=== PATIENT | male | born 1945 | race Native Hawaiian/Other Pacific Islander ===

== ENCOUNTER → 2017-02-04 | Outpatient (CLI) | payer MEDICARE, OTHER ==
[~2017-02-04] MED LIST: IBUP-238 PO; IBUP200T2 PO; TRAM50TA PO
[2017-02-04 11:02] LABS: AUTOMATED NEUTROPHIL # 3.7 TH/MM3 (1.8-7.7); BASOPHIL # 0.1 TH/MM3 (0-0.2); BASOPHIL % 0.9 % (0.0-2.0); EOSINOPHIL # 0.5 TH/MM3 (0-0.4); EOSINOPHIL % 6.7 % (0.0-4.0); HEMATOCRIT 38.4 % (39.0-51.0); HEMO FLAGS DIFF FINAL; LYMPH % 38.7 % (9.0-44.0); MEAN CELL VOLUME 86.5 FL (80.0-100.0); MEAN CORPUSCULAR HEMOGLOBIN 29.5 PG (27.0-34.0); MEAN CORPUSCULAR HGB CONC 34.1 % (32.0-36.0); MONO % 7.1 % (0.0-8.0); NEUT % 46.6 % (16.0-70.0); PLATELET COUNT 247 TH/MM3 (150-450); RED BLOOD COUNT 4.44 MIL/MM3 (4.50-5.90); RED CELL DISTRIBUTION WIDTH 13.3 % (11.6-17.2); WHITE BLOOD COUNT 7.8 TH/MM3 (4.0-11.0)
[2017-02-04 11:22] LABS: ANION GAP 9 MEQ/L (5-15); AST (GOT) 25 U/L (15-37); BICARBONATE 25.9 MEQ/L (21.0-32.0); BLOOD UREA NITROGEN 24 MG/DL (7-18); CHLORIDE 102 MEQ/L (98-107); GLOMERULAR FILTRATION RATE 64 ML/MIN (>89); GLUCOSE,FASTING 97 MG/DL (74-99); POTASSIUM 4.5 MEQ/L (3.5-5.1); SODIUM (NA) 137 MEQ/L (136-145)
[2017-02-04 11:26] LABS: ALKALINE PHOSPHATASE 74 U/L (45-117); ALT (GPT) 35 U/L (12-78); TOTAL BILIRUBIN ADULT 0.4 MG/DL (0.2-1.0)
--- NOTE | 2017-02-04 11:39 | RADRPT ---
EXAM DATE/TIME: 02/04/2017 11:22 [place] COMPARISON: No previous studies available for comparison. INDICATIONS : Evaluate for Pneumonia, Pneumothorax, and communicable diseases. Pre-op hip surgery. No chest complai nts. MEDICAL HISTORY : None. SURGICAL HISTORY : None. ENCOUNTER: Initial ACUITY: 1 day PAIN SCORE: 0/10 LOCATION: Bilateral chest FINDINGS: PA and lateral views of the chest demonstrate elevation of the right hemidiaphragm with some platelik e atelectasis versus scarring in the right lung base. There are no prior studies for comparison. Othe rwise, the rest of the lung lino are grossly clear. No definite pleural effusions or pulmonary stas a. The heart size is within normal limits. The bony structures are grossly intact.. CONCLUSION: 1. Elevation of the right hemidiaphragm with platelike atelectasis versus scarring in the right lower lung. 2. Otherwise, no other focal or acute intrathoracic disease. Ravin Ernandez MD on February 04, 2017 at 11:36 Board Certified Radiologist. This report was verified electronically.
[2017-02-04 11:56] LABS: BLOOD, URINE NEG (NEG); COMMENT (UR) CULT NOT INDICATED; CULTURE IF INDICATED CULT NOT INDICATED; GLUCOSE,URINE NEG (NEG); KETONE, URINE NEG (NEG); NITRITE,URINE NEG (NEG); PH, URINE 5.5 (5.0-8.5); SQUAMOUS EPITHELIAL CELL URINE 1 /hpf (0-5); URINE COLOR YELLOW (YELLW/STRAW)
--- NOTE | 2017-02-04 22:59 | EKG ---
Date Performed: 02/04/2017 Time Performed: 09:44:21 PTAGE: 71 years EKG: Sinus rhythm MARKED LEFT AXIS DEVIATION RIGHT BUNDLE BRANCH BLOCK ABNORMAL ECG NO PREVIOUS TRACING DOCTOR: Jac Canales Interpretating Date/Time 02/04/2017 22:57:55
== END ==
LOC: CPRE 09:03
PROVIDERS: ATTEND Orthopaedic Surgery
DX: Z01.810 Encounter for preprocedural cardiovascular examination (principal); Z01.811 Encounter for preprocedural respiratory examination; Z01.812 Encounter for preprocedural laboratory examination; M16.12 Unilateral primary osteoarthritis, left hip; R94.31 Abnormal electrocardiogram [ECG] [EKG]
CPT/HCPCS: 36415; 71020; 80053; 81001; 85025; 93005

== ENCOUNTER 2017-02-16 05:30 | Inpatient (IN) | payer MEDICARE, OTHER ==
--- NOTE | 2017-02-15 13:01 | MH ---
cc: ANDREW JAVIER DATE OF ADMISSION: 02/16/2017 DATE OF 1945 DATE OF DICTATION 02/15/2017 ADMISSION DIAGNOSIS End-stage osteoarthritis left hip ADDITIONAL DIAGNOSIS: Osteoarthritis both knees Osteoarthritis right hip. Severe lumbar spondylosis. CONTEMPLATED PROCEDURE: 1. Total hip replacement arthroplasty left hip through the anterior approach. 2. Aspiration injection right knee effusion 3. prophylactic radiation for prevention of myositis ossificans left hip. PAST HISTORY History of alcoholism. He grew up and lived in the [facility] but now in the [facility] for the past several years. 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 He saw me in with severe pain in the hips and knees and back pain. Even at that time he has severe osteoarthritis of the left hip and surgery was recommended but was not done because of insurance and other factors. He has been using [id number] NSAIDs and tramadol for pain. Lately he has been using a walker. PRESENT HISTORY: The patient saw me for this on January 31, 2017 saying that he has so much pain in his left hip is not able to ambulate without a walker, is not able to weight bear on the left leg. He is ready for surgery. He says is ready for surgery on both his hips and knees. He is now being admitted for surgical intervention of the left hip. He may choose an anterior approach in spite of the fact that he is a fairly large gentleman because he is very tall and is very stiff in his lumbar spine making him more likely to dislocate with a posterior approach. The difference between anterior posterior approaches have been discussed in the potential problems have been discussed with either approach. Post hospital course and postoperative course pain management all been discussed. Informed consent has been obtained. When the patient was seen for his preoperative visit. He has a fairly large effusion of the right knee without any redness or warmth. He has severe tricompartmental osteoarthritis both knees right worse than left. Therefore, I have decided to go ahead and aspirated his knee and injected with steroid after the surgical procedure on the left hip. This to be added to the consent when he comes in tomorrow to the same day surgery. Preoperative workup has been satisfactory. Medical clearance has been obtained. PAST SURGERIES Rhinoplasty. PAST HISTORY: He has history of alcoholism in the past but he has not drank in over a year. He has not worked in quite a while. ALLERGIES None. MEDICATIONS 1. Tramadol. 2. Ibuprofen. PHYSICAL EXAMINATION: VITAL SIGNS: Physical examination reveals a 6'4"0 inches tall and weighs 300 pounds. EXTREMITIES: He uses a walker. He can barely put his left foot down for weight bearing. He has a flexion contracture of about 15-20 degrees in the left hip. There is marked restriction range of motion with pain in the left hip. He has palpable pedal pulses in the feet moves toes well. He has multiple scars on both lower extremities but they are all well healed old there is no indication of any new skin lesions. Examination of the left groin reveals to be healthy with no indication of any skin problem there. Right knee has obvious effusion with pain on range of motion. Left knee has no pain and no effusion but also has pain and discomfort. His back is very stiff. HEAD, EYES, EARS, NOSE, AND THROAT: Head normocephalic, pupils react to light. Face symmetrical. He is missing a lot of teeth. He eventually need all the staple buttock and out of four to have a done at this time. He has not had any dental problems in the recent past. HEART: Regular rhythm. No murmurs. LUNGS: The lungs are clear to auscultation. RADIOLOGIC: X-rays of lumbar spine show severe spondylosis with multiple with osteophytic changes and degenerative disk disease. As mentioned before his hips and knees both show severe arthritis with now the left hip showing some subluxation of the joint but no obvious bone loss. The femoral head is starting to displaced superior laterally. ASSESSMENT AND PLAN: Potential risks and has a complications. The total joint arthroplasty in terms of being infection, phlebitis, blood clots, dislocation, fracture of all been discussed. Informed consent obtained. No guarantees made. MD DONNA Cee/luis /12:10 PM /12:20 PM
[~2017-02-16] VITALS: Ht 198.1 cm; Wt 135.5 kg
[~2017-02-16 05:30] MED LIST changes: -IBUP-238 PO
[2017-02-16] MEDS ORDERED: METOPROLOL TARTRATE 25 MG TAB PO PRN (06:00)
[2017-02-16] MEDS ORDERED: INSULIN HUMAN REGULAR 1,000 UNITS/10 ML VIAL SQ PRN (06:00)
[2017-02-16] MEDS ORDERED: CHLORHEXIDINE GLUCONATE 2 % 1 PACK (2 CLOTHS) TOPICAL PRN (06:00)
[2017-02-16] MEDS ORDERED: POVIDONE IODINE 5% (ANTISEPSIS KIT) 4 APPLICATIONS EACH NARE PRN (06:00)
[2017-02-16] MEDS ORDERED: SODIUM CHLORID 0.9% 500 ML IV PRN (06:00)
[2017-02-16] MEDS ORDERED: LACTATED RINGER'S 1000 ML IV PRN (06:00)
[2017-02-16] MEDS ORDERED: VANCOMYCIN 1500 MG/NS 500 ML (for 85-99 kg) IV SCH ×2 (06:15)
[2017-02-16] MEDS ORDERED: TRANEXAMIC ACID INJ 1,360 MG in SODIUM CHLORIDE 0.9% INJ 100 ML IV SCH ×5 (06:15→14:00)
[2017-02-16] MEDS ORDERED: ceFAZolin 2 GM PREMIX 50 ML IV SCH (06:15)
[2017-02-16] MEDS ORDERED: EXPAREL PERI-ARTICULAR INJECTION (TOTAL VOL. 60 ML) P-ARTICULR SCH ×2 (06:15)
[2017-02-16] MEDS ORDERED: FAMOTIDINE 20 MG/2 ML VIAL ONE (07:01)
[2017-02-16] MEDS ORDERED: ACETAMINOPHEN 1000 MG/100 ML 100 ML IV ONE (07:01)
[2017-02-16] MEDS ORDERED: GENTAMICIN SULFATE 80 MG/2 ML VIAL ONE ×2 (07:09)
[2017-02-16] MEDS ORDERED: BUPIVACAINE HCL PF 0.5% 30 ML VIAL ONE (08:26)
[2017-02-16] MEDS ORDERED: BUPIVACAINE HCL PF 0.25% 30 ML VIAL ONE (08:26)
[2017-02-16] MEDS ORDERED: DEXAMETHASONE SOD PHOS 4 MG/ML VIAL ONE (08:26)
[2017-02-16] MEDS ORDERED: methylPREDNISolone ACETATE 40 MG/ML VIAL ONE (08:27)
[2017-02-16] MEDS ORDERED: TRANEXAMIC ACID INJ 1,000 MG in SODIUM CHLORIDE 0.9% INJ 100 ML IV ONE (12:27)
[2017-02-16] MEDS ORDERED: NALOXONE HCL 0.4 MG/ML AMP IV PUSH PRN (12:30)
[2017-02-16] MEDS ORDERED: ACETAMINOPHEN/HYDROcodone 325 MG/5 MG TAB PO PRN (12:30)
[2017-02-16] MEDS ORDERED: ONDANSETRON HCL 4 MG/2 ML VIAL IVP PRN (12:30)
[2017-02-16] MEDS ORDERED: MORPHINE SULFATE 30 MG/30 ML PCA IV SCH (12:30)
[2017-02-16] MEDS ORDERED: SODIUM CHLORIDE 0.9% FLUSH 5 ML FLUSH IVF PRN (12:30)
[2017-02-16] MEDS ORDERED: TEMAZEPAM 15 MG CAP PO PRN (12:30)
[2017-02-16] MEDS ORDERED: diphenhydrAMINE HCL 50 MG/ML VIAL IV PUSH PRN (12:30)
[2017-02-16] MEDS ORDERED: DO NOT ADM ANY ANTICOAGULANT DRUGS PRN (12:50)
[2017-02-16] MEDS ORDERED: Post-op Orders (for Pharmacy) MISC XX ONE (13:00)
[2017-02-16 13:59] LABS: HEMATOCRIT 31.5 % (39.0-51.0); HEMOGLOBIN 10.7 GM/DL (13.0-17.0)
--- NOTE | 2017-02-16 13:59 | PD.CONS ---
[facility] By DR[facility] MARCO MORALES Reason for Consult Medical Management Primary Care Physician Unknown Diagnoses: History of Present Illness This is a pleasant 71 y/o male with history of End-stage osteoarthritis left hip at this time status post Left Total Hip Arthroplasty Anterior approach, Aspiration injection right knee effusion, Prophylactic radiation for prevention of myositis ossificans left hip. seen in PACU. as per Orthopedic Surgery notes he has severe OA of the left hip and surgery was recommended to him on 2011 when was first evaluated but not performed due to personal difficulties, he has been using NSAIDs and Tramadol for pain also using a Walker for ambulation Seen in PACU the patient states he does not have significant medical history other than his Osteoarthritis Appendectomy, and past history of alcohol and Tobacco dependence but now states he is not using any toxic substance. Review of Systems Constitutional: DENIES: Fever, Chills, Change in appetite Endocrine: DENIES: Heat/cold intolerance Eyes: DENIES: Blurred vision, Eye pain Musculoskeletal: COMPLAINS OF: Joint pain Except as stated in HPI: all other systems reviewed are Neg Past Family Social History Allergies: Coded Allergies: No Known Allergies (Verified Allergy, Unknown, 02/16/17) Past Medical History Osteoarthritis both knees Osteoarthritis right hip. Severe lumbar spondylosis. History of Alcoholism Past Surgical History Rhinoplasty Appendectomy Left Total knee arthroplasty today. Reported Medications Reported Meds & Active Scripts Active Reported Ibuprofen 200 Mg Tab 200 Mg PO Q4H PRN Tramadol (Tramadol HCl) 50 Mg Tab 50 Mg PO Q4H PRN Active Ordered Medications Current Medications Medications (Trade) Dose Ordered Sig/Toño Route Start Time Stop Time Status Last Admin Lactated Ringer's 1,000 ml @ 30 mls/hr Q24H PRN IV 02/16/17 06:00 02/19/17 05:59 02/16/17 06:15 Sodium Chloride 500 ml @ 30 mls/hr [id number] PRN IV 02/16/17 06:00 02/19/17 05:59 (Lopressor) 25 mg ELECTRICAL DISCHARGE MACHINE OPERATOR PRN PO 02/16/17 06:00 02/19/17 05:59 (Betadine 5% Antisepsis Kit) 1 applic ELECTRICAL DISCHARGE MACHINE OPERATOR PRN EACH NARE 02/16/17 06:00 02/19/17 05:59 02/16/17 06:05 (Chlorhexidine 2% Cloth) 3 pack ELECTRICAL DISCHARGE MACHINE OPERATOR PRN TOPICAL 02/16/17 06:00 02/19/17 05:59 02/16/17 06:00 (NovoLIN R INJ) See Protocol Table ... ELECTRICAL DISCHARGE MACHINE OPERATOR PRN SQ 02/16/17 06:00 02/19/17 05:59 Cefazolin Sodium/ Dextrose 50 ml @ 100 mls/hr ELECTRICAL DISCHARGE MACHINE OPERATOR IV 02/16/17 06:15 02/19/17 06:14 02/16/17 07:07 Vancomycin HCl 1500 mg/Sodium Chloride 515 ml @ 257.5 mls/ hr ELECTRICAL DISCHARGE MACHINE OPERATOR IV 02/16/17 06:15 02/19/17 06:14 02/16/17 07:11 Tranexamic Acid 1360 mg/Sodium Chloride 113.6 ml @ 200 mls/hr ONCE IV 02/16/17 06:15 02/16/17 17:00 02/16/17 12:27 Tranexamic Acid 1360 mg/Sodium Chloride 113.6 ml @ 200 mls/hr ONCE IV 02/16/17 06:15 02/16/17 17:00 02/16/17 13:06 Bupivacaine Liposome 20 ml/ Sodium Chloride 60 ml @ 120 mls/hr ONCE P-ARTICULR 02/16/17 06:15 02/16/17 16:00 02/16/17 12:41 Tranexamic Acid 1000 mg/Sodium Chloride 110 ml @ 0 mls/hr ONCE ONCE IV 02/16/17 12:27 02/16/17 12:28 UNV (NS Flush) 2 ml UNSCH PRN IVF 02/16/17 12:30 UNV (NS Flush) 2 ml BID IVF 02/16/17 21:00 UNV Cefazolin Sodium/ Dextrose 50 ml @ 100 mls/hr Q6H IV 02/16/17 12:30 02/17/17 00:59 UNV Vancomycin HCl 1500 mg/Sodium Chloride 515 ml @ 257.5 mls/ hr Q12H IV 02/16/17 23:00 02/17/17 00:59 UNV (Post-op Orders (for Pharmacy)) STAT ONCE XX 02/16/17 12:30 02/16/17 12:31 UNV (Lovenox Inj) 40 mg Q24H SQ 02/16/17 12:30 UNV ([place] 5-325 Mg) 2 tab Q6H PRN PO 02/16/17 12:30 UNV (Ultram) 100 mg Q6H PRN PO 02/16/17 12:30 UNV (Toradol Inj) 30 mg Q8H IVP 02/16/17 12:30 02/18/17 20:31 UNV Tranexamic Acid / Sodium Chloride 100 ml @ 200 mls/hr UNSCH IV 02/16/17 12:30 02/16/17 12:59 UNV (Zofran Inj) 4 mg Q6H PRN IVP 02/16/17 12:30 UNV (Colace) 100 mg BID PO 02/17/17 21:00 UNV (Restoril) 15 mg HS PRN PO 02/16/17 12:30 UNV (Narcan Inj) 0.4 mg UNSCH PRN IV PUSH 02/16/17 12:30 (Benadryl Inj) 25 mg Q6H PRN IV PUSH 02/16/17 12:30 UNV (Morphine 1 Mg/ ml FARM OR RANCH ANIMAL CARETAKER) 30 mg UNSCH IV 02/16/17 12:30 FARM OR RANCH ANIMAL CARETAKER Dosage Infused (Pha) 1 Q8HR .XX 02/16/17 14:00 (Ofirmev 1000 Mg/ 100 ml Inj) 1,000 mg Q12HR IV 02/16/17 14:00 02/18/17 21:01 UNV Dextrose/Sodium Chloride 1,000 ml @ 125 mls/hr Q8H IV 02/16/17 12:26 UNV (Ofirmev 1000 Mg/ 100 ml Inj) 1,000 mg Q12H IV 02/17/17 10:30 UNV Miscellaneous Information ALL NURSING DEPARTME... UNSCH PRN .XX 02/16/17 12:50 02/17/17 12:49 Family History Asked and denied. Social History Lives with his Son and denies any toxic habit. Physical Exam Vital Signs Vital Signs Date Time Temp Pulse Resp B/P (MAP) Pulse Ox O2 Delivery O2 Flow Rate FiO2 02/16/17 06:05 98.6 79 20 110/74 (86) 96 Physical Exam GENERAL: Obesity in no acute distress. SKIN: No rashes, ecchymoses or lesions. Cool and dry. HEAD: Atraumatic. Normocephalic. No temporal or scalp tenderness. EYES: Pupils equal round and reactive. Extraocular motions intact. No scleral icterus. No injection or drainage. ENT: Nose without bleeding, purulent drainage or septal hematoma. Throat without erythema, tonsillar hypertrophy or exudate. Uvula midline. Airway patent. NECK: Trachea midline. No JVD or lymphadenopathy. Supple, nontender, no meningeal signs. CARDIOVASCULAR: Regular rate and rhythm without murmurs, gallops, or rubs. RESPIRATORY: Clear to auscultation. Breath sounds equal bilaterally. No wheezes , rales, or rhonchi. GASTROINTESTINAL: Abdomen soft, non-tender, nondistended. No hepato-splenomegaly , or palpable masses. No guarding. MUSCULOSKELETAL: No clubbing cyanosis or edema, clean surgical dressing. NEUROLOGICAL: Awake and alert. Cranial nerves II through XII intact. Motor and sensory grossly within normal limits. Five out of 5 muscle strength in all muscle groups. Normal speech. Laboratory Laboratory Tests Test 02/16/17 12:02 Date/Time Source Procedure Growth Status 02/16/17 12:02 Fluid Synovial Fluid Fungal Smear Pending Received 02/16/17 12:02 Fluid Synovial Fluid Fungal Culture Pending Received Assessment and Plan Assessment and Plan 1. 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 pain medicine in Chart, asked to complete laboratory and follow in am tomorrow. DVT as per Orthopedic Surgery. Appreciated Doctor Marco Morlaes for this consult. Code Status Full Code. Discussed Condition With patient and Nurse In PACU. Antonio Boone MD Feb 16, 2017 13:59
--- NOTE | 2017-02-16 13:59 | PD.CONS ---
HPI Service [facility] Consult Requested By DR. MARCO MORALES Reason for Consult Medical Management Primary Care Physician Unknown Diagnoses: History of Present Illness This is a pleasant 71 y/o male with history of End-stage osteoarthritis left hip at this time status post Left Total Hip Arthroplasty Anterior approach, Aspiration injection right knee effusion, Prophylactic radiation for prevention of myositis ossificans left hip. seen in PACU. as per Orthopedic Surgery notes he has severe OA of the left hip and surgery was recommended to him on 2011 when was first evaluated but not performed due to personal difficulties, he has been using NSAIDs and Tramadol for pain also using a Walker for ambulation Seen in PACU the patient states he does not have significant medical history other than his Osteoarthritis Appendectomy, and past history of alcohol and Tobacco dependence but now states he is not using any toxic substance. Review of Systems Constitutional: DENIES: Fever, Chills, Change in appetite Endocrine: DENIES: Heat/cold intolerance Eyes: DENIES: Blurred vision, Eye pain Musculoskeletal: COMPLAINS OF: Joint pain Except as stated in HPI: all other systems reviewed are Neg Past Family Social History Allergies: Coded Allergies: No Known Allergies (Verified Allergy, Unknown, 02/16/17) Past Medical History Osteoarthritis both knees Osteoarthritis right hip. Severe lumbar spondylosis. History of Alcoholism Past Surgical History Rhinoplasty Appendectomy Left Total knee arthroplasty today. Reported Medications Reported Meds & Active Scripts Active Reported Ibuprofen 200 Mg Tab 200 Mg PO Q4H PRN Tramadol (Tramadol HCl) 50 Mg Tab 50 Mg PO Q4H PRN Active Ordered Medications Current Medications Medications (Trade) Dose Ordered Sig/Toño Route Start Time Stop Time Status Last Admin Lactated Ringer's 1,000 ml @ 30 mls/hr Q24H PRN IV 02/16/17 06:00 02/19/17 05:59 02/16/17 06:15 Sodium Chloride 500 ml @ 30 mls/hr [id number] PRN IV 02/16/17 06:00 02/19/17 05:59 (Lopressor) 25 mg ELEVATOR DISPATCHER PRN PO 02/16/17 06:00 02/19/17 05:59 (Betadine 5% Antisepsis Kit) 1 applic ELEVATOR DISPATCHER PRN EACH NARE 02/16/17 06:00 02/19/17 05:59 02/16/17 06:05 (Chlorhexidine 2% Cloth) 3 pack ELEVATOR DISPATCHER PRN TOPICAL 02/16/17 06:00 02/19/17 05:59 02/16/17 06:00 (NovoLIN R INJ) See Protocol Table ... ELEVATOR DISPATCHER PRN SQ 02/16/17 06:00 02/19/17 05:59 Cefazolin Sodium/ Dextrose 50 ml @ 100 mls/hr ELEVATOR DISPATCHER IV 02/16/17 06:15 02/19/17 06:14 02/16/17 07:07 Vancomycin HCl 1500 mg/Sodium Chloride 515 ml @ 257.5 mls/ hr ELEVATOR DISPATCHER IV 02/16/17 06:15 02/19/17 06:14 02/16/17 07:11 Tranexamic Acid 1360 mg/Sodium Chloride 113.6 ml @ 200 mls/hr ONCE IV 02/16/17 06:15 02/16/17 17:00 02/16/17 12:27 Tranexamic Acid 1360 mg/Sodium Chloride 113.6 ml @ 200 mls/hr ONCE IV 02/16/17 06:15 02/16/17 17:00 02/16/17 13:06 Bupivacaine Liposome 20 ml/ Sodium Chloride 60 ml @ 120 mls/hr ONCE P-ARTICULR 02/16/17 06:15 02/16/17 16:00 02/16/17 12:41 Tranexamic Acid 1000 mg/Sodium Chloride 110 ml @ 0 mls/hr ONCE ONCE IV 02/16/17 12:27 02/16/17 12:28 UNV (NS Flush) 2 ml UNSCH PRN IVF 02/16/17 12:30 UNV (NS Flush) 2 ml BID IVF 02/16/17 21:00 UNV Cefazolin Sodium/ Dextrose 50 ml @ 100 mls/hr Q6H IV 02/16/17 12:30 02/17/17 00:59 UNV Vancomycin HCl 1500 mg/Sodium Chloride 515 ml @ 257.5 mls/ hr Q12H IV 02/16/17 23:00 02/17/17 00:59 UNV (Post-op Orders (for Pharmacy)) STAT ONCE XX 02/16/17 12:30 02/16/17 12:31 UNV (Lovenox Inj) 40 mg Q24H SQ 02/16/17 12:30 UNV ([place] 5-325 Mg) 2 tab Q6H PRN PO 02/16/17 12:30 UNV (Ultram) 100 mg Q6H PRN PO 02/16/17 12:30 UNV (Toradol Inj) 30 mg Q8H IVP 02/16/17 12:30 02/18/17 20:31 UNV Tranexamic Acid / Sodium Chloride 100 ml @ 200 mls/hr UNSCH IV 02/16/17 12:30 02/16/17 12:59 UNV (Zofran Inj) 4 mg Q6H PRN IVP 02/16/17 12:30 UNV (Colace) 100 mg BID PO 02/17/17 21:00 UNV (Restoril) 15 mg HS PRN PO 02/16/17 12:30 UNV (Narcan Inj) 0.4 mg UNSCH PRN IV PUSH 02/16/17 12:30 (Benadryl Inj) 25 mg Q6H PRN IV PUSH 02/16/17 12:30 UNV (Morphine 1 Mg/ ml BOX INSPECTOR) 30 mg UNSCH IV 02/16/17 12:30 BOX INSPECTOR Dosage Infused (Pha) 1 Q8HR .XX 02/16/17 14:00 (Ofirmev 1000 Mg/ 100 ml Inj) 1,000 mg Q12HR IV 02/16/17 14:00 02/18/17 21:01 UNV Dextrose/Sodium Chloride 1,000 ml @ 125 mls/hr Q8H IV 02/16/17 12:26 UNV (Ofirmev 1000 Mg/ 100 ml Inj) 1,000 mg Q12H IV 02/17/17 10:30 UNV Miscellaneous Information ALL NURSING DEPARTME... UNSCH PRN .XX 02/16/17 12:50 02/17/17 12:49 Family History Asked and denied. Social History Lives with his Son and denies any toxic habit. Physical Exam Vital Signs Vital Signs Date Time Temp Pulse Resp B/P (MAP) Pulse Ox O2 Delivery O2 Flow Rate FiO2 02/16/17 06:05 98.6 79 20 110/74 (86) 96 Physical Exam GENERAL: Obesity in no acute distress. SKIN: No rashes, ecchymoses or lesions. Cool and dry. HEAD: Atraumatic. Normocephalic. No temporal or scalp tenderness. EYES: Pupils equal round and reactive. Extraocular motions intact. No scleral icterus. No injection or drainage. ENT: Nose without bleeding, purulent drainage or septal hematoma. Throat without erythema, tonsillar hypertrophy or exudate. Uvula midline. Airway patent. NECK: Trachea midline. No JVD or lymphadenopathy. Supple, nontender, no meningeal signs. CARDIOVASCULAR: Regular rate and rhythm without murmurs, gallops, or rubs. RESPIRATORY: Clear to auscultation. Breath sounds equal bilaterally. No wheezes , rales, or rhonchi. GASTROINTESTINAL: Abdomen soft, non-tender, nondistended. No hepato-splenomegaly , or palpable masses. No guarding. MUSCULOSKELETAL: No clubbing cyanosis or edema, clean surgical dressing. NEUROLOGICAL: Awake and alert. Cranial nerves II through XII intact. Motor and sensory grossly within normal limits. Five out of 5 muscle strength in all muscle groups. Normal speech. Laboratory Laboratory Tests Test 02/16/17 12:02 Date/Time Source Procedure Growth Status 02/16/17 12:02 Fluid Synovial Fluid Fungal Smear Pending Received 02/16/17 12:02 Fluid Synovial Fluid Fungal Culture Pending Received Assessment and Plan Assessment and Plan 1. 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 pain medicine in Chart, asked to complete laboratory and follow in am tomorrow. DVT as per Orthopedic Surgery. Appreciated Doctor Marco Morales for this consult. Code Status Full Code. Discussed Condition With patient and Nurse In PACU. Antonio Boone MD Feb 16, 2017 13:59
--- NOTE | 2017-02-16 13:59 | PD.CONS ---
[facility] Request[facility] By DR. MARCO MORALES Reason for Consult Medical Management Primary Care Physician Unknown Diagnoses: History of Present Illness This is a pleasant 71 y/o male with history of End-stage osteoarthritis left hip at this time status post Left Total Hip Arthroplasty Anterior approach, Aspiration injection right knee effusion, Prophylactic radiation for prevention of myositis ossificans left hip. seen in PACU. as per Orthopedic Surgery notes he has severe OA of the left hip and surgery was recommended to him on 2011 when was first evaluated but not performed due to personal difficulties, he has been using NSAIDs and Tramadol for pain also using a Walker for ambulation Seen in PACU the patient states he does not have significant medical history other than his Osteoarthritis Appendectomy, and past history of alcohol and Tobacco dependence but now states he is not using any toxic substance. Review of Systems Constitutional: DENIES: Fever, Chills, Change in appetite Endocrine: DENIES: Heat/cold intolerance Eyes: DENIES: Blurred vision, Eye pain Musculoskeletal: COMPLAINS OF: Joint pain Except as stated in HPI: all other systems reviewed are Neg Past Family Social History Allergies: Coded Allergies: No Known Allergies (Verified Allergy, Unknown, 02/16/17) Past Medical History Osteoarthritis both knees Osteoarthritis right hip. Severe lumbar spondylosis. History of Alcoholism Past Surgical History Rhinoplasty Appendectomy Left Total knee arthroplasty today. Reported Medications Reported Meds & Active Scripts Active Reported Ibuprofen 200 Mg Tab 200 Mg PO Q4H PRN Tramadol (Tramadol HCl) 50 Mg Tab 50 Mg PO Q4H PRN Active Ordered Medications Current Medications Medications (Trade) Dose Ordered Sig/Toño Route Start Time Stop Time Status Last Admin Lactated Ringer's 1,000 ml @ 30 mls/hr Q24H PRN IV 02/16/17 06:00 02/19/17 05:59 02/16/17 06:15 Sodium Chloride 500 ml @ 30 mls/hr [id number] PRN IV 02/16/17 06:00 02/19/17 05:59 (Lopressor) 25 mg WELL HEAD PUMPER PRN PO 02/16/17 06:00 02/19/17 05:59 (Betadine 5% Antisepsis Kit) 1 applic WELL HEAD PUMPER PRN EACH NARE 02/16/17 06:00 02/19/17 05:59 02/16/17 06:05 (Chlorhexidine 2% Cloth) 3 pack WELL HEAD PUMPER PRN TOPICAL 02/16/17 06:00 02/19/17 05:59 02/16/17 06:00 (NovoLIN R INJ) See Protocol Table ... WELL HEAD PUMPER PRN SQ 02/16/17 06:00 02/19/17 05:59 Cefazolin Sodium/ Dextrose 50 ml @ 100 mls/hr WELL HEAD PUMPER IV 02/16/17 06:15 02/19/17 06:14 02/16/17 07:07 Vancomycin HCl 1500 mg/Sodium Chloride 515 ml @ 257.5 mls/ hr WELL HEAD PUMPER IV 02/16/17 06:15 02/19/17 06:14 02/16/17 07:11 Tranexamic Acid 1360 mg/Sodium Chloride 113.6 ml @ 200 mls/hr ONCE IV 02/16/17 06:15 02/16/17 17:00 02/16/17 12:27 Tranexamic Acid 1360 mg/Sodium Chloride 113.6 ml @ 200 mls/hr ONCE IV 02/16/17 06:15 02/16/17 17:00 02/16/17 13:06 Bupivacaine Liposome 20 ml/ Sodium Chloride 60 ml @ 120 mls/hr ONCE P-ARTICULR 02/16/17 06:15 02/16/17 16:00 02/16/17 12:41 Tranexamic Acid 1000 mg/Sodium Chloride 110 ml @ 0 mls/hr ONCE ONCE IV 02/16/17 12:27 02/16/17 12:28 UNV (NS Flush) 2 ml UNSCH PRN IVF 02/16/17 12:30 UNV (NS Flush) 2 ml BID IVF 02/16/17 21:00 UNV Cefazolin Sodium/ Dextrose 50 ml @ 100 mls/hr Q6H IV 02/16/17 12:30 02/17/17 00:59 UNV Vancomycin HCl 1500 mg/Sodium Chloride 515 ml @ 257.5 mls/ hr Q12H IV 02/16/17 23:00 02/17/17 00:59 UNV (Post-op Orders (for Pharmacy)) STAT ONCE XX 02/16/17 12:30 02/16/17 12:31 UNV (Lovenox Inj) 40 mg Q24H SQ 02/16/17 12:30 UNV ([place] 5-325 Mg) 2 tab Q6H PRN PO 02/16/17 12:30 UNV (Ultram) 100 mg Q6H PRN PO 02/16/17 12:30 UNV (Toradol Inj) 30 mg Q8H IVP 02/16/17 12:30 02/18/17 20:31 UNV Tranexamic Acid / Sodium Chloride 100 ml @ 200 mls/hr UNSCH IV 02/16/17 12:30 02/16/17 12:59 UNV (Zofran Inj) 4 mg Q6H PRN IVP 02/16/17 12:30 UNV (Colace) 100 mg BID PO 02/17/17 21:00 UNV (Restoril) 15 mg HS PRN PO 02/16/17 12:30 UNV (Narcan Inj) 0.4 mg UNSCH PRN IV PUSH 02/16/17 12:30 (Benadryl Inj) 25 mg Q6H PRN IV PUSH 02/16/17 12:30 UNV (Morphine 1 Mg/ ml DISABILITIES SERVICES OFFICER) 30 mg UNSCH IV 02/16/17 12:30 DISABILITIES SERVICES OFFICER Dosage Infused (Pha) 1 Q8HR .XX 02/16/17 14:00 (Ofirmev 1000 Mg/ 100 ml Inj) 1,000 mg Q12HR IV 02/16/17 14:00 02/18/17 21:01 UNV Dextrose/Sodium Chloride 1,000 ml @ 125 mls/hr Q8H IV 02/16/17 12:26 UNV (Ofirmev 1000 Mg/ 100 ml Inj) 1,000 mg Q12H IV 02/17/17 10:30 UNV Miscellaneous Information ALL NURSING DEPARTME... UNSCH PRN .XX 02/16/17 12:50 02/17/17 12:49 Family History Asked and denied. Social History Lives with his Son and denies any toxic habit. Physical Exam Vital Signs Vital Signs Date Time Temp Pulse Resp B/P (MAP) Pulse Ox O2 Delivery O2 Flow Rate FiO2 02/16/17 06:05 98.6 79 20 110/74 (86) 96 Physical Exam GENERAL: Obesity in no acute distress. SKIN: No rashes, ecchymoses or lesions. Cool and dry. HEAD: Atraumatic. Normocephalic. No temporal or scalp tenderness. EYES: Pupils equal round and reactive. Extraocular motions intact. No scleral icterus. No injection or drainage. ENT: Nose without bleeding, purulent drainage or septal hematoma. Throat without erythema, tonsillar hypertrophy or exudate. Uvula midline. Airway patent. NECK: Trachea midline. No JVD or lymphadenopathy. Supple, nontender, no meningeal signs. CARDIOVASCULAR: Regular rate and rhythm without murmurs, gallops, or rubs. RESPIRATORY: Clear to auscultation. Breath sounds equal bilaterally. No wheezes , rales, or rhonchi. GASTROINTESTINAL: Abdomen soft, non-tender, nondistended. No hepato-splenomegaly , or palpable masses. No guarding. MUSCULOSKELETAL: No clubbing cyanosis or edema, clean surgical dressing. NEUROLOGICAL: Awake and alert. Cranial nerves II through XII intact. Motor and sensory grossly within normal limits. Five out of 5 muscle strength in all muscle groups. Normal speech. Laboratory Laboratory Tests Test 02/16/17 12:02 Date/Time Source Procedure Growth Status 02/16/17 12:02 Fluid Synovial Fluid Fungal Smear Pending Received 02/16/17 12:02 Fluid Synovial Fluid Fungal Culture Pending Received Assessment and Plan Assessment and Plan 1. 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 pain medicine in Chart, asked to complete laboratory and follow in am tomorrow. DVT as per Orthopedic Surgery. Appreciated Doctor Marco Morales for this consult. Code Status Full Code. Discussed Condition With patient and Nurse In PACU. Antonio Boone MD Feb 16, 2017 13:59
[2017-02-16] MEDS: PCA - TOTAL MG MORPHINE DELIVERED PER SHIFT SCH ×2 (14:00→22:33)
[2017-02-16] MEDS ORDERED: ACETAMINOPHEN 1000 MG/100 ML VIAL IV SCH (14:00)
[2017-02-16] MEDS ORDERED: *morphine SULFATE 8 MG/ML PERIprocedure ONLY ONE (14:01)
--- NOTE | 2017-02-16 14:14 | MP ---
cc: ANDREW LARA DATE OF SURGERY: 02/16/2017 PREOPERATIVE DIAGNOSIS 1. Osteoarthritis, left hip. 2. Osteoarthritis, right hip. 3. Osteoarthritis, bilateral knees. 4. Large effusion, right knee. POSTOPERATIVE DIAGNOSIS 1. Osteoarthritis, left hip. 2. Osteoarthritis, right hip. 3. Osteoarthritis, bilateral knees. 4. Large effusion, right knee. OPERATIVE PROCEDURE 1. Total hip replacement arthroplasty, right hip, through an anterior supine intramuscular approach using [employer] components. 2. Arthrocentesis right knee with injection of steroid. Level of difficulty, moderate to severe:patient over 300 lbs, 6' 4" tall and flexion contractue left hip IMPLANTS Cup: 70 mm with single dome screw and a flat base liner. Stem: 20 mm Taperloc, standard offset. Head: 36 mm ceramic -[address] Lara. ANESTHESIA General. TECHNIQUE After induction of general anesthesia a Kumar catheter was introduced. The patient was placed appropriately on the operating table with head and foot extensions because of his height. The lower end of the table was padded with double eggcrate and tape. The patient was brought with his pelvis to the brink of the table so we could extend his hip. Both hips and lower abdomen and both lower extremities were thoroughly prepped with alcohol and ChloraPrep and draped in routine fashion including multiple drapes. An incision was then made about five inches long, two fingerbreadths below and lateral to the anterior superior iliac spine. Extending distally the fascia was identified and subcutaneous tissue elevated. The fibers of the vastus lateralis were identified by the purplish coloration and the fascia incised 1 cm lateral to the edge of the tensor fascia karime. Finger dissection was carried out. Retractors were introduced. Fascia was incised. The circumflex vessels were identified, clamped and cauterized. We also used the Battery [employer] system for this. Blunt dissection was carried out superior to inferior and anterior retractors were placed to delineate the capsule and then after using the Aquamantys liberally on the capsule a capsulectomy was carried out. There were significant osteophytic changes at the neck which were all excised to be able to make clean cuts with the saw. Fluoroscopic imaging was carried out to identify the site of osteotomy. Proximal and distal osteotomies were carried out and because of the significant spurring and osteophytic changes some time had to be spent to remove this thick wafer of bone and then excise the head of the femur with a Steinmann pin. Further resection of the femoral neck was carried out after fluc8 imaging. Dissection was carried out to excise the labrum, particularly posteriorly. Retractors were introduced. Bony confines were palpated and visualized. Hemispherical cutout reamers were used up to 64 mm, and then the standard reamers were used which entailed some difficulty and time involved. At any rate we reamed them to 69 mm, watched it fluoroscopically and then impacted a 70 mm cup and a single dome screw was placed 30 mm long. Polypectomy was impacted in and it bottomed out nicely. Attention was then directed to the femur. Considerable time had to be taken to complete the dissection around the femoral neck and the inner surface of the greater trochanter so as to be able to elevate the hip into the wound with appropriate retraction. We used the Omni-Tract tabletop retractor and also put him in reverse Trendelenburg as well as put the foot down. At any rate we got good access followed by using cookie-cutter and canal finder and broaches to 20 mm broach which fits very nicely. This was removed and a 20 mm standard offset Taperloc stem impacted in place and then trial reduction carried out with a -3 head. Everything looked good except that we probably could do with a little more length in this hip, but dislocation was quite difficult. Once it was dislocated a 36 mm ceramic standard neck length head was placed on the Aldana taper and final reduction was carried out. There was good position, alignment and stability. Judging by the fluoroscopic imaging we possibly had lengthened him about 3 or 4 mm. He has significant pelvic tilt making limb length assessment quite difficult. The wound was irrigated with saline solution. There was good hemostasis. The fascia was closed with #2 Quill, the subcutaneous tissue with 2-0 Vicryl, skin with subcuticular 3-0 Quill. A special dressing with suction was then placed over the incision. The right knee area was cleaned. It had already been prepped and using new gloves an 18-gauge spinal needle was introduced superolaterally and about 80 cc of clear serous fluid was obtained. A mixture of 1 mL of Decadron, 1 mL of Depo-Medrol and 3 mL of Marcaine was instilled into the joint. Pressure was applied and then a band-aid applied. The patient was transferred to the recovery room in satisfactory condition with an abduction pillow. The patient tolerated the procedure well. TRANSFUSIONS AND COMPLICATIONS None. POSTOPERATIVE CONDITION Satisfactory. ESTIMATED BLOOD LOSS 450 mL. MD DONNA Cee/ROXIE /12:25 PM /2:17 PM MTDKiara
--- NOTE | 2017-02-16 14:27 | RADRPT ---
EXAM DATE/TIME: 02/16/2017 13:24 [facility] COMPARISON: HIP LEFT (AP&LAT 2/3VWS) WO AP PELVIS, February 16, 2017, 11:53. INDICATIONS : Post op left hip surgery. MEDICAL HISTORY : None. SURGICAL HISTORY : None. ENCOUNTER: Initial ACUITY: 1 day PAIN SCORE: Non-responsive. LOCATION: Left hip FINDINGS: A two view examination of the left hip was performed. Left hip arthroplasty. Postsurgical changes. No hardware loosening or fracture. The acetabulum is grossly intact. CONCLUSION: Left hip arthroplasty. Tim Nava MD on February 16, 2017 at 14:25 Board Certified Radiologist. This report was verified electronically.
[2017-02-16 14:42] VITALS: BP 134/87; PULSE 89; RESP 17; TEMP 96.5; O2SAT 97
[2017-02-16 14:43] LABS: WBC, SYNOVIAL FLUID 430 /MM3 (0-200)
--- NOTE | 2017-02-16 14:49 | RADRPT ---
EXAM DATE/TIME: 02/16/2017 11:53 [facility] COMPARISON: No previous studies available for comparison. INDICATIONS : Left total hip replacement in OR. MEDICAL HISTORY : None. SURGICAL HISTORY : None. ENCOUNTER: Initial ACUITY: 1 day PAIN SCORE: Non-responsive. LOCATION: Left hip CONCLUSION: Fluoroscopic images during left hip arthroplasty. Tim Nava MD on February 16, 2017 at 14:47 Board Certified Radiologist. This report was verified electronically.
[2017-02-16] MEDS: DEXT 5%-NACL 0.9% 1000 ML INJ 1,000 ML IV SCH (15:00)
[2017-02-16] MEDS: ceFAZolin 2 GM PREMIX 50 ML IV SCH ×2 (18:05→22:32)
[2017-02-16] MEDS: KETOROLAC TROMETHAMINE 30 MG/ML (IVP) VIAL IVP SCH ×2 (18:05→23:16)
[2017-02-16 18:20] LABS: CHOLESTEROL 134 MG/DL (120-200); TRIGLYCERIDES 89 MG/DL (42-150)
[2017-02-16 18:45] LABS: CHOLESTEROL/ HDL RATIO 2.38 RATIO; HDL CHOLESTEROL 56.1 MG/DL (40.0-60.0); LDL CHOLESTEROL 60 MG/DL (0-99)
[2017-02-16 19:15] LABS: HEMOGLOBIN A1C 5.8 % (4.3-6.0)
[2017-02-16] MEDS: SODIUM CHLORIDE 0.9% FLUSH 5 ML FLUSH IVF SCH (19:56)
[2017-02-16 20:54] VITALS: BP 144/85; PULSE 92; RESP 20; TEMP 97.9; O2SAT 99
[2017-02-16] MEDS ORDERED: VANCOMYCIN INJ 1,500 MG in SODIUM CHLORID 0.9% 500 ML INJ 500 ML IV SCH (23:00)
[2017-02-17] VITALS (8 sets, daily range): BP systolic 111–151; BP diastolic 70–93; PULSE 90–112; RESP 16–20; TEMP 97.4–98.5; O2SAT 95–100
[2017-02-17] MEDS: ceFAZolin 2 GM PREMIX 50 ML IV SCH (03:52)
[2017-02-17] MEDS: DEXT 5%-NACL 0.9% 1000 ML INJ 1,000 ML IV SCH ×4 (03:55→21:13)
[2017-02-17] MEDS: ACETAMINOPHEN 1000 MG/100 ML VIAL IV SCH ×2 (05:07→17:48)
[2017-02-17] MEDS: PCA - TOTAL MG MORPHINE DELIVERED PER SHIFT SCH (05:23)
[2017-02-17 06:53] LABS: HEMOGLOBIN 10.4 GM/DL (13.0-17.0)
[2017-02-17 07:26] LABS: BICARBONATE 25.6 MEQ/L (21.0-32.0); CALCIUM 8.2 MG/DL (8.5-10.1); CREATININE 1.36 MG/DL (0.60-1.30)
--- NOTE | 2017-02-17 07:46 | PD.ORT.PN ---
Subjective Post Op Day #: 1 Pain Scale: 2 Subjective Remarks not moving left hip, no pain, right knee much better Objective Vitals Microbiology Date/Time Source Procedure Growth Status 02/16/17 12:02 Fluid Synovial Fluid Fungal Smear Pending Received 02/16/17 12:02 Fluid Synovial Fluid Fungal Culture Pending Received Vital Signs Date Time Temp Pulse Resp B/P (MAP) Pulse Ox O2 Delivery O2 Flow Rate FiO2 02/17/17 05:49 98.4 98 18 151/93 (112) 100 02/17/17 05:23 18 02/17/17 00:48 98.5 90 20 111/92 (98) 96 02/16/17 22:33 17 02/16/17 20:54 97.9 92 20 144/85 (104) 99 02/16/17 20:01 Nasal Cannula 3.00 02/16/17 15:50 Nasal Cannula 2.00 02/16/17 14:42 96.5 89 17 134/87 (103) 97 02/16/17 14:30 82 13 134/80 (98) 98 Nasal Cannula 2 02/16/17 14:00 84 13 133/76 (95) 98 Nasal Cannula 2 02/16/17 13:55 16 02/16/17 13:45 84 16 109/58 (75) 98 Nasal Cannula 2 02/16/17 13:30 85 15 127/73 (91) 95 Nasal Cannula 2 02/16/17 13:15 79 16 125/77 (93) 92 Nasal Cannula 2 02/16/17 13:00 83 18 116/67 (83) 95 Nasal Cannula 2 02/16/17 12:48 97.8 87 16 133/85 (101) 94 Nasal Cannula 2 I/O 02/16/17 02/16/17 02/16/17 02/17/17 02/17/17 02/17/17 07:00 15:00 23:00 07:00 15:00 23:00 Intake Total 3000 ml 520 ml Output Total 800 ml 2500 ml Balance 2200 ml -1980 ml Intake Oral 520 ml Other 3000 ml Output Urine Total 200 ml 2500 ml Estimated Blood Loss 600 ml Result Diagram: 02/17/1715 02/17/1715 Assessment & Plan Ortho Post Op Day #: 1 Problem List: Assessment and Plan awake, alert, comfortable. Moves toes well, works quads well. Labs and X rays OK To [facility] tuesday Carter Lara MD Feb 17, 2017 07:46
[2017-02-17] MEDS: SODIUM CHLORIDE 0.9% FLUSH 5 ML FLUSH IVF SCH ×2 (09:00→19:59)
[2017-02-17] MEDS: CELECOXIB 200 MG CAP PO SCH (09:28)
[2017-02-17] MEDS: KETOROLAC TROMETHAMINE 30 MG/ML (IVP) VIAL IVP SCH ×3 (09:29→23:39)
[2017-02-17] MEDS ORDERED: INFLUENZA VIRUS VACCINE (QUADRIVALENT) 0.5 ML SYR IM ONE (10:00)
[2017-02-17] MEDS ORDERED: PNEUMOCOCCAL POLYVALENT INJ 25 MCG/0.5 ML SYR IM ONE (10:00)
--- NOTE | 2017-02-17 10:20 | RC ---
cc: ANDREW JAVIER BRAD A. MD DATE OF SERVICE 02/16/2017 04:00 p.m. Mr. Tran is a 71-year-old male who underwent a left hip arthroplasty for end-stage osteoarthritis of his left hip. He has osteoarthritis of both knees and both hips as well as severe lumbar spondylosis. He does not recall having any radiation therapy in the past. We are asked to see him for prevention of ossification of bone of the left hip. PAST MEDICAL HISTORY Significant for playing cricket. He lives in the [facility]. He has had pain for sometime. He is walking with a walker. He underwent surgery. He comes down to discuss treatment considerations. We discussed radiation therapy has been shown to decrease the risk of heterotopic ossification of bone. Alternative would be anti-inflammatories. He accepts pursuing radiation therapy. Our plan would be 7 Gy left hip, treatment on 02/17/2017. He expressed good understanding of treatment approach. Consent obtained. We discussed the risk of wound healing. Also, the risk of severe injury such as injury to the bone, joint, soft tissue and muscle. He expressed good understanding of the treatment approach. Denny Ruiz MD Radiation Oncologist NIKO/ROSE MARY /4:08 PM /10:11 AM
--- NOTE | 2017-02-17 10:20 | RC ---
cc: ANDREW JAVIER BRAD A. MD DATE OF SERVICE 02/16/2017 04:00 p.m. Mr. Tran is a 71-year-old male who underwent a left hip arthroplasty for end-stage osteoarthritis of his left hip. He has osteoarthritis of both knees and both hips as well as severe lumbar spondylosis. He does not recall having any radiation therapy in the past. We are asked to see him for prevention of ossification of bone of the left hip. PAST MEDICAL HISTORY Significant for playing cricket. He lives in the [facility]. He has had pain for sometime. He is walking with a walker. He underwent surgery. He comes down to discuss treatment considerations. We discussed radiation therapy has been shown to decrease the risk of heterotopic ossification of bone. Alternative would be anti-inflammatories. He accepts pursuing radiation therapy. Our plan would be 7 Gy left hip, treatment on 02/17/2017. He expressed good understanding of treatment approach. Consent obtained. We discussed the risk of wound healing. Also, the risk of severe injury such as injury to the bone, joint, soft tissue and muscle. He expressed good understanding of the treatment approach. Denny Ruiz MD Radiation Oncologist NIKO/ROSE MARY /4:08 PM /10:11 AM
--- NOTE | 2017-02-17 11:51 | HHI.PR ---
Subjective Remarks resting comfortably with no distress. pain is controlled. no new complaints. Objective Vitals Vital Signs Date Time Temp Pulse Resp B/P (MAP) Pulse Ox O2 Delivery O2 Flow Rate FiO2 02/17/17 09:22 Nasal Cannula 2.00 02/17/17 08:00 97.8 112 18 120/82 (95) 99 02/17/17 05:49 98.4 98 18 151/93 (112) 100 02/17/17 05:23 18 02/17/17 00:48 98.5 90 20 111/92 (98) 96 02/16/17 22:33 17 02/16/17 20:54 97.9 92 20 144/85 (104) 99 02/16/17 20:01 Nasal Cannula 3.00 02/16/17 15:50 Nasal Cannula 2.00 02/16/17 14:42 96.5 89 17 134/87 (103) 97 02/16/17 14:30 82 13 134/80 (98) 98 Nasal Cannula 2 02/16/17 14:00 84 13 133/76 (95) 98 Nasal Cannula 2 02/16/17 13:55 16 02/16/17 13:45 84 16 109/58 (75) 98 Nasal Cannula 2 02/16/17 13:30 85 15 127/73 (91) 95 Nasal Cannula 2 02/16/17 13:15 79 16 125/77 (93) 92 Nasal Cannula 2 02/16/17 13:00 83 18 116/67 (83) 95 Nasal Cannula 2 02/16/17 12:48 97.8 87 16 133/85 (101) 94 Nasal Cannula 2 I/O 02/16/17 02/16/17 02/16/17 02/17/17 02/17/17 02/17/17 07:00 15:00 23:00 07:00 15:00 23:00 Intake Total 3000 ml 520 ml Output Total 800 ml 2500 ml Balance 2200 ml -1980 ml Intake Oral 520 ml Other 3000 ml Output Urine Total 200 ml 2500 ml Estimated Blood Loss 600 ml Result Diagram: 02/17/1715 02/17/1715 Imaging Last Impressions Hip X-Ray 02/16/17 1226 Signed Impressions: Service Date/Time: Thursday, February 16, 2017 13:24 - CONCLUSION: Left hip arthroplasty. Tim Nava MD Objective Remarks GENERAL: This is a well-nourished, well-developed patient, in no apparent distress. CARDIOVASCULAR: Regular rate and regular rhythm without murmurs, gallops, or rubs. RESPIRATORY: Clear to auscultation. Breath sounds equal bilaterally. No wheezes , rales, or rhonchi. GASTROINTESTINAL: Abdomen soft, non-tender, nondistended. Normal, active bowel sounds MUSCULOSKELETAL: Extremities without clubbing, cyanosis, or edema. NEURO: Alert & Oriented x4 to person, place, time, situation. Moves all ext x4 Medications and IVs Current Medications Lactated Ringer's 1,000 ml @ 30 mls/hr Q24H PRN IV SEE LABEL COMMENTS Last administered on 02/16/17 06:15; Start 02/16/17 at 06:00; Stop 02/19/17 at 05:59 Sodium Chloride 500 ml @ 30 mls/hr [id number] PRN IV SEE LABEL COMMENTS; Start at 06:00; Stop 02/19/17 at 05:59 Metoprolol Tartrate (Lopressor) 25 mg ELECTRICAL PANEL BUILDER PRN PO SEE LABEL COMMENTS; Start 02/16/17 at 06:00; Stop 02/19/17 at 05:59 Povidone Iodine (Betadine 5% Antisepsis Kit) 1 applic ELECTRICAL PANEL BUILDER PRN EACH NARE SEE LABEL COMMENTS Last administered on 02/16/17 06:05; Start 02/16/17 at 06:00 ; Stop 02/19/17 at 05:59 Chlorhexidine Gluconate (Chlorhexidine 2% Cloth) 3 pack ELECTRICAL PANEL BUILDER PRN TOPICAL SEE LABEL COMMENTS Last administered on 02/16/17 06:00; Start 02/16/17 at 06:00 ; Stop 02/19/17 at 05:59 Insulin Human Regular (NovoLIN R INJ) See Protocol Table ... ELECTRICAL PANEL BUILDER PRN SQ SEE PROTOCOL TABLE; Start 02/16/17 at 06:00; Stop 02/19/17 at 05:59 Cefazolin Sodium/ Dextrose 50 ml @ 100 mls/hr ELECTRICAL PANEL BUILDER IV Last administered on 02/16/17 07:07; Start 02/16/17 at 06:15; Stop 02/19/17 at 06:14 Vancomycin HCl 1500 mg/Sodium Chloride 515 ml @ 257.5 mls/ hr ELECTRICAL PANEL BUILDER IV Last administered on 02/16/17 07:11; Start 02/16/17 at 06:15; Stop 02/19/17 at 06:14 Tranexamic Acid 1360 mg/Sodium Chloride 113.6 ml @ 200 mls/hr ONCE IV Last administered on 02/16/17 12:27; Start 02/16/17 at 06:15; Stop 02/16/17 at 17:00 ; Status DC Tranexamic Acid 1360 mg/Sodium Chloride 113.6 ml @ 200 mls/hr ONCE IV Last administered on 02/16/17 13:06; Start 02/16/17 at 06:15; Stop 02/16/17 at 17:00 ; Status DC Bupivacaine Liposome 20 ml/ Sodium Chloride 60 ml @ 120 mls/hr ONCE P-ARTICULR Last administered on 02/16/17 12:41; Start 02/16/17 at 06:15; Stop 02/16/17 at 16:00; Status DC Acetaminophen 100 ml @ As Directed STK-MED ONCE IV ; Start 02/16/17 at 07:01; Stop 02/16/17 at 07:02; Status DC Famotidine (Pepcid Inj) 20 mg STK-MED ONCE .ROUTE ; Start 02/16/17 at 07:01; Stop 02/16/17 at 07:02; Status DC Gentamicin Sulfate (Gentamicin Inj) 160 mg STK-MED ONCE .ROUTE Last administered on 02/16/17 09:00; Start 02/16/17 at 07:09; Stop 02/16/17 at 07:10 ; Status DC Gentamicin Sulfate (Gentamicin Inj) 80 mg STK-MED ONCE .ROUTE ; Start 02/16/17 at 07:09; Stop 02/16/17 at 07:10; Status DC Bupivacaine HCl (Marcaine Pf 0.25% Inj) 30 ml STK-MED ONCE .ROUTE ; Start at 08:26; Stop 02/16/17 at 08:27; Status DC Bupivacaine HCl (Marcaine Pf 0.5% Inj) 30 ml STK-MED ONCE .ROUTE Last administered on 02/16/17 12:25; Start 02/16/17 at 08:26; Stop 02/16/17 at 08:27 ; Status DC Dexamethasone Sodium Phosphate (Decadron Inj) 4 mg STK-MED ONCE .ROUTE Last administered on 02/16/17 12:25; Start 02/16/17 at 08:26; Stop 02/16/17 at 08:27 ; Status DC Methylprednisolone Acetate (Depo-Medrol Inj) 40 mg STK-MED ONCE .ROUTE Last administered on 02/16/17 12:25; Start 02/16/17 at 08:27; Stop 02/16/17 at 08:28 ; Status DC Tranexamic Acid 1000 mg/Sodium Chloride 110 ml @ 0 mls/hr ONCE ONCE IV ; Start 02/16/17 at 12:27; Stop 02/16/17 at 12:28; Status UNV IV Flush (NS Flush) 2 ml UNSCH PRN IVF FLUSH AFTER USING IV ACCESS; Start 02/16 at 12:30 IV Flush (NS Flush) 2 ml BID IVF ; Start 02/16/17 at 21:00 Cefazolin Sodium/ Dextrose 50 ml @ 100 mls/hr Q6H IV Last administered on 02/17 03:52; Start 02/16/17 at 16:00; Stop 02/17/17 at 04:29; Status DC Vancomycin HCl 1500 mg/Sodium Chloride 515 ml @ 257.5 mls/ hr Q12H IV Last administered on 02/16/17 23:16; Start 02/16/17 at 23:00; Stop 02/17/17 at 00:59 ; Status DC Miscellaneous Information (Post-op Orders (for Pharmacy)) STAT ONCE XX ; Start 02/16/17 at 13:00; Stop 02/16/17 at 15:07; Status DC Enoxaparin Sodium (Lovenox Inj) 40 mg Q24H SQ ; Start 02/17/17 at 12:00 Acetaminophen/ Hydrocodone Bitart ([place] 5-325 Mg) 2 tab Q6H PRN PO PAIN SCALE 5 TO 10; Start 02/16/17 at 12:30 Tramadol HCl (Ultram) 100 mg Q6H PRN PO PAIN LESS THAN 5 ON SCALE; Start at 12:30 Ketorolac Tromethamine (Toradol Inj) 30 mg Q8H IVP Last administered on 09:29; Start 02/16/17 at 16:00; Stop 02/19/17 at 00:01 Tranexamic Acid 1360 mg/Sodium Chloride 113.6 ml @ 200 mls/hr UNSCH IV Last administered on 02/16/17 14:04; Start 02/16/17 at 14:00; Stop 02/16/17 at 20:00 ; Status DC Ondansetron HCl (Zofran Inj) 4 mg Q6H PRN IVP NAUSEA OR VOMITING; Start at 12:30 Docusate Sodium (Colace) 100 mg BID PO ; Start 02/17/17 at 21:00 Temazepam (Restoril) 15 mg HS PRN PO SLEEP; Start 02/16/17 at 12:30 Naloxone HCl (Narcan Inj) 0.4 mg UNSCH PRN IV PUSH RESPIRATORY RATE LESS THAN 10; Start 02/16/17 at 12:30 Diphenhydramine HCl (Benadryl Inj) 25 mg Q6H PRN IV PUSH ITCHING; Start at 12:30 Morphine Sulfate (Morphine 1 Mg/ ml LAWN SPRINKLER INSTALLER) 30 mg UNSCH IV Last administered on 13:55; Start 02/16/17 at 12:30; Stop 02/17/17 at 10:00; Status DC LAWN SPRINKLER INSTALLER Dosage Infused (Pha) 1 Q8HR .XX Last administered on 02/17/17 05:23; Start 02/16/17 at 14:00; Stop 02/17/17 at 10:00; Status DC Acetaminophen (Ofirmev 1000 Mg/ 100 ml Inj) 1,000 mg Q12HR IV Last administered on 02/16/17 18:04; Start 02/16/17 at 14:00; Stop 02/16/17 at 19:00 ; Status DC Dextrose/Sodium Chloride 1,000 ml @ 125 mls/hr Q8H IV Last administered on 03:55; Start 02/16/17 at 15:00 Acetaminophen (Ofirmev 1000 Mg/ 100 ml Inj) 1,000 mg Q12H IV Last administered on 02/17/17 05:07; Start 02/17/17 at 06:00 Miscellaneous Information ALL NURSING DEPARTME... UNSCH PRN .XX SEE LABEL COMMENTS; Start 02/16/17 at 12:50; Stop 02/17/17 at 12:49 Morphine Sulfate (*morphine INJ PERIprocedure ONLY) 8 mg STK-MED ONCE .ROUTE Last administered on 02/16/17 13:30; Start 02/16/17 at 14:01; Stop 02/16/17 at 14:02; Status DC Pneumococcal Polyvalent Vaccine (Pneumovax-23 Inj) 25 mcg ONCE ONCE IM Last administered on 02/17/17 09:40; Start 02/17/17 at 10:00; Stop 02/17/17 at 10:01 ; Status DC Influenza Virus Vaccine (Flu (Quadrivalent) Vaccine Inj) 0.5 ml ONCE ONCE IM Last administered on 02/17/17 09:21; Start 02/17/17 at 10:00; Stop 02/17/17 at 10:01; Status DC Celecoxib (CeleBREX) 200 mg DAILY PO Last administered on 02/17/17 09:28; Start 02/17/17 at 09:00 A/P Assessment and Plan A/P - s/p left hip arthroplasty and right knee arthrocentesis and steroid injection continue pain control and rehab efforts. management per ortho. -post-op anemia; will monitor H/H. -DVT with subq lovenox as per Orthopedic Surgery. Alicia Rodriges MD Feb 17, 2017 11:51
--- NOTE | 2017-02-17 11:51 | HHI.PR ---
Subjective Remarks resting comfortably with no distress. pain is controlled. no new complaints. Objective Vitals Vital Signs Date Time Temp Pulse Resp B/P (MAP) Pulse Ox O2 Delivery O2 Flow Rate FiO2 02/17/17 09:22 Nasal Cannula 2.00 02/17/17 08:00 97.8 112 18 120/82 (95) 99 02/17/17 05:49 98.4 98 18 151/93 (112) 100 02/17/17 05:23 18 02/17/17 00:48 98.5 90 20 111/92 (98) 96 02/16/17 22:33 17 02/16/17 20:54 97.9 92 20 144/85 (104) 99 02/16/17 20:01 Nasal Cannula 3.00 02/16/17 15:50 Nasal Cannula 2.00 02/16/17 14:42 96.5 89 17 134/87 (103) 97 02/16/17 14:30 82 13 134/80 (98) 98 Nasal Cannula 2 02/16/17 14:00 84 13 133/76 (95) 98 Nasal Cannula 2 02/16/17 13:55 16 02/16/17 13:45 84 16 109/58 (75) 98 Nasal Cannula 2 02/16/17 13:30 85 15 127/73 (91) 95 Nasal Cannula 2 02/16/17 13:15 79 16 125/77 (93) 92 Nasal Cannula 2 02/16/17 13:00 83 18 116/67 (83) 95 Nasal Cannula 2 02/16/17 12:48 97.8 87 16 133/85 (101) 94 Nasal Cannula 2 I/O 02/16/17 02/16/17 02/16/17 02/17/17 02/17/17 02/17/17 07:00 15:00 23:00 07:00 15:00 23:00 Intake Total 3000 ml 520 ml Output Total 800 ml 2500 ml Balance 2200 ml -1980 ml Intake Oral 520 ml Other 3000 ml Output Urine Total 200 ml 2500 ml Estimated Blood Loss 600 ml Result Diagram: 02/17/1715 02/17/1715 Imaging Last Impressions Hip X-Ray 02/16/17 1226 Signed Impressions: Service Date/Time: Thursday, February 16, 2017 13:24 - CONCLUSION: Left hip arthroplasty. Tim Nava MD Objective Remarks GENERAL: This is a well-nourished, well-developed patient, in no apparent distress. CARDIOVASCULAR: Regular rate and regular rhythm without murmurs, gallops, or rubs. RESPIRATORY: Clear to auscultation. Breath sounds equal bilaterally. No wheezes , rales, or rhonchi. GASTROINTESTINAL: Abdomen soft, non-tender, nondistended. Normal, active bowel sounds MUSCULOSKELETAL: Extremities without clubbing, cyanosis, or edema. NEURO: Alert & Oriented x4 to person, place, time, situation. Moves all ext x4 Medications and IVs Current Medications Lactated Ringer's 1,000 ml @ 30 mls/hr Q24H PRN IV SEE LABEL COMMENTS Last administered on 02/16/17 06:15; Start 02/16/17 at 06:00; Stop 02/19/17 at 05:59 Sodium Chloride 500 ml @ 30 mls/hr [id number] PRN IV SEE LABEL COMMENTS; Start at 06:00; Stop 02/19/17 at 05:59 Metoprolol Tartrate (Lopressor) 25 mg PRODUCT INFO SPECIALIST PRN PO SEE LABEL COMMENTS; Start 02/16/17 at 06:00; Stop 02/19/17 at 05:59 Povidone Iodine (Betadine 5% Antisepsis Kit) 1 applic PRODUCT INFO SPECIALIST PRN EACH NARE SEE LABEL COMMENTS Last administered on 02/16/17 06:05; Start 02/16/17 at 06:00 ; Stop 02/19/17 at 05:59 Chlorhexidine Gluconate (Chlorhexidine 2% Cloth) 3 pack PRODUCT INFO SPECIALIST PRN TOPICAL SEE LABEL COMMENTS Last administered on 02/16/17 06:00; Start 02/16/17 at 06:00 ; Stop 02/19/17 at 05:59 Insulin Human Regular (NovoLIN R INJ) See Protocol Table ... PRODUCT INFO SPECIALIST PRN SQ SEE PROTOCOL TABLE; Start 02/16/17 at 06:00; Stop 02/19/17 at 05:59 Cefazolin Sodium/ Dextrose 50 ml @ 100 mls/hr PRODUCT INFO SPECIALIST IV Last administered on 02/16/17 07:07; Start 02/16/17 at 06:15; Stop 02/19/17 at 06:14 Vancomycin HCl 1500 mg/Sodium Chloride 515 ml @ 257.5 mls/ hr PRODUCT INFO SPECIALIST IV Last administered on 02/16/17 07:11; Start 02/16/17 at 06:15; Stop 02/19/17 at 06:14 Tranexamic Acid 1360 mg/Sodium Chloride 113.6 ml @ 200 mls/hr ONCE IV Last administered on 02/16/17 12:27; Start 02/16/17 at 06:15; Stop 02/16/17 at 17:00 ; Status DC Tranexamic Acid 1360 mg/Sodium Chloride 113.6 ml @ 200 mls/hr ONCE IV Last administered on 02/16/17 13:06; Start 02/16/17 at 06:15; Stop 02/16/17 at 17:00 ; Status DC Bupivacaine Liposome 20 ml/ Sodium Chloride 60 ml @ 120 mls/hr ONCE P-ARTICULR Last administered on 02/16/17 12:41; Start 02/16/17 at 06:15; Stop 02/16/17 at 16:00; Status DC Acetaminophen 100 ml @ As Directed STK-MED ONCE IV ; Start 02/16/17 at 07:01; Stop 02/16/17 at 07:02; Status DC Famotidine (Pepcid Inj) 20 mg STK-MED ONCE .ROUTE ; Start 02/16/17 at 07:01; Stop 02/16/17 at 07:02; Status DC Gentamicin Sulfate (Gentamicin Inj) 160 mg STK-MED ONCE .ROUTE Last administered on 02/16/17 09:00; Start 02/16/17 at 07:09; Stop 02/16/17 at 07:10 ; Status DC Gentamicin Sulfate (Gentamicin Inj) 80 mg STK-MED ONCE .ROUTE ; Start 02/16/17 at 07:09; Stop 02/16/17 at 07:10; Status DC Bupivacaine HCl (Marcaine Pf 0.25% Inj) 30 ml STK-MED ONCE .ROUTE ; Start at 08:26; Stop 02/16/17 at 08:27; Status DC Bupivacaine HCl (Marcaine Pf 0.5% Inj) 30 ml STK-MED ONCE .ROUTE Last administered on 02/16/17 12:25; Start 02/16/17 at 08:26; Stop 02/16/17 at 08:27 ; Status DC Dexamethasone Sodium Phosphate (Decadron Inj) 4 mg STK-MED ONCE .ROUTE Last administered on 02/16/17 12:25; Start 02/16/17 at 08:26; Stop 02/16/17 at 08:27 ; Status DC Methylprednisolone Acetate (Depo-Medrol Inj) 40 mg STK-MED ONCE .ROUTE Last administered on 02/16/17 12:25; Start 02/16/17 at 08:27; Stop 02/16/17 at 08:28 ; Status DC Tranexamic Acid 1000 mg/Sodium Chloride 110 ml @ 0 mls/hr ONCE ONCE IV ; Start 02/16/17 at 12:27; Stop 02/16/17 at 12:28; Status UNV IV Flush (NS Flush) 2 ml UNSCH PRN IVF FLUSH AFTER USING IV ACCESS; Start 02/16 at 12:30 IV Flush (NS Flush) 2 ml BID IVF ; Start 02/16/17 at 21:00 Cefazolin Sodium/ Dextrose 50 ml @ 100 mls/hr Q6H IV Last administered on 02/17 03:52; Start 02/16/17 at 16:00; Stop 02/17/17 at 04:29; Status DC Vancomycin HCl 1500 mg/Sodium Chloride 515 ml @ 257.5 mls/ hr Q12H IV Last administered on 02/16/17 23:16; Start 02/16/17 at 23:00; Stop 02/17/17 at 00:59 ; Status DC Miscellaneous Information (Post-op Orders (for Pharmacy)) STAT ONCE XX ; Start 02/16/17 at 13:00; Stop 02/16/17 at 15:07; Status DC Enoxaparin Sodium (Lovenox Inj) 40 mg Q24H SQ ; Start 02/17/17 at 12:00 Acetaminophen/ Hydrocodone Bitart ([place] 5-325 Mg) 2 tab Q6H PRN PO PAIN SCALE 5 TO 10; Start 02/16/17 at 12:30 Tramadol HCl (Ultram) 100 mg Q6H PRN PO PAIN LESS THAN 5 ON SCALE; Start at 12:30 Ketorolac Tromethamine (Toradol Inj) 30 mg Q8H IVP Last administered on 09:29; Start 02/16/17 at 16:00; Stop 02/19/17 at 00:01 Tranexamic Acid 1360 mg/Sodium Chloride 113.6 ml @ 200 mls/hr UNSCH IV Last administered on 02/16/17 14:04; Start 02/16/17 at 14:00; Stop 02/16/17 at 20:00 ; Status DC Ondansetron HCl (Zofran Inj) 4 mg Q6H PRN IVP NAUSEA OR VOMITING; Start at 12:30 Docusate Sodium (Colace) 100 mg BID PO ; Start 02/17/17 at 21:00 Temazepam (Restoril) 15 mg HS PRN PO SLEEP; Start 02/16/17 at 12:30 Naloxone HCl (Narcan Inj) 0.4 mg UNSCH PRN IV PUSH RESPIRATORY RATE LESS THAN 10; Start 02/16/17 at 12:30 Diphenhydramine HCl (Benadryl Inj) 25 mg Q6H PRN IV PUSH ITCHING; Start at 12:30 Morphine Sulfate (Morphine 1 Mg/ ml SENIOR ENGINEER) 30 mg UNSCH IV Last administered on 13:55; Start 02/16/17 at 12:30; Stop 02/17/17 at 10:00; Status DC SENIOR ENGINEER Dosage Infused (Pha) 1 Q8HR .XX Last administered on 02/17/17 05:23; Start 02/16/17 at 14:00; Stop 02/17/17 at 10:00; Status DC Acetaminophen (Ofirmev 1000 Mg/ 100 ml Inj) 1,000 mg Q12HR IV Last administered on 02/16/17 18:04; Start 02/16/17 at 14:00; Stop 02/16/17 at 19:00 ; Status DC Dextrose/Sodium Chloride 1,000 ml @ 125 mls/hr Q8H IV Last administered on 03:55; Start 02/16/17 at 15:00 Acetaminophen (Ofirmev 1000 Mg/ 100 ml Inj) 1,000 mg Q12H IV Last administered on 02/17/17 05:07; Start 02/17/17 at 06:00 Miscellaneous Information ALL NURSING DEPARTME... UNSCH PRN .XX SEE LABEL COMMENTS; Start 02/16/17 at 12:50; Stop 02/17/17 at 12:49 Morphine Sulfate (*morphine INJ PERIprocedure ONLY) 8 mg STK-MED ONCE .ROUTE Last administered on 02/16/17 13:30; Start 02/16/17 at 14:01; Stop 02/16/17 at 14:02; Status DC Pneumococcal Polyvalent Vaccine (Pneumovax-23 Inj) 25 mcg ONCE ONCE IM Last administered on 02/17/17 09:40; Start 02/17/17 at 10:00; Stop 02/17/17 at 10:01 ; Status DC Influenza Virus Vaccine (Flu (Quadrivalent) Vaccine Inj) 0.5 ml ONCE ONCE IM Last administered on 02/17/17 09:21; Start 02/17/17 at 10:00; Stop 02/17/17 at 10:01; Status DC Celecoxib (CeleBREX) 200 mg DAILY PO Last administered on 02/17/17 09:28; Start 02/17/17 at 09:00 A/P Assessment and Plan A/P - s/p left hip arthroplasty and right knee arthrocentesis and steroid injection continue pain control and rehab efforts. management per ortho. -post-op anemia; will monitor H/H. -DVT with subq lovenox as per Orthopedic Surgery. Alicia Rodriges MD Feb 17, 2017 11:51
--- NOTE | 2017-02-17 11:51 | HHI.PR ---
Subjective Remarks resting comfortably with no distress. pain is controlled. no new complaints. Objective Vitals Vital Signs Date Time Temp Pulse Resp B/P (MAP) Pulse Ox O2 Delivery O2 Flow Rate FiO2 02/17/17 09:22 Nasal Cannula 2.00 02/17/17 08:00 97.8 112 18 120/82 (95) 99 02/17/17 05:49 98.4 98 18 151/93 (112) 100 02/17/17 05:23 18 02/17/17 00:48 98.5 90 20 111/92 (98) 96 02/16/17 22:33 17 02/16/17 20:54 97.9 92 20 144/85 (104) 99 02/16/17 20:01 Nasal Cannula 3.00 02/16/17 15:50 Nasal Cannula 2.00 02/16/17 14:42 96.5 89 17 134/87 (103) 97 02/16/17 14:30 82 13 134/80 (98) 98 Nasal Cannula 2 02/16/17 14:00 84 13 133/76 (95) 98 Nasal Cannula 2 02/16/17 13:55 16 02/16/17 13:45 84 16 109/58 (75) 98 Nasal Cannula 2 02/16/17 13:30 85 15 127/73 (91) 95 Nasal Cannula 2 02/16/17 13:15 79 16 125/77 (93) 92 Nasal Cannula 2 02/16/17 13:00 83 18 116/67 (83) 95 Nasal Cannula 2 02/16/17 12:48 97.8 87 16 133/85 (101) 94 Nasal Cannula 2 I/O 02/16/17 02/16/17 02/16/17 02/17/17 02/17/17 02/17/17 07:00 15:00 23:00 07:00 15:00 23:00 Intake Total 3000 ml 520 ml Output Total 800 ml 2500 ml Balance 2200 ml -1980 ml Intake Oral 520 ml Other 3000 ml Output Urine Total 200 ml 2500 ml Estimated Blood Loss 600 ml Result Diagram: 02/17/1715 02/17/1715 Imaging Last Impressions Hip X-Ray 02/16/17 1226 Signed Impressions: Service Date/Time: Thursday, February 16, 2017 13:24 - CONCLUSION: Left hip arthroplasty. Tim Nava MD Objective Remarks GENERAL: This is a well-nourished, well-developed patient, in no apparent distress. CARDIOVASCULAR: Regular rate and regular rhythm without murmurs, gallops, or rubs. RESPIRATORY: Clear to auscultation. Breath sounds equal bilaterally. No wheezes , rales, or rhonchi. GASTROINTESTINAL: Abdomen soft, non-tender, nondistended. Normal, active bowel sounds MUSCULOSKELETAL: Extremities without clubbing, cyanosis, or edema. NEURO: Alert & Oriented x4 to person, place, time, situation. Moves all ext x4 Medications and IVs Current Medications Lactated Ringer's 1,000 ml @ 30 mls/hr Q24H PRN IV SEE LABEL COMMENTS Last administered on 02/16/17 06:15; Start 02/16/17 at 06:00; Stop 02/19/17 at 05:59 Sodium Chloride 500 ml @ 30 mls/hr [id number] PRN IV SEE LABEL COMMENTS; Start at 06:00; Stop 02/19/17 at 05:59 Metoprolol Tartrate (Lopressor) 25 mg CRUTCH MAKER PRN PO SEE LABEL COMMENTS; Start 02/16/17 at 06:00; Stop 02/19/17 at 05:59 Povidone Iodine (Betadine 5% Antisepsis Kit) 1 applic CRUTCH MAKER PRN EACH NARE SEE LABEL COMMENTS Last administered on 02/16/17 06:05; Start 02/16/17 at 06:00 ; Stop 02/19/17 at 05:59 Chlorhexidine Gluconate (Chlorhexidine 2% Cloth) 3 pack CRUTCH MAKER PRN TOPICAL SEE LABEL COMMENTS Last administered on 02/16/17 06:00; Start 02/16/17 at 06:00 ; Stop 02/19/17 at 05:59 Insulin Human Regular (NovoLIN R INJ) See Protocol Table ... CRUTCH MAKER PRN SQ SEE PROTOCOL TABLE; Start 02/16/17 at 06:00; Stop 02/19/17 at 05:59 Cefazolin Sodium/ Dextrose 50 ml @ 100 mls/hr CRUTCH MAKER IV Last administered on 02/16/17 07:07; Start 02/16/17 at 06:15; Stop 02/19/17 at 06:14 Vancomycin HCl 1500 mg/Sodium Chloride 515 ml @ 257.5 mls/ hr CRUTCH MAKER IV Last administered on 02/16/17 07:11; Start 02/16/17 at 06:15; Stop 02/19/17 at 06:14 Tranexamic Acid 1360 mg/Sodium Chloride 113.6 ml @ 200 mls/hr ONCE IV Last administered on 02/16/17 12:27; Start 02/16/17 at 06:15; Stop 02/16/17 at 17:00 ; Status DC Tranexamic Acid 1360 mg/Sodium Chloride 113.6 ml @ 200 mls/hr ONCE IV Last administered on 02/16/17 13:06; Start 02/16/17 at 06:15; Stop 02/16/17 at 17:00 ; Status DC Bupivacaine Liposome 20 ml/ Sodium Chloride 60 ml @ 120 mls/hr ONCE P-ARTICULR Last administered on 02/16/17 12:41; Start 02/16/17 at 06:15; Stop 02/16/17 at 16:00; Status DC Acetaminophen 100 ml @ As Directed STK-MED ONCE IV ; Start 02/16/17 at 07:01; Stop 02/16/17 at 07:02; Status DC Famotidine (Pepcid Inj) 20 mg STK-MED ONCE .ROUTE ; Start 02/16/17 at 07:01; Stop 02/16/17 at 07:02; Status DC Gentamicin Sulfate (Gentamicin Inj) 160 mg STK-MED ONCE .ROUTE Last administered on 02/16/17 09:00; Start 02/16/17 at 07:09; Stop 02/16/17 at 07:10 ; Status DC Gentamicin Sulfate (Gentamicin Inj) 80 mg STK-MED ONCE .ROUTE ; Start 02/16/17 at 07:09; Stop 02/16/17 at 07:10; Status DC Bupivacaine HCl (Marcaine Pf 0.25% Inj) 30 ml STK-MED ONCE .ROUTE ; Start at 08:26; Stop 02/16/17 at 08:27; Status DC Bupivacaine HCl (Marcaine Pf 0.5% Inj) 30 ml STK-MED ONCE .ROUTE Last administered on 02/16/17 12:25; Start 02/16/17 at 08:26; Stop 02/16/17 at 08:27 ; Status DC Dexamethasone Sodium Phosphate (Decadron Inj) 4 mg STK-MED ONCE .ROUTE Last administered on 02/16/17 12:25; Start 02/16/17 at 08:26; Stop 02/16/17 at 08:27 ; Status DC Methylprednisolone Acetate (Depo-Medrol Inj) 40 mg STK-MED ONCE .ROUTE Last administered on 02/16/17 12:25; Start 02/16/17 at 08:27; Stop 02/16/17 at 08:28 ; Status DC Tranexamic Acid 1000 mg/Sodium Chloride 110 ml @ 0 mls/hr ONCE ONCE IV ; Start 02/16/17 at 12:27; Stop 02/16/17 at 12:28; Status UNV IV Flush (NS Flush) 2 ml UNSCH PRN IVF FLUSH AFTER USING IV ACCESS; Start 02/16 at 12:30 IV Flush (NS Flush) 2 ml BID IVF ; Start 02/16/17 at 21:00 Cefazolin Sodium/ Dextrose 50 ml @ 100 mls/hr Q6H IV Last administered on 02/17 03:52; Start 02/16/17 at 16:00; Stop 02/17/17 at 04:29; Status DC Vancomycin HCl 1500 mg/Sodium Chloride 515 ml @ 257.5 mls/ hr Q12H IV Last administered on 02/16/17 23:16; Start 02/16/17 at 23:00; Stop 02/17/17 at 00:59 ; Status DC Miscellaneous Information (Post-op Orders (for Pharmacy)) STAT ONCE XX ; Start 02/16/17 at 13:00; Stop 02/16/17 at 15:07; Status DC Enoxaparin Sodium (Lovenox Inj) 40 mg Q24H SQ ; Start 02/17/17 at 12:00 Acetaminophen/ Hydrocodone Bitart ([place] 5-325 Mg) 2 tab Q6H PRN PO PAIN SCALE 5 TO 10; Start 02/16/17 at 12:30 Tramadol HCl (Ultram) 100 mg Q6H PRN PO PAIN LESS THAN 5 ON SCALE; Start at 12:30 Ketorolac Tromethamine (Toradol Inj) 30 mg Q8H IVP Last administered on 09:29; Start 02/16/17 at 16:00; Stop 02/19/17 at 00:01 Tranexamic Acid 1360 mg/Sodium Chloride 113.6 ml @ 200 mls/hr UNSCH IV Last administered on 02/16/17 14:04; Start 02/16/17 at 14:00; Stop 02/16/17 at 20:00 ; Status DC Ondansetron HCl (Zofran Inj) 4 mg Q6H PRN IVP NAUSEA OR VOMITING; Start at 12:30 Docusate Sodium (Colace) 100 mg BID PO ; Start 02/17/17 at 21:00 Temazepam (Restoril) 15 mg HS PRN PO SLEEP; Start 02/16/17 at 12:30 Naloxone HCl (Narcan Inj) 0.4 mg UNSCH PRN IV PUSH RESPIRATORY RATE LESS THAN 10; Start 02/16/17 at 12:30 Diphenhydramine HCl (Benadryl Inj) 25 mg Q6H PRN IV PUSH ITCHING; Start at 12:30 Morphine Sulfate (Morphine 1 Mg/ ml COMPUTER METEOROLOGIST) 30 mg UNSCH IV Last administered on 13:55; Start 02/16/17 at 12:30; Stop 02/17/17 at 10:00; Status DC COMPUTER METEOROLOGIST Dosage Infused (Pha) 1 Q8HR .XX Last administered on 02/17/17 05:23; Start 02/16/17 at 14:00; Stop 02/17/17 at 10:00; Status DC Acetaminophen (Ofirmev 1000 Mg/ 100 ml Inj) 1,000 mg Q12HR IV Last administered on 02/16/17 18:04; Start 02/16/17 at 14:00; Stop 02/16/17 at 19:00 ; Status DC Dextrose/Sodium Chloride 1,000 ml @ 125 mls/hr Q8H IV Last administered on 03:55; Start 02/16/17 at 15:00 Acetaminophen (Ofirmev 1000 Mg/ 100 ml Inj) 1,000 mg Q12H IV Last administered on 02/17/17 05:07; Start 02/17/17 at 06:00 Miscellaneous Information ALL NURSING DEPARTME... UNSCH PRN .XX SEE LABEL COMMENTS; Start 02/16/17 at 12:50; Stop 02/17/17 at 12:49 Morphine Sulfate (*morphine INJ PERIprocedure ONLY) 8 mg STK-MED ONCE .ROUTE Last administered on 02/16/17 13:30; Start 02/16/17 at 14:01; Stop 02/16/17 at 14:02; Status DC Pneumococcal Polyvalent Vaccine (Pneumovax-23 Inj) 25 mcg ONCE ONCE IM Last administered on 02/17/17 09:40; Start 02/17/17 at 10:00; Stop 02/17/17 at 10:01 ; Status DC Influenza Virus Vaccine (Flu (Quadrivalent) Vaccine Inj) 0.5 ml ONCE ONCE IM Last administered on 02/17/17 09:21; Start 02/17/17 at 10:00; Stop 02/17/17 at 10:01; Status DC Celecoxib (CeleBREX) 200 mg DAILY PO Last administered on 02/17/17 09:28; Start 02/17/17 at 09:00 A/P Assessment and Plan A/P - s/p left hip arthroplasty and right knee arthrocentesis and steroid injection continue pain control and rehab efforts. management per ortho. -post-op anemia; will monitor H/H. -DVT with subq lovenox as per Orthopedic Surgery. Alicia Rodriges MD Feb 17, 2017 11:51
[2017-02-17] MEDS: ENOXAPARIN SODIUM 40 MG/0.4 ML SYRINGE SQ SCH (12:01)
[2017-02-17] MEDS: traMADol HCL 50 MG TAB PO PRN ×2 (13:02→19:59)
[2017-02-17] MEDS: DOCUSATE SODIUM 100 MG CAP PO SCH (19:59)
[2017-02-18] VITALS: BP 135/81; PULSE 97; RESP 19; TEMP 97.6; O2SAT 98
[2017-02-18] MEDS ORDERED: BISACODYL 10 MG SUPP RECTAL PRN (02:15)
[2017-02-18] MEDS ORDERED: MAGNESIUM HYDROXIDE SUSP 30 ML CUP PO PRN (02:15)
[2017-02-18] MEDS ORDERED: LACTULOSE SYRUP 20 GM/30 ML CUP PO PRN (02:15)
[2017-02-18] MEDS: DEXT 5%-NACL 0.9% 1000 ML INJ 1,000 ML IV SCH ×2 (03:22→15:00)
[2017-02-18] MEDS: traMADol HCL 50 MG TAB PO PRN ×2 (03:27→09:05)
[2017-02-18] MEDS: ACETAMINOPHEN 1000 MG/100 ML VIAL IV SCH (06:08)
[2017-02-18 07:39] LABS: BICARBONATE 26.9 MEQ/L (21.0-32.0); CALCIUM 8.4 MG/DL (8.5-10.1); CREATININE 1.17 MG/DL (0.60-1.30)
[2017-02-18 08:00] VITALS: BP 122/69; PULSE 98; RESP 19; TEMP 98.7; O2SAT 99
[2017-02-18] MEDS: SODIUM CHLORIDE 0.9% FLUSH 5 ML FLUSH IVF SCH (09:00)
[2017-02-18] MEDS: CELECOXIB 200 MG CAP PO SCH (09:05)
[2017-02-18] MEDS: KETOROLAC TROMETHAMINE 30 MG/ML (IVP) VIAL IVP SCH ×2 (09:05→15:23)
[2017-02-18] MEDS: DOCUSATE SODIUM 100 MG CAP PO SCH (09:10)
[2017-02-18 09:43] VITALS: O2SAT 97
[2017-02-18 12:00] VITALS: BP 133/87; PULSE 100; RESP 19; TEMP 97.7; O2SAT 97
--- NOTE | 2017-02-18 12:05 | HHI.PR ---
Subjective Remarks in no distress. pain is controlled. no fever. Objective Vitals Vital Signs Date Time Temp Pulse Resp B/P (MAP) Pulse Ox O2 Delivery O2 Flow Rate FiO2 02/18/17 09:43 97 Nasal Cannula 3.00 02/18/17 08:00 98.7 98 19 122/69 (86) 99 02/18/17 00:00 97.6 97 19 135/81 (99) 98 02/17/17 20:00 97.5 99 16 135/79 (97) 97 02/17/17 19:46 97 Nasal Cannula 3.00 02/17/17 16:00 97.4 107 16 149/89 (109) 96 I/O 02/17/17 02/17/17 02/17/17 02/18/17 02/18/17 02/18/17 07:00 15:00 23:00 07:00 15:00 23:00 Intake Total 520 ml 1560 ml 480 ml Output Total 2500 ml 600 ml 650 ml Balance -1980 ml 960 ml -170 ml Intake Oral 520 ml 1560 ml 480 ml Output Urine Total 2500 ml 600 ml 650 ml # Voids 3 # Bowel Movements 0 Result Diagram: 02/17/17 0615 02/18/17 0621 Imaging Last Impressions Hip X-Ray 02/16/17 1226 Signed Impressions: Service Date/Time: Thursday, February 16, 2017 13:24 - CONCLUSION: Left hip arthroplasty. Tim Nava MD Objective Remarks GENERAL: This is a well-nourished, well-developed patient, in no apparent distress. CARDIOVASCULAR: Regular rate and regular rhythm without murmurs, gallops, or rubs. RESPIRATORY: Clear to auscultation. Breath sounds equal bilaterally. No wheezes , rales, or rhonchi. GASTROINTESTINAL: Abdomen soft, non-tender, nondistended. Normal, active bowel sounds MUSCULOSKELETAL: Extremities without clubbing, cyanosis, or edema. NEURO: Alert & Oriented x4 to person, place, time, situation. Moves all ext x4 Medications and IVs Current Medications Lactated Ringer's 1,000 ml @ 30 mls/hr Q24H PRN IV SEE LABEL COMMENTS Last administered on 02/16/17t 06:15; Start 02/16/17 at 06:00; Stop 02/19/17 at 05:59 Sodium Chloride 500 ml @ 30 mls/hr [id number] PRN IV SEE LABEL COMMENTS; Start at 06:00; Stop 02/19/17 at 05:59 Metoprolol Tartrate (Lopressor) 25 mg AMPHIBIAN CREWMEMBER PRN PO SEE LABEL COMMENTS; Start 02/16/17 at 06:00; Stop 02/19/17 at 05:59 Povidone Iodine (Betadine 5% Antisepsis Kit) 1 applic AMPHIBIAN CREWMEMBER PRN EACH NARE SEE LABEL COMMENTS Last administered on 02/16/17 06:05; Start 02/16/17 at 06:00 ; Stop 02/19/17 at 05:59 Chlorhexidine Gluconate (Chlorhexidine 2% Cloth) 3 pack AMPHIBIAN CREWMEMBER PRN TOPICAL SEE LABEL COMMENTS Last administered on 02/16/17 06:00; Start 02/16/17 at 06:00 ; Stop 02/19/17 at 05:59 Insulin Human Regular (NovoLIN R INJ) See Protocol Table ... AMPHIBIAN CREWMEMBER PRN SQ SEE PROTOCOL TABLE; Start 02/16/17 at 06:00; Stop 02/19/17 at 05:59 Cefazolin Sodium/ Dextrose 50 ml @ 100 mls/hr AMPHIBIAN CREWMEMBER IV Last administered on 02/16/17 07:07; Start 02/16/17 at 06:15; Stop 02/19/17 at 06:14 Vancomycin HCl 1500 mg/Sodium Chloride 515 ml @ 257.5 mls/ hr AMPHIBIAN CREWMEMBER IV Last administered on 02/16/17 07:11; Start 02/16/17 at 06:15; Stop 02/19/17 at 06:14 Tranexamic Acid 1360 mg/Sodium Chloride 113.6 ml @ 200 mls/hr ONCE IV Last administered on 02/16/17 12:27; Start 02/16/17 at 06:15; Stop 02/16/17 at 17:00 ; Status DC Tranexamic Acid 1360 mg/Sodium Chloride 113.6 ml @ 200 mls/hr ONCE IV Last administered on 02/16/17 13:06; Start 02/16/17 at 06:15; Stop 02/16/17 at 17:00 ; Status DC Bupivacaine Liposome 20 ml/ Sodium Chloride 60 ml @ 120 mls/hr ONCE P-ARTICULR Last administered on 02/16/17 12:41; Start 02/16/17 at 06:15; Stop 02/16/17 at 16:00; Status DC Acetaminophen 100 ml @ As Directed STK-MED ONCE IV ; Start 02/16/17 at 07:01; Stop 02/16/17 at 07:02; Status DC Famotidine (Pepcid Inj) 20 mg STK-MED ONCE .ROUTE ; Start 02/16/17 at 07:01; Stop 02/16/17 at 07:02; Status DC Gentamicin Sulfate (Gentamicin Inj) 160 mg STK-MED ONCE .ROUTE Last administered on 02/16/17 09:00; Start 02/16/17 at 07:09; Stop 02/16/17 at 07:10 ; Status DC Gentamicin Sulfate (Gentamicin Inj) 80 mg STK-MED ONCE .ROUTE ; Start 02/16/17 at 07:09; Stop 02/16/17 at 07:10; Status DC Bupivacaine HCl (Marcaine Pf 0.25% Inj) 30 ml STK-MED ONCE .ROUTE ; Start at 08:26; Stop 02/16/17 at 08:27; Status DC Bupivacaine HCl (Marcaine Pf 0.5% Inj) 30 ml STK-MED ONCE .ROUTE Last administered on 02/16/17 12:25; Start 02/16/17 at 08:26; Stop 02/16/17 at 08:27 ; Status DC Dexamethasone Sodium Phosphate (Decadron Inj) 4 mg STK-MED ONCE .ROUTE Last administered on 02/16/17 12:25; Start 02/16/17 at 08:26; Stop 02/16/17 at 08:27 ; Status DC Methylprednisolone Acetate (Depo-Medrol Inj) 40 mg STK-MED ONCE .ROUTE Last administered on 02/16/17 12:25; Start 02/16/17 at 08:27; Stop 02/16/17 at 08:28 ; Status DC Tranexamic Acid 1000 mg/Sodium Chloride 110 ml @ 0 mls/hr ONCE ONCE IV ; Start 02/16/17 at 12:27; Stop 02/16/17 at 12:28; Status UNV IV Flush (NS Flush) 2 ml UNSCH PRN IVF FLUSH AFTER USING IV ACCESS; Start 02/16 at 12:30 IV Flush (NS Flush) 2 ml BID IVF Last administered on 02/17/17 19:59; Start 02/16/17 at 21:00 Cefazolin Sodium/ Dextrose 50 ml @ 100 mls/hr Q6H IV Last administered on 02/17 03:52; Start 02/16/17 at 16:00; Stop 02/17/17 at 04:29; Status DC Vancomycin HCl 1500 mg/Sodium Chloride 515 ml @ 257.5 mls/ hr Q12H IV Last administered on 02/16/17 23:16; Start 02/16/17 at 23:00; Stop 02/17/17 at 00:59 ; Status DC Miscellaneous Information (Post-op Orders (for Pharmacy)) STAT ONCE XX ; Start 02/16/17 at 13:00; Stop 02/16/17 at 15:07; Status DC Enoxaparin Sodium (Lovenox Inj) 40 mg Q24H SQ Last administered on 02/17/17 12 :01; Start 02/17/17 at 12:00 Acetaminophen/ Hydrocodone Bitart ([place] 5-325 Mg) 2 tab Q6H PRN PO PAIN SCALE 5 TO 10; Start 02/16/17 at 12:30 Tramadol HCl (Ultram) 100 mg Q6H PRN PO PAIN LESS THAN 5 ON SCALE Last administered on 02/18/17 09:05; Start 02/16/17 at 12:30 Ketorolac Tromethamine (Toradol Inj) 30 mg Q8H IVP Last administered on 09:05; Start 02/16/17 at 16:00; Stop 02/19/17 at 00:01 Tranexamic Acid 1360 mg/Sodium Chloride 113.6 ml @ 200 mls/hr UNSCH IV Last administered on 02/16/17 14:04; Start 02/16/17 at 14:00; Stop 02/16/17 at 20:00 ; Status DC Ondansetron HCl (Zofran Inj) 4 mg Q6H PRN IVP NAUSEA OR VOMITING; Start at 12:30 Docusate Sodium (Colace) 100 mg BID PO Last administered on 02/18/17 09:10; Start 02/17/17 at 21:00 Temazepam (Restoril) 15 mg HS PRN PO SLEEP; Start 02/16/17 at 12:30 Naloxone HCl (Narcan Inj) 0.4 mg UNSCH PRN IV PUSH RESPIRATORY RATE LESS THAN 10; Start 02/16/17 at 12:30 Diphenhydramine HCl (Benadryl Inj) 25 mg Q6H PRN IV PUSH ITCHING; Start at 12:30 Morphine Sulfate (Morphine 1 Mg/ ml MUSEUM PREPARATOR) 30 mg UNSCH IV Last administered on 13:55; Start 02/16/17 at 12:30; Stop 02/17/17 at 10:00; Status DC MUSEUM PREPARATOR Dosage Infused (Pha) 1 Q8HR .XX Last administered on 02/17/17 05:23; Start 02/16/17 at 14:00; Stop 02/17/17 at 10:00; Status DC Acetaminophen (Ofirmev 1000 Mg/ 100 ml Inj) 1,000 mg Q12HR IV Last administered on 02/16/17 18:04; Start 02/16/17 at 14:00; Stop 02/16/17 at 19:00 ; Status DC Dextrose/Sodium Chloride 1,000 ml @ 125 mls/hr Q8H IV Last administered on 03:55; Start 02/16/17 at 15:00 Acetaminophen (Ofirmev 1000 Mg/ 100 ml Inj) 1,000 mg Q12H IV Last administered on 02/18/17 06:08; Start 02/17/17 at 06:00 Miscellaneous Information ALL NURSING DEPARTME... UNSCH PRN .XX SEE LABEL COMMENTS; Start 02/16/17 at 12:50; Stop 02/17/17 at 12:49; Status DC Morphine Sulfate (*morphine INJ PERIprocedure ONLY) 8 mg STK-MED ONCE .ROUTE Last administered on 02/16/17 13:30; Start 02/16/17 at 14:01; Stop 02/16/17 at 14:02; Status DC Pneumococcal Polyvalent Vaccine (Pneumovax-23 Inj) 25 mcg ONCE ONCE IM Last administered on 02/17/17 09:40; Start 02/17/17 at 10:00; Stop 02/17/17 at 10:01 ; Status DC Influenza Virus Vaccine (Flu (Quadrivalent) Vaccine Inj) 0.5 ml ONCE ONCE IM Last administered on 02/17/17 09:21; Start 02/17/17 at 10:00; Stop 02/17/17 at 10:01; Status DC Celecoxib (CeleBREX) 200 mg DAILY PO Last administered on 02/18/17 09:05; Start 02/17/17 at 09:00 Magnesium Hydroxide (Milk Of Magnesia Liq) 30 ml BID PRN PO MILD CONSTIPATION; Start 02/18/17 at 02:15 Lactulose (Lactulose Liq) 30 ml DAILY PRN PO SEVERE CONSITIPATION; Start at 02:15 Bisacodyl (Dulcolax Supp) 10 mg DAILY PRN RECTAL SEVERE CONSITIPATION; Start 02/18/17 at 02:15 A/P Assessment and Plan A/P - s/p left hip arthroplasty and right knee arthrocentesis and steroid injection continue pain control and rehab efforts. management per ortho. -post-op anemia; will monitor H/H. -DVT with subq lovenox as per Orthopedic Surgery. Alicia Rodriges MD Feb 18, 2017 12:05
--- NOTE | 2017-02-18 12:05 | HHI.PR ---
Subjective Remarks in no distress. pain is controlled. no fever. Objective Vitals Vital Signs Date Time Temp Pulse Resp B/P (MAP) Pulse Ox O2 Delivery O2 Flow Rate FiO2 02/18/17 09:43 97 Nasal Cannula 3.00 02/18/17 08:00 98.7 98 19 122/69 (86) 99 02/18/17 00:00 97.6 97 19 135/81 (99) 98 02/17/17 20:00 97.5 99 16 135/79 (97) 97 02/17/17 19:46 97 Nasal Cannula 3.00 02/17/17 16:00 97.4 107 16 149/89 (109) 96 I/O 02/17/17 02/17/17 02/17/17 02/18/17 02/18/17 02/18/17 07:00 15:00 23:00 07:00 15:00 23:00 Intake Total 520 ml 1560 ml 480 ml Output Total 2500 ml 600 ml 650 ml Balance -1980 ml 960 ml -170 ml Intake Oral 520 ml 1560 ml 480 ml Output Urine Total 2500 ml 600 ml 650 ml # Voids 3 # Bowel Movements 0 Result Diagram: 02/17/17 0615 02/18/17 0621 Imaging Last Impressions Hip X-Ray 02/16/17 1226 Signed Impressions: Service Date/Time: Thursday, February 16, 2017 13:24 - CONCLUSION: Left hip arthroplasty. Tim Nava MD Objective Remarks GENERAL: This is a well-nourished, well-developed patient, in no apparent distress. CARDIOVASCULAR: Regular rate and regular rhythm without murmurs, gallops, or rubs. RESPIRATORY: Clear to auscultation. Breath sounds equal bilaterally. No wheezes , rales, or rhonchi. GASTROINTESTINAL: Abdomen soft, non-tender, nondistended. Normal, active bowel sounds MUSCULOSKELETAL: Extremities without clubbing, cyanosis, or edema. NEURO: Alert & Oriented x4 to person, place, time, situation. Moves all ext x4 Medications and IVs Current Medications Lactated Ringer's 1,000 ml @ 30 mls/hr Q24H PRN IV SEE LABEL COMMENTS Last administered on 02/16/17t 06:15; Start 02/16/17 at 06:00; Stop 02/19/17 at 05:59 Sodium Chloride 500 ml @ 30 mls/hr [id number] PRN IV SEE LABEL COMMENTS; Start at 06:00; Stop 02/19/17 at 05:59 Metoprolol Tartrate (Lopressor) 25 mg TELECOMMUNICATIONS EQUIPMENT INSTALLER PRN PO SEE LABEL COMMENTS; Start 02/16/17 at 06:00; Stop 02/19/17 at 05:59 Povidone Iodine (Betadine 5% Antisepsis Kit) 1 applic TELECOMMUNICATIONS EQUIPMENT INSTALLER PRN EACH NARE SEE LABEL COMMENTS Last administered on 02/16/17 06:05; Start 02/16/17 at 06:00 ; Stop 02/19/17 at 05:59 Chlorhexidine Gluconate (Chlorhexidine 2% Cloth) 3 pack TELECOMMUNICATIONS EQUIPMENT INSTALLER PRN TOPICAL SEE LABEL COMMENTS Last administered on 02/16/17 06:00; Start 02/16/17 at 06:00 ; Stop 02/19/17 at 05:59 Insulin Human Regular (NovoLIN R INJ) See Protocol Table ... TELECOMMUNICATIONS EQUIPMENT INSTALLER PRN SQ SEE PROTOCOL TABLE; Start 02/16/17 at 06:00; Stop 02/19/17 at 05:59 Cefazolin Sodium/ Dextrose 50 ml @ 100 mls/hr TELECOMMUNICATIONS EQUIPMENT INSTALLER IV Last administered on 02/16/17 07:07; Start 02/16/17 at 06:15; Stop 02/19/17 at 06:14 Vancomycin HCl 1500 mg/Sodium Chloride 515 ml @ 257.5 mls/ hr TELECOMMUNICATIONS EQUIPMENT INSTALLER IV Last administered on 02/16/17 07:11; Start 02/16/17 at 06:15; Stop 02/19/17 at 06:14 Tranexamic Acid 1360 mg/Sodium Chloride 113.6 ml @ 200 mls/hr ONCE IV Last administered on 02/16/17 12:27; Start 02/16/17 at 06:15; Stop 02/16/17 at 17:00 ; Status DC Tranexamic Acid 1360 mg/Sodium Chloride 113.6 ml @ 200 mls/hr ONCE IV Last administered on 02/16/17 13:06; Start 02/16/17 at 06:15; Stop 02/16/17 at 17:00 ; Status DC Bupivacaine Liposome 20 ml/ Sodium Chloride 60 ml @ 120 mls/hr ONCE P-ARTICULR Last administered on 02/16/17 12:41; Start 02/16/17 at 06:15; Stop 02/16/17 at 16:00; Status DC Acetaminophen 100 ml @ As Directed STK-MED ONCE IV ; Start 02/16/17 at 07:01; Stop 02/16/17 at 07:02; Status DC Famotidine (Pepcid Inj) 20 mg STK-MED ONCE .ROUTE ; Start 02/16/17 at 07:01; Stop 02/16/17 at 07:02; Status DC Gentamicin Sulfate (Gentamicin Inj) 160 mg STK-MED ONCE .ROUTE Last administered on 02/16/17 09:00; Start 02/16/17 at 07:09; Stop 02/16/17 at 07:10 ; Status DC Gentamicin Sulfate (Gentamicin Inj) 80 mg STK-MED ONCE .ROUTE ; Start 02/16/17 at 07:09; Stop 02/16/17 at 07:10; Status DC Bupivacaine HCl (Marcaine Pf 0.25% Inj) 30 ml STK-MED ONCE .ROUTE ; Start at 08:26; Stop 02/16/17 at 08:27; Status DC Bupivacaine HCl (Marcaine Pf 0.5% Inj) 30 ml STK-MED ONCE .ROUTE Last administered on 02/16/17 12:25; Start 02/16/17 at 08:26; Stop 02/16/17 at 08:27 ; Status DC Dexamethasone Sodium Phosphate (Decadron Inj) 4 mg STK-MED ONCE .ROUTE Last administered on 02/16/17 12:25; Start 02/16/17 at 08:26; Stop 02/16/17 at 08:27 ; Status DC Methylprednisolone Acetate (Depo-Medrol Inj) 40 mg STK-MED ONCE .ROUTE Last administered on 02/16/17 12:25; Start 02/16/17 at 08:27; Stop 02/16/17 at 08:28 ; Status DC Tranexamic Acid 1000 mg/Sodium Chloride 110 ml @ 0 mls/hr ONCE ONCE IV ; Start 02/16/17 at 12:27; Stop 02/16/17 at 12:28; Status UNV IV Flush (NS Flush) 2 ml UNSCH PRN IVF FLUSH AFTER USING IV ACCESS; Start 02/16 at 12:30 IV Flush (NS Flush) 2 ml BID IVF Last administered on 02/17/17 19:59; Start 02/16/17 at 21:00 Cefazolin Sodium/ Dextrose 50 ml @ 100 mls/hr Q6H IV Last administered on 02/17 03:52; Start 02/16/17 at 16:00; Stop 02/17/17 at 04:29; Status DC Vancomycin HCl 1500 mg/Sodium Chloride 515 ml @ 257.5 mls/ hr Q12H IV Last administered on 02/16/17 23:16; Start 02/16/17 at 23:00; Stop 02/17/17 at 00:59 ; Status DC Miscellaneous Information (Post-op Orders (for Pharmacy)) STAT ONCE XX ; Start 02/16/17 at 13:00; Stop 02/16/17 at 15:07; Status DC Enoxaparin Sodium (Lovenox Inj) 40 mg Q24H SQ Last administered on 02/17/17 12 :01; Start 02/17/17 at 12:00 Acetaminophen/ Hydrocodone Bitart ([place] 5-325 Mg) 2 tab Q6H PRN PO PAIN SCALE 5 TO 10; Start 02/16/17 at 12:30 Tramadol HCl (Ultram) 100 mg Q6H PRN PO PAIN LESS THAN 5 ON SCALE Last administered on 02/18/17 09:05; Start 02/16/17 at 12:30 Ketorolac Tromethamine (Toradol Inj) 30 mg Q8H IVP Last administered on 09:05; Start 02/16/17 at 16:00; Stop 02/19/17 at 00:01 Tranexamic Acid 1360 mg/Sodium Chloride 113.6 ml @ 200 mls/hr UNSCH IV Last administered on 02/16/17 14:04; Start 02/16/17 at 14:00; Stop 02/16/17 at 20:00 ; Status DC Ondansetron HCl (Zofran Inj) 4 mg Q6H PRN IVP NAUSEA OR VOMITING; Start at 12:30 Docusate Sodium (Colace) 100 mg BID PO Last administered on 02/18/17 09:10; Start 02/17/17 at 21:00 Temazepam (Restoril) 15 mg HS PRN PO SLEEP; Start 02/16/17 at 12:30 Naloxone HCl (Narcan Inj) 0.4 mg UNSCH PRN IV PUSH RESPIRATORY RATE LESS THAN 10; Start 02/16/17 at 12:30 Diphenhydramine HCl (Benadryl Inj) 25 mg Q6H PRN IV PUSH ITCHING; Start at 12:30 Morphine Sulfate (Morphine 1 Mg/ ml PILE DRIVER) 30 mg UNSCH IV Last administered on 13:55; Start 02/16/17 at 12:30; Stop 02/17/17 at 10:00; Status DC PILE DRIVER Dosage Infused (Pha) 1 Q8HR .XX Last administered on 02/17/17 05:23; Start 02/16/17 at 14:00; Stop 02/17/17 at 10:00; Status DC Acetaminophen (Ofirmev 1000 Mg/ 100 ml Inj) 1,000 mg Q12HR IV Last administered on 02/16/17 18:04; Start 02/16/17 at 14:00; Stop 02/16/17 at 19:00 ; Status DC Dextrose/Sodium Chloride 1,000 ml @ 125 mls/hr Q8H IV Last administered on 03:55; Start 02/16/17 at 15:00 Acetaminophen (Ofirmev 1000 Mg/ 100 ml Inj) 1,000 mg Q12H IV Last administered on 02/18/17 06:08; Start 02/17/17 at 06:00 Miscellaneous Information ALL NURSING DEPARTME... UNSCH PRN .XX SEE LABEL COMMENTS; Start 02/16/17 at 12:50; Stop 02/17/17 at 12:49; Status DC Morphine Sulfate (*morphine INJ PERIprocedure ONLY) 8 mg STK-MED ONCE .ROUTE Last administered on 02/16/17 13:30; Start 02/16/17 at 14:01; Stop 02/16/17 at 14:02; Status DC Pneumococcal Polyvalent Vaccine (Pneumovax-23 Inj) 25 mcg ONCE ONCE IM Last administered on 02/17/17 09:40; Start 02/17/17 at 10:00; Stop 02/17/17 at 10:01 ; Status DC Influenza Virus Vaccine (Flu (Quadrivalent) Vaccine Inj) 0.5 ml ONCE ONCE IM Last administered on 02/17/17 09:21; Start 02/17/17 at 10:00; Stop 02/17/17 at 10:01; Status DC Celecoxib (CeleBREX) 200 mg DAILY PO Last administered on 02/18/17 09:05; Start 02/17/17 at 09:00 Magnesium Hydroxide (Milk Of Magnesia Liq) 30 ml BID PRN PO MILD CONSTIPATION; Start 02/18/17 at 02:15 Lactulose (Lactulose Liq) 30 ml DAILY PRN PO SEVERE CONSITIPATION; Start at 02:15 Bisacodyl (Dulcolax Supp) 10 mg DAILY PRN RECTAL SEVERE CONSITIPATION; Start 02/18/17 at 02:15 A/P Assessment and Plan A/P - s/p left hip arthroplasty and right knee arthrocentesis and steroid injection continue pain control and rehab efforts. management per ortho. -post-op anemia; will monitor H/H. -DVT with subq lovenox as per Orthopedic Surgery. Alicia Rodriges MD Feb 18, 2017 12:05
--- NOTE | 2017-02-18 12:05 | HHI.PR ---
Subjective Remarks in no distress. pain is controlled. no fever. Objective Vitals Vital Signs Date Time Temp Pulse Resp B/P (MAP) Pulse Ox O2 Delivery O2 Flow Rate FiO2 02/18/17 09:43 97 Nasal Cannula 3.00 02/18/17 08:00 98.7 98 19 122/69 (86) 99 02/18/17 00:00 97.6 97 19 135/81 (99) 98 02/17/17 20:00 97.5 99 16 135/79 (97) 97 02/17/17 19:46 97 Nasal Cannula 3.00 02/17/17 16:00 97.4 107 16 149/89 (109) 96 I/O 02/17/17 02/17/17 02/17/17 02/18/17 02/18/17 02/18/17 07:00 15:00 23:00 07:00 15:00 23:00 Intake Total 520 ml 1560 ml 480 ml Output Total 2500 ml 600 ml 650 ml Balance -1980 ml 960 ml -170 ml Intake Oral 520 ml 1560 ml 480 ml Output Urine Total 2500 ml 600 ml 650 ml # Voids 3 # Bowel Movements 0 Result Diagram: 02/17/17 0615 02/18/17 0621 Imaging Last Impressions Hip X-Ray 02/16/17 1226 Signed Impressions: Service Date/Time: Thursday, February 16, 2017 13:24 - CONCLUSION: Left hip arthroplasty. Tim Nava MD Objective Remarks GENERAL: This is a well-nourished, well-developed patient, in no apparent distress. CARDIOVASCULAR: Regular rate and regular rhythm without murmurs, gallops, or rubs. RESPIRATORY: Clear to auscultation. Breath sounds equal bilaterally. No wheezes , rales, or rhonchi. GASTROINTESTINAL: Abdomen soft, non-tender, nondistended. Normal, active bowel sounds MUSCULOSKELETAL: Extremities without clubbing, cyanosis, or edema. NEURO: Alert & Oriented x4 to person, place, time, situation. Moves all ext x4 Medications and IVs Current Medications Lactated Ringer's 1,000 ml @ 30 mls/hr Q24H PRN IV SEE LABEL COMMENTS Last administered on 02/16/17t 06:15; Start 02/16/17 at 06:00; Stop 02/19/17 at 05:59 Sodium Chloride 500 ml @ 30 mls/hr [id number] PRN IV SEE LABEL COMMENTS; Start at 06:00; Stop 02/19/17 at 05:59 Metoprolol Tartrate (Lopressor) 25 mg NEON SIGN INSTALLER PRN PO SEE LABEL COMMENTS; Start 02/16/17 at 06:00; Stop 02/19/17 at 05:59 Povidone Iodine (Betadine 5% Antisepsis Kit) 1 applic NEON SIGN INSTALLER PRN EACH NARE SEE LABEL COMMENTS Last administered on 02/16/17 06:05; Start 02/16/17 at 06:00 ; Stop 02/19/17 at 05:59 Chlorhexidine Gluconate (Chlorhexidine 2% Cloth) 3 pack NEON SIGN INSTALLER PRN TOPICAL SEE LABEL COMMENTS Last administered on 02/16/17 06:00; Start 02/16/17 at 06:00 ; Stop 02/19/17 at 05:59 Insulin Human Regular (NovoLIN R INJ) See Protocol Table ... NEON SIGN INSTALLER PRN SQ SEE PROTOCOL TABLE; Start 02/16/17 at 06:00; Stop 02/19/17 at 05:59 Cefazolin Sodium/ Dextrose 50 ml @ 100 mls/hr NEON SIGN INSTALLER IV Last administered on 02/16/17 07:07; Start 02/16/17 at 06:15; Stop 02/19/17 at 06:14 Vancomycin HCl 1500 mg/Sodium Chloride 515 ml @ 257.5 mls/ hr NEON SIGN INSTALLER IV Last administered on 02/16/17 07:11; Start 02/16/17 at 06:15; Stop 02/19/17 at 06:14 Tranexamic Acid 1360 mg/Sodium Chloride 113.6 ml @ 200 mls/hr ONCE IV Last administered on 02/16/17 12:27; Start 02/16/17 at 06:15; Stop 02/16/17 at 17:00 ; Status DC Tranexamic Acid 1360 mg/Sodium Chloride 113.6 ml @ 200 mls/hr ONCE IV Last administered on 02/16/17 13:06; Start 02/16/17 at 06:15; Stop 02/16/17 at 17:00 ; Status DC Bupivacaine Liposome 20 ml/ Sodium Chloride 60 ml @ 120 mls/hr ONCE P-ARTICULR Last administered on 02/16/17 12:41; Start 02/16/17 at 06:15; Stop 02/16/17 at 16:00; Status DC Acetaminophen 100 ml @ As Directed STK-MED ONCE IV ; Start 02/16/17 at 07:01; Stop 02/16/17 at 07:02; Status DC Famotidine (Pepcid Inj) 20 mg STK-MED ONCE .ROUTE ; Start 02/16/17 at 07:01; Stop 02/16/17 at 07:02; Status DC Gentamicin Sulfate (Gentamicin Inj) 160 mg STK-MED ONCE .ROUTE Last administered on 02/16/17 09:00; Start 02/16/17 at 07:09; Stop 02/16/17 at 07:10 ; Status DC Gentamicin Sulfate (Gentamicin Inj) 80 mg STK-MED ONCE .ROUTE ; Start 02/16/17 at 07:09; Stop 02/16/17 at 07:10; Status DC Bupivacaine HCl (Marcaine Pf 0.25% Inj) 30 ml STK-MED ONCE .ROUTE ; Start at 08:26; Stop 02/16/17 at 08:27; Status DC Bupivacaine HCl (Marcaine Pf 0.5% Inj) 30 ml STK-MED ONCE .ROUTE Last administered on 02/16/17 12:25; Start 02/16/17 at 08:26; Stop 02/16/17 at 08:27 ; Status DC Dexamethasone Sodium Phosphate (Decadron Inj) 4 mg STK-MED ONCE .ROUTE Last administered on 02/16/17 12:25; Start 02/16/17 at 08:26; Stop 02/16/17 at 08:27 ; Status DC Methylprednisolone Acetate (Depo-Medrol Inj) 40 mg STK-MED ONCE .ROUTE Last administered on 02/16/17 12:25; Start 02/16/17 at 08:27; Stop 02/16/17 at 08:28 ; Status DC Tranexamic Acid 1000 mg/Sodium Chloride 110 ml @ 0 mls/hr ONCE ONCE IV ; Start 02/16/17 at 12:27; Stop 02/16/17 at 12:28; Status UNV IV Flush (NS Flush) 2 ml UNSCH PRN IVF FLUSH AFTER USING IV ACCESS; Start 02/16 at 12:30 IV Flush (NS Flush) 2 ml BID IVF Last administered on 02/17/17 19:59; Start 02/16/17 at 21:00 Cefazolin Sodium/ Dextrose 50 ml @ 100 mls/hr Q6H IV Last administered on 02/17 03:52; Start 02/16/17 at 16:00; Stop 02/17/17 at 04:29; Status DC Vancomycin HCl 1500 mg/Sodium Chloride 515 ml @ 257.5 mls/ hr Q12H IV Last administered on 02/16/17 23:16; Start 02/16/17 at 23:00; Stop 02/17/17 at 00:59 ; Status DC Miscellaneous Information (Post-op Orders (for Pharmacy)) STAT ONCE XX ; Start 02/16/17 at 13:00; Stop 02/16/17 at 15:07; Status DC Enoxaparin Sodium (Lovenox Inj) 40 mg Q24H SQ Last administered on 02/17/17 12 :01; Start 02/17/17 at 12:00 Acetaminophen/ Hydrocodone Bitart ([place] 5-325 Mg) 2 tab Q6H PRN PO PAIN SCALE 5 TO 10; Start 02/16/17 at 12:30 Tramadol HCl (Ultram) 100 mg Q6H PRN PO PAIN LESS THAN 5 ON SCALE Last administered on 02/18/17 09:05; Start 02/16/17 at 12:30 Ketorolac Tromethamine (Toradol Inj) 30 mg Q8H IVP Last administered on 09:05; Start 02/16/17 at 16:00; Stop 02/19/17 at 00:01 Tranexamic Acid 1360 mg/Sodium Chloride 113.6 ml @ 200 mls/hr UNSCH IV Last administered on 02/16/17 14:04; Start 02/16/17 at 14:00; Stop 02/16/17 at 20:00 ; Status DC Ondansetron HCl (Zofran Inj) 4 mg Q6H PRN IVP NAUSEA OR VOMITING; Start at 12:30 Docusate Sodium (Colace) 100 mg BID PO Last administered on 02/18/17 09:10; Start 02/17/17 at 21:00 Temazepam (Restoril) 15 mg HS PRN PO SLEEP; Start 02/16/17 at 12:30 Naloxone HCl (Narcan Inj) 0.4 mg UNSCH PRN IV PUSH RESPIRATORY RATE LESS THAN 10; Start 02/16/17 at 12:30 Diphenhydramine HCl (Benadryl Inj) 25 mg Q6H PRN IV PUSH ITCHING; Start at 12:30 Morphine Sulfate (Morphine 1 Mg/ ml RELATIONS COORDINATOR) 30 mg UNSCH IV Last administered on 13:55; Start 02/16/17 at 12:30; Stop 02/17/17 at 10:00; Status DC RELATIONS COORDINATOR Dosage Infused (Pha) 1 Q8HR .XX Last administered on 02/17/17 05:23; Start 02/16/17 at 14:00; Stop 02/17/17 at 10:00; Status DC Acetaminophen (Ofirmev 1000 Mg/ 100 ml Inj) 1,000 mg Q12HR IV Last administered on 02/16/17 18:04; Start 02/16/17 at 14:00; Stop 02/16/17 at 19:00 ; Status DC Dextrose/Sodium Chloride 1,000 ml @ 125 mls/hr Q8H IV Last administered on 03:55; Start 02/16/17 at 15:00 Acetaminophen (Ofirmev 1000 Mg/ 100 ml Inj) 1,000 mg Q12H IV Last administered on 02/18/17 06:08; Start 02/17/17 at 06:00 Miscellaneous Information ALL NURSING DEPARTME... UNSCH PRN .XX SEE LABEL COMMENTS; Start 02/16/17 at 12:50; Stop 02/17/17 at 12:49; Status DC Morphine Sulfate (*morphine INJ PERIprocedure ONLY) 8 mg STK-MED ONCE .ROUTE Last administered on 02/16/17 13:30; Start 02/16/17 at 14:01; Stop 02/16/17 at 14:02; Status DC Pneumococcal Polyvalent Vaccine (Pneumovax-23 Inj) 25 mcg ONCE ONCE IM Last administered on 02/17/17 09:40; Start 02/17/17 at 10:00; Stop 02/17/17 at 10:01 ; Status DC Influenza Virus Vaccine (Flu (Quadrivalent) Vaccine Inj) 0.5 ml ONCE ONCE IM Last administered on 02/17/17 09:21; Start 02/17/17 at 10:00; Stop 02/17/17 at 10:01; Status DC Celecoxib (CeleBREX) 200 mg DAILY PO Last administered on 02/18/17 09:05; Start 02/17/17 at 09:00 Magnesium Hydroxide (Milk Of Magnesia Liq) 30 ml BID PRN PO MILD CONSTIPATION; Start 02/18/17 at 02:15 Lactulose (Lactulose Liq) 30 ml DAILY PRN PO SEVERE CONSITIPATION; Start at 02:15 Bisacodyl (Dulcolax Supp) 10 mg DAILY PRN RECTAL SEVERE CONSITIPATION; Start 02/18/17 at 02:15 A/P Assessment and Plan A/P - s/p left hip arthroplasty and right knee arthrocentesis and steroid injection continue pain control and rehab efforts. management per ortho. -post-op anemia; will monitor H/H. -DVT with subq lovenox as per Orthopedic Surgery. Alicia Rodriges MD Feb 18, 2017 12:05
[2017-02-18] MEDS: ENOXAPARIN SODIUM 40 MG/0.4 ML SYRINGE SQ SCH (12:35)
[2017-02-18] MEDS ORDERED: HYDR-3516 PO (13:49)
[2017-02-18] MEDS ORDERED: CELE200C PO (13:49)
[2017-02-18] MEDS ORDERED: ENOX40P SQ (13:49)
[2017-02-18] MEDS ORDERED: TRAM50TA PO (13:49)
[2017-02-18] MEDS ORDERED: PROT40TA PO (13:52)
--- NOTE | 2017-02-18 14:01 | HHI.DS ---
Discharge Summary Admission Date Feb 16, 2017 at 05:30 Discharge Date: Feb 18, 2017 Admitting Diagnosis OA left hip OA both knees Lumbar spondylosis Diagnosis: (1) S/P total hip arthroplasty Diagnosis: Principal Status: Acute (2) Effusion of right knee joint Diagnosis: Secondary ICD Codes: M25.461 - Effusion, right knee (3) Osteoarthritis of both knees Diagnosis: Secondary ICD Codes: M17.0 - Bilateral primary osteoarthritis of knee Procedures TERRI left anterior approach and artrocentesis right knee with steroid injection Brief History This is a 71 year old male patient, with several yrs history of arthritis bith hips and knees. Treated with NSAIDS and prescription pain meds for several years. Now not able to walk without walker and unable to WB on left leg CBC/BMP: 02/17/17 0615 02/18/17 0621 Significant Findings Laboratory Tests Test 02/16/17 12:02 02/16/17 13:23 02/16/17 17:19 02/17/17 06:15 Synovial Fluid Appearance SLIGHT (CLEAR) Synovial Fluid WBC 430 /MM3 (0-200) Synovial Fluid RBC 670 /MM3 (0-0) Hemoglobin 10.7 GM/DL (13.0-17.0) 10.4 GM/DL (13.0-17.0) Hematocrit 31.5 % (39.0-51.0) 31.0 % (39.0-51.0) Blood Urea Nitrogen 22 MG/DL (7-18) Creatinine 1.36 MG/DL (0.60-1.30) Random Glucose 118 MG/DL (74-106) Calcium Level 8.2 MG/DL (8.5-10.1) Sodium Level 133 MEQ/L (136-145) Estimat Glomerular Filtration Rate 52 ML/MIN (>89) Test 02/18/17 06:21 Blood Urea Nitrogen 27 MG/DL (7-18) Random Glucose 122 MG/DL (74-106) Calcium Level 8.4 MG/DL (8.5-10.1) Sodium Level 135 MEQ/L (136-145) Estimat Glomerular Filtration Rate 62 ML/MIN (>89) Imaging This is a 71 year old male patient PE at Discharge doing well.afebrile. Able to ambulate with walker WB without much difficulty Transfer Summary To [facility] for rehab Prescriptions for hydrocodone and tramadol written also to get lovenox 40 daily, celebrex 200 mg daily, and protonix 40 mg daily Hospital Course routine post op TERRI including pain mgmt, VTE prophylaxis anfd physiotherapy Pt Condition on Discharge: Stable Discharge Disposition: Rehab Inpatient Discharge Instructions Diet Instructions: As Tolerated, No Restrictions Activities You Can Perform: Weight Bearing as Monica Activities to Avoid: Prolonged Standing, Strenuous Activity, Shower, Driving, Sexual Activity Carter Lara MD Feb 18, 2017 14:01
== END 2017-02-18 15:55 | DRG 470 ==
LOC: HSDI 05:30 → N06A 14:45
PROVIDERS: ADMIT Orthopaedic Surgery; ATTEND Orthopaedic Surgery
PROC: 0S9C3ZX Drainage of Right Knee Joint, Percutaneous Approach, Diagnostic (ICD-10-PCS; 2017-02-16)
PROC: 3E0U33Z Introduction of Anti-inflammatory into Joints, Percutaneous Approach (ICD-10-PCS; 2017-02-16)
PROC: 0SRB03A Replacement of Left Hip Joint with Ceramic Synthetic Substitute, Uncemented, Open Approach (ICD-10-PCS; principal; 2017-02-16 07:30)
PROC: DP091ZZ Beam Radiation of Femur using Photons 1 - 10 MeV (ICD-10-PCS; 2017-02-17)
DX: M16.0 Bilateral primary osteoarthritis of hip (principal); D64.9 Anemia, unspecified; F10.21 Alcohol dependence, in remission; M17.0 Bilateral primary osteoarthritis of knee; M25.461 Effusion, right knee; M47.816 Spondylosis without myelopathy or radiculopathy, lumbar region; M51.36 Other intervertebral disc degeneration, lumbar region; Z87.891 Personal history of nicotine dependence
CPT/HCPCS: 73502; 76000; 80048; 80061; 82607; 82652; 83036; 84443; 85014; 85018; 86850; 86900; 86901; 86920; 87015; 87070; 87102; 87116; 87205; 87206; 89051; 90686; 90732; 94150; C9290; J0131; J0690; J1030; J1100; J1580; J1650; J1885; J2270; J3370; J7040; J7042; J7120; Q2038

== ENCOUNTER 2017-02-28 19:48 | Inpatient (IN) | payer MEDICARE, OTHER ==
[~2017-02-28] VITALS: Ht 195.6 cm; Wt 150.0 kg
[~2017-02-28 19:48] MED LIST changes: +Albuterol-Ipratropium Neb NEB; +CELE200C PO; +COMMODE 3-IN-11 MIS; +ENOX40P SQ; +GETGO ROLLING W1 MI1; +HYDR-3516 PO; +HYDR-3583 PO; -IBUP200T2 PO; +PROT40TA PO; +ZOSY4.5P IV
[2017-02-28] MEDS ORDERED: ACETAMINOPHEN 325 MG TAB PO PRN ×2 (21:15→23:15)
[2017-02-28] MEDS ORDERED: MAGNESIUM HYDROXIDE SUSP 30 ML CUP PO PRN (21:15)
[2017-02-28] MEDS ORDERED: BISACODYL 10 MG SUPP RECTAL PRN (21:15)
[2017-02-28] MEDS ORDERED: SODIUM CHLORIDE 0.9% FLUSH 10 ML FLUSH IV FLUSH PRN ×2 (21:15→23:15)
[2017-02-28] MEDS ORDERED: ONDANSETRON HCL 4 MG/2 ML VIAL IVP PRN (21:15)
[2017-02-28] MEDS ORDERED: NALOXONE HCL 0.4 MG/ML AMP IV PUSH PRN (21:15)
[2017-02-28] MEDS ORDERED: CEFEPIME INJ 2,000 MG in SODIUM CHLORIDE 0.9% INJ 100 ML IV SCH (22:00)
[2017-02-28] MEDS ORDERED: RESP: ALBUTEROL 2.5 MG/IPRATROPIUM 0.5 MG NEB (PRN) NEB (22:15)
[2017-02-28] MEDS ORDERED: ENOXAPARIN SODIUM 40 MG/0.4 ML SYRINGE SQ SCH (23:00)
--- NOTE | 2017-02-28 23:07 | HHI.HP ---
HPI Service [facility] Hospitalists Primary Care Physician Unknown Admission Diagnosis Sepsis, UTI . Diagnoses: (1) Sepsis (2) UTI (urinary tract infection) (3) S/P total hip arthroplasty Chief Complaint: "not feeling very well" Travel History International Travel<30 Days: No Contact w/Intl Traveler <30 Da: No Sepsis Criteria SIRS Criteria (2 or more): Temp > 100.9 or < 96.8, Heart rate over 90, WBC > 88114, < 4000 or > 10% bands Sepsis Criteria (SIRS+source): Infect source susp/known History of Present Illness Mr. Tran is a 71-year-old male with a history of osteoarthritis and lumbar spondylosis who is status post left total hip replacement through anterior approach on 02/16/[address] Lara who was discharged after hospitalization to [facility] and developed symptoms of sepsis while there. Hospitalists were consulted to manage sepsis and transferred patient to [facility] for further medical management. The patient was seen in his room at [facility]. He reported feeling "unwell" and further describe this as feeling tired and fatigued. He reports that his feet feel weak bilaterally and his left hip hurts with movement only. The pain is described as sharp and severe when it occurs. Nursing had reported to me some bloody and purulent discharge from the left anterior hip replacement surgical site along with a temperature of 103.2. I inspected the area and the wound edges are well approximated and covered with Steri-Strips. There is some serosanguineous drainage noted on the dressing but no overt purulent or bloody discharge noted at the time of my exam. The patient denies any chills, chest pain, palpitations, shortness of breath, nausea, vomiting, diarrhea, dysuria, or hematuria. Review of Systems Except as stated in HPI: all other systems reviewed are Neg Past Family Social History Past Medical History Osteoarthritis Lumbar spondylosis Possible history of COPD/emphysema . Past Surgical History Appendectomy Left total hip arthroplasty and right knee steroid injection 02/16/2017 . Reported Medications Reported Meds & Active Scripts Active Zosyn Inj (Piperacillin Sod/Tazobactam Sod) 4.5 Gram Inj 4.5 Gm IV Q8H 7 Days Hydrocodone-Acetamin 10-325 mg (Hydrocodone/Acetaminophen) 10 Mg-325 Mg Tablet 1 -2 Tab PO Q4H PRN [Albuterol-Ipratropium Neb] 1 AMPULE Nebu 1 Ampule NEB Q4HR NEB PRN 1 Days Commode 3-in-1 (Device) 1 Mis Mis Ea .ROUTE DIRECTED Walker Rolling/GetGo (Device) 1 Mis Mis Ea .ROUTE DIRECTED Protonix (Pantoprazole Sodium) 40 Mg Tab 40 Mg PO DAILY 28 Days Lovenox Inj (Enoxaparin Sodium) 40 Mg/0.4 Ml Syr 40 Mg SQ Q24H MDD 40 14 Days Celebrex (Celecoxib) 200 Mg Cap 200 Mg PO DAILY MDD 200 28 Days . Allergies: Coded Allergies: No Known Allergies (Verified Allergy, Unknown, 02/16/17) Active Ordered Medications Current Medications Sodium Chloride 1,000 ml @ 75 mls/hr [id number] IV Last administered on 03:38; Start 02/28/17 at 22:00 Sodium Chloride (NS Flush) 2 ml UNSCH PRN IV FLUSH FLUSH AFTER USING IV ACCESS ; Start 02/28/17 at 21:15; Stop 02/28/17 at 23:13; Status DC Sodium Chloride (NS Flush) 2 ml BID IV FLUSH ; Start 03/01/17 at 09:00; Stop 03/01/17 at 09:00; Status DC Acetaminophen (Tylenol) 650 mg Q4H PRN PO TEMP > 100.4; Start 02/28/17 at 21: 15 Ondansetron HCl (Zofran Inj) 4 mg Q6H PRN IVP NAUSEA OR VOMITING; Start at 21:15 Enoxaparin Sodium (Lovenox Inj) 40 mg Q24H SQ Last administered on 02/28/17 23:38; Start 02/28/17 at 23:00 Naloxone HCl (Narcan Inj) 0.4 mg UNSCH PRN IV PUSH SEE LABEL COMMENTS; Start 02/28/17 at 21:15 Senna/Docusate Sodium (Meg-Colace) 1 tab BID PO ; Start 03/01/17 at 09:00 Magnesium Hydroxide (Milk Of Magnesia Liq) 30 ml Q12H PRN PO Mild constipation ; Start 02/28/17 at 21:15 Bisacodyl (Dulcolax Supp) 10 mg DAILY PRN RECTAL SEVERE CONSITIPATION; Start 02/28/17 at 21:15 Methylprednisolone (Medrol) 4 mg Q12HR NEB PO ; Start 03/01/17 at 08:00; Stop 03/01/17 at 20:01 Methylprednisolone (Medrol) 4 mg ONCE ONCE PO ; Start 03/02/17 at 08:00; Stop 03/02/17 at 08:01 Cefepime HCl 2000 mg/Sodium Chloride 100 ml @ 200 mls/hr Q8H IV ; Start at 22:00; Stop 02/28/17 at 22:02; Status DC Piperacillin Sod/ Tazobactam Sod 50 ml @ 100 mls/hr Q6H IV Last administered on 03/01/17 03:37; Start 03/01/17 at 04:00 Albuterol/ Ipratropium (Duoneb Neb) 1 ampule Q6HR NEB NEB Last administered on 03/01/17t 03:28; Start 03/01/17 at 04:00 Albuterol/ Ipratropium (Duoneb Neb) 1 ampule Q4HR NEB PRN NEB SOB/WHEEZING; Start 02/28/17 at 22:15 Multi-Ingredient Mouthwash/Gargle (Magic Mouthwash Adult Liq) 5 ml QID SWISH- SWAL ; Start 03/01/17 at 09:00 Acetaminophen/ Hydrocodone Bitart ([place] 10-325 Mg) 1 tab Q4H PRN PO Pain 1 - 6 ; Start 02/28/17 at 22:15 Acetaminophen/ Hydrocodone Bitart ([place] 10-325 Mg) 2 tab Q4H PRN PO Pain 7 - 10; Start 02/28/17 at 22:15 Famotidine (Pepcid) 20 mg BID PO ; Start 03/01/17 at 09:00 Sodium Chloride (NS Flush) 2 ml UNSCH PRN IV FLUSH FLUSH AFTER USING IV ACCESS ; Start 02/28/17 at 23:15 Sodium Chloride (NS Flush) 2 ml BID IV FLUSH ; Start 03/01/17 at 09:00 Acetaminophen (Tylenol) 650 mg Q4H PRN PO TEMP > 100.4; Start 02/28/17 at 23: 15 Senna/Docusate Sodium (Meg-Colace) 1 tab BID PO ; Start 03/01/17 at 09:00 . Family History Denies any family history of diabetes mellitus, coronary artery disease stating "I wouldn't really know" . Social History Tobacco: States he previously smoked about 10 years ago for 10 years - about a pack per day Alcohol: Reports former social use but no use since 2000 Illicit Drugs: Denies . Physical Exam Vital Signs Vital Signs Date Time Temp Pulse Resp B/P (MAP) Pulse Ox O2 Delivery O2 Flow Rate FiO2 03/01/17 00:00 100.7 95 18 97/57 (70) 96 Physical Exam GENERAL: This is an obese older male patient, in no apparent distress. SKIN: No rashes. Warm and dry. Left anterior hip scar with wound edges well approximated and covered with steri-strips, dressing has serosanguineous drainage noted. HEAD: Atraumatic. Normocephalic. EYES: No scleral icterus. No injection or drainage. ENT: Nose without bleeding, purulent drainage. NECK: Trachea midline. No JVD. CARDIOVASCULAR: Tachycardic rate and regular rhythm without murmurs, gallops, or rubs. RESPIRATORY: Clear to auscultation. Breath sounds equal bilaterally. No wheezes , rales, or rhonchi. GASTROINTESTINAL: Abdomen soft, non-tender, nondistended. No guarding. MUSCULOSKELETAL: Extremities without clubbing, cyanosis. No calf tenderness. Trace lower extremity edema. NEUROLOGICAL: Awake and alert. Motor and sensory grossly within normal limits. Normal speech. . Laboratory Laboratory Tests Test 02/18/17 19:50 02/19/17 13:32 02/27/17 08:21 02/27/17 12:00 Urine RBC LESS THAN 1 /hpf Blood Urea Nitrogen 24 MG/DL 20 MG/DL Creatinine 1.29 MG/DL 0.97 MG/DL Random Glucose 91 MG/DL 130 MG/DL Total Protein 7.1 GM/DL Albumin 3.0 GM/DL Calcium Level 8.6 MG/DL 8.4 MG/DL Alkaline Phosphatase 79 U/L Aspartate Amino Transf (AST/SGOT) 51 U/L Alanine Aminotransferase (ALT/SGPT) 38 U/L Total Bilirubin 0.6 MG/DL Sodium Level 135 MEQ/L 133 MEQ/L Potassium Level 4.2 MEQ/L 4.2 MEQ/L Chloride Level 100 MEQ/L 98 MEQ/L Carbon Dioxide Level 25.5 MEQ/L 28.1 MEQ/L Anion Gap 7 MEQ/L Estimat Glomerular Filtration Rate 77 ML/MIN Urine Color YELLOW Urine Turbidity HAZY Urine pH 5.5 Urine Specific [place] 1.018 Urine Protein NEG mg/dL Urine Glucose (UA) NEG mg/dL Urine Ketones NEG mg/dL Urine Occult Blood NEG Urine Nitrite NEG Urine Bilirubin NEG Urine Urobilinogen 2.0 MG/DL Urine Leukocyte Esterase NEG Urine WBC 1 /hpf Urine Bacteria MANY /hpf Urine Mucus FEW /lpf Microscopic Urinalysis Comment CULTURE INDICATED Test 02/28/17 07:06 02/28/17 20:23 White Blood Count 20.1 TH/MM3 Red Blood Count 3.43 MIL/MM3 Hemoglobin 10.0 GM/DL Hematocrit 29.5 % Mean Corpuscular Volume 86.0 FL Mean Corpuscular Hemoglobin 29.1 PG Mean Corpuscular Hemoglobin Concent 33.9 % Red Cell Distribution Width 13.0 % Platelet Count 369 TH/MM3 Mean Platelet Volume 6.8 FL Neutrophils (%) (Auto) 80.0 % Lymphocytes (%) (Auto) 12.4 % Monocytes (%) (Auto) 7.0 % Eosinophils (%) (Auto) 0.3 % Basophils (%) (Auto) 0.3 % Neutrophils # (Auto) 16.1 TH/MM3 Lymphocytes # (Auto) 2.5 TH/MM3 Monocytes # (Auto) 1.4 TH/MM3 Eosinophils # (Auto) 0.1 TH/MM3 Basophils # (Auto) 0.1 TH/MM3 CBC Comment DIFF FINAL Differential Comment Lactic Acid Level 1.4 mmol/L Imaging Last Impressions Chest X-Ray 02/28/17 0000 Signed Impressions: Service Date/Time: Tuesday, February 28, 2017 09:00 - CONCLUSION: 1. Stable elevation of the right hemidiaphragm with improving atelectatic changes in the right base. 2. There is some blunting of both costophrenic angles. Aside from a small effusion cannot be excluded. No confluent infiltrates. 3. Degenerative changes in both shoulders. Levoscoliosis of the dorsal spine. Coleman Leon MD Hip X-Ray 02/23/17 0000 Signed Impressions: Service Date/Time: Thursday, February 23, 2017 15:12 - CONCLUSION: Anatomic alignment. Jovanny Garcia MD, Caprini VTE Risk Assessment Caprini VTE Risk Assessment: Mod/High Risk (score >= 2) Caprini Risk Assessment Model Point Value = 1 Point Value = 2 Point Value = 3 Point Value = 5 Age 41-60 Minor surgery BMI > 25 kg/m2 Swollen legs Varicose veins or History of unexplained or recurrent spontaneous Oral contraceptives or hormone replacement Sepsis (< 1 month) Serious lung disease, including pneumonia (< 1 month) Abnormal pulmonary function Acute myocardial infarction Congestive heart failure (< 1 month) History of inflammatory bowel disease Medical patient at bed rest Age 61-74 Arthroscopic surgery Major open surgery (> 45 min) Laparoscopic surgery (> 45 min) Malignancy Confined to bed (> 72 hours) Immobilizing plaster cast Central venous access Age >= 75 History of VTE Family history of VTE Factor V Leiden Prothrombin [id number] Lupus anticoagulant Anticardiolipin antibodies Elevated serum homocysteine Heparin-induced thrombocytopenia Other congenital or acquired thrombophilia Stroke (< 1 month) Elective arthroplasty Hip, pelvis, or leg fracture Acute spinal cord injury (< 1 month) Prophylaxis Regimen Total Risk Factor Score Risk Level Prophylaxis Regimen 0-1 Low Early ambulation 2 Moderate Order ONE of the following: *Sequential Compression Device (SCD) *Heparin 5000 units SQ BID 3-4 Higher Order ONE of the following medications: *Heparin 5000 units SQ TID *Enoxaparin/Lovenox 40 mg SQ daily (WT < 150 kg, CrCl > 30 mL/min) *Enoxaparin/Lovenox 30 mg SQ daily (WT < 150 kg, CrCl > 10-29 mL/min) *Enoxaparin/Lovenox 30 mg SQ BID (WT < 150 kg, CrCl > 30 mL/min) AND/OR *Sequential Compression Device (SCD) 5 or more Highest Order ONE of the following medications: *Heparin 5000 units SQ TID (Preferred with Epidurals) *Enoxaparin/Lovenox 40 mg SQ daily (WT < 150 kg, CrCl > 30 mL/min) *Enoxaparin/Lovenox 30 mg SQ daily (WT < 150 kg, CrCl > 10-29 mL/min) *Enoxaparin/Lovenox 30 mg SQ BID (WT < 150 kg, CrCl > 30 mL/min) AND *Sequential Compression Device (SCD) Assessment and Plan Problem List: (1) Sepsis ICD Code: A41.9 - Sepsis, unspecified organism (2) S/P total hip arthroplasty ICD Code: Z96.649 - Presence of unspecified artificial hip joint Status: Acute Assessment and Plan 71-year-old male with a history of osteoarthritis and lumbar spondylosis who is status post left total hip replacement through anterior approach on 02/16/2017 who was discharged after hospitalization to [facility] and developed symptoms of sepsis while there. Hospitalists were consulted to manage sepsis and transferred patient to [facility] for further medical management. Sepsis likely secondary to urinary tract infection - Temperature 103.2, pulse 125, white blood count 20.1 with neutrophilia noted; urine with many bacteria noted and culture pending - Zosyn 3.375 mg IV every 6 hours - Blood cultures and wound culture from left hip done at [facility] and are pending- await results - Urine culture positive for gram-negative rods - await sensitivity and adjust treatment if indicated - Monitor vital signs every 4 hours - Continuous cardiac telemetry to monitor for arrhythmias recheck CBC in a.m. and follow results Status post left total hip arthroplasty - Purulent drainage noted by rehabilitation nurses (wound culture pending) - Consult orthopedic surgeon - Consult physical therapy to continue therapy and prevent further debility - Continue [place] p.o. for pain management Intermittent shortness of breath with possible history of COPD - Duonebulizers q6h ATC and q4h PRN SOB/wheezing - CXR personally reviewed and shows right hemidiaphragm elevation similar in appearance to chest xray reviewed by me for comparison dated 02/04/17; No pulmonary infiltrates noted; right tiny pleural effusion noted. - continue to monitor and adjust therapies if indicated DVT prophylaxis - Lovenox 40 mg subq q24h Discussed Condition With Dr. Albarran, patient, patient's RN . Physician Certification 2 Midnight Certification Type: Admission for Inpatient Services Order for Inpatient Services The services are ordered in accordance with Medicare regulations or non- Medicare payer requirements, as applicable. In the case of services not specified as inpatient-only, they are appropriately provided as inpatient services in accordance with the 2-midnight benchmark. Estimated LOS (days): 3 days is the estimated time the patient will need to remain in the hospital, assuming treatment plan goals are met and no additional complications. Post-Hospital Plan: Not yet determined Venita Morales Feb 28, 2017 23:07
[2017-02-28] MEDS: SODIUM CHLOR 0.9% 1000 ML INJ 1,000 ML IV SCH (23:39)
[2017-03-01] VITALS (8 sets, daily range): BP systolic 97–118; BP diastolic 57–75; PULSE 92–110; RESP 16–22; TEMP 97–103.4; O2SAT 96–99
[2017-03-01] MEDS: RESP: ALBUTEROL 2.5 MG/IPRATROPIUM 0.5 MG NEB (SCH) NEB ×5 (03:28→21:44)
[2017-03-01] MEDS: PIPERACIL-TAZO 3.375 GM PREMIX 50 ML IV SCH ×4 (03:37→21:25)
[2017-03-01] MEDS: SODIUM CHLOR 0.9% 1000 ML INJ 1,000 ML IV SCH (03:38)
[2017-03-01 08:17] LABS: BICARBONATE 20.8 MEQ/L (21.0-32.0)
[2017-03-01 08:19] LABS: POTASSIUM 5.3 MEQ/L (3.5-5.1)
[2017-03-01] MEDS ORDERED: DOCUSATE SODIUM 50 MG/SENNA 8.6 MG TAB PO SCH (09:00)
[2017-03-01] MEDS: SODIUM CHLORIDE 0.9% FLUSH 10 ML FLUSH IV FLUSH SCH ×2 (09:00→21:00)
[2017-03-01] MEDS ORDERED: SODIUM CHLORIDE 0.9% FLUSH 10 ML FLUSH IV FLUSH SCH (09:00)
[2017-03-01] MEDS: methylPREDNISolone 4 MG TAB PO SCH ×2 (09:13→21:25)
[2017-03-01] MEDS: FAMOTIDINE 20 MG TAB PO SCH ×2 (09:13→21:25)
[2017-03-01] MEDS: DOCUSATE SODIUM 50 MG/SENNA 8.6 MG TAB PO SCH ×2 (09:13→21:26)
[2017-03-01] MEDS: NYSTAT/DIPHENHY/LIDO MOUTHWASH (Adult) 120ML SWISH-SWAL SCH ×4 (09:14→21:26)
[2017-03-01] MEDS ORDERED: SODIUM CHLORID 0.9% 500 ML INJ 500 ML IV ONE (09:15)
--- NOTE | 2017-03-01 10:01 | MB ---
cc: ANDREW JAVIER DATE OF CONSULTATION 03/01/2017 REASON FOR CONSULTATION Postop infection left hip. HISTORY This patient had a total hip replacement arthroplasty performed through an anterior approach on 02/16/2017. Postoperative course was uneventful. He was sent to inpatient rehab at [facility] where I saw him last Tuesday, 02/23 and removed the wound Vac dressing that was placed immediately postop. The incision looked good and he was supposed to be followed up in the office. The patient was admitted to this floor last night with sepsis with possible positive urine culture, but also drainage from the left hip. Examination this morning reveals purulent drainage from the upper portion of the left hip surgical incision with induration around. Apparently they have cultured this drainage. The report is not available at this time. IMPRESSION Postop infection left total hip. PLAN The patient needs to be taken to the operating room for incision and drainage and debridement and probable liner exchange. We need to make sure that because of this large size, the liner will be available and therefore the surgery be done either this afternoon or tomorrow. The situation briefly discussed with the patient and will be further discussed with the family. MD DONNA Cee/NATHEN /8:05 AM /9:57 AM
--- NOTE | 2017-03-01 12:11 | RADRPT ---
EXAM DATE/TIME: 03/01/2017 00:00 [facility] COMPARISON: HIP LEFT (AP&LAT 2/3VWS) WO AP PELVIS, February 23, 2017, 15:12. INDICATIONS : Left hip pain and inflammation post op from 2016. MEDICAL HISTORY : None. SURGICAL HISTORY : Left total hip. ENCOUNTER: [facility]ela ACUITY: 2 weeks PAIN SCORE: 8/10 LOCATION: Left hip. FINDINGS: Examination of the left hip was performed with AP Pelvis. Left hip arthroplasty. No hardware loosenin g. Fracture of the inferior pubic ramus on the left of undetermined age. Moderate degenerative change s right hip. The acetabulum is grossly intact. CONCLUSION: 1. Left hip arthroplasty. 2. Fracture inferior pubic ramus on the left of indeterminate age. Tim Nava MD on March 01, 2017 at 12:08 Board Certified Radiologist. This report was verified electronically.
--- NOTE | 2017-03-01 15:43 | HHI.PR ---
Subjective Remarks Patient seen and evaluated today in follow-up for sepsis and drainage from his hip replacement (patient also with UTI). MAXIMUM TEMPERATURE 100.7 Patient plan shortness of breath with dyspnea with minimal exertion Potassium elevated and renal function impaired Patient says he feels "unwell". Objective Vitals Vital Signs Date Time Temp Pulse Resp B/P (MAP) Pulse Ox O2 Delivery O2 Flow Rate FiO2 03/01/17 11:45 99.4 104 19 113/75 (88) 98 03/01/17 09:08 92 03/01/17 07:32 99.7 92 19 112/66 (81) 99 03/01/17 04:00 99.3 99 18 118/71 (87) 96 03/01/17 00:00 100.7 95 18 97/57 (70) 96 I/O 02/28/17 02/28/17 02/28/17 03/01/17 03/01/17 03/01/17 07:00 15:00 23:00 07:00 15:00 23:00 Intake Total 170 ml 2537 ml Output Total 600 ml Balance 170 ml 1937 ml Intake Oral 120 ml 650 ml IV Total 50 ml 1887 ml Output Urine Total 600 ml # Voids 1 # Bowel Movements 0 0 Result Diagram: 03/01/17 0527 Imaging Last Impressions Hip and Pelvis X-Ray 03/01/17 0000 Signed Impressions: Service Date/Time: Wednesday, March 01, 2017 00:00 - CONCLUSION: 1. Left hip arthroplasty. 2. Fracture inferior pubic ramus on the left of indeterminate age. Tim Nava MD Objective Remarks GENERAL: This is a well-nourished, well-developed patient, pursed lip breathing , and sob at rest CARDIOVASCULAR: Regular rate and rhythm without murmurs, gallops, or rubs. RESPIRATORY: Clear to auscultation. Breath sounds equal bilaterally. No wheezes , rales, or rhonchi. GASTROINTESTINAL: Abdomen soft, non-tender, nondistended. Normal active bowel sounds MUSCULOSKELETAL: Extremities without clubbing, cyanosis, or edema. NEURO: Alert & Oriented x4 to person, place, time, situation. Moves all ext x4 A/P Problem List: (1) Sepsis ICD Code: A41.9 - Sepsis, unspecified organism Plan: Possible source hip (gram neg chema in hip) v uti follow blood cultures cont iv zosyn to OR per ortho for poss exploration (2) UTI (urinary tract infection) ICD Code: N39.0 - Urinary tract infection, site not specified Plan: klebsiella Oxytoca Cont zosyn (3) S/P total hip arthroplasty ICD Code: Z96.649 - Presence of unspecified artificial hip joint Status: Acute Plan: pod # 12 s/p TERRI and right knee injection Continue pain management (4) SHANTA (acute kidney injury) ICD Code: N17.9 - Acute kidney failure, unspecified Plan: fluid challenge follow and avoid nephrotoxins treat uti If no improvement will check urine ultrasound (5) Hyperkalemia ICD Code: E87.5 - Hyperkalemia Plan: We'll add Bumex, follow repeat values (6) SOB (shortness of breath) ICD Code: R06.02 - Shortness of breath Plan: Patient with a history of tobacco dependency tachypnea and dyspnea Continue bronchodilators, steroid prescribed Follow-up after Bumex (weight up 10 kg since admission) Echo cardiac impending/abnormal EKG Assessment and Plan preadmission hx was only OA (home meds were ibuprofen) Mary Ambrosio MD Mar 01, 2017 15:43
[2017-03-01] MEDS ORDERED: BUMETANIDE INJ 1 MG/4 ML VIAL IV PUSH ONE (15:45)
--- NOTE | 2017-03-01 16:19 | MB ---
cc: JOYCELYN VERGARA MD DATE OF CONSULTATION 03/01/[address] Lara REASON FOR CONSULTATION Infected left hip arthroplasty. HISTORY OF PRESENT ILLNESS This is a 71-year-old white male who underwent left total hip replacement arthroplasty in February. The patient underwent rehab therapy after that. The replacement arthroplasty was for end-stage osteoarthritis of the left hip. He was in rehab between February 18 and February 28. He was noted to have tachypnea and dyspnea yesterday. The patient was also noted to have drainage coming from his left hip incision. He was transferred to the medical floor for further management. The patient had an elevated temperature of 103 degrees yesterday evening. Prior to that on the evening of 02/27 he also had low grade elevated temperature of 100.9 degrees. He was also noted to have increased white count which went from 17.4 on 02/27 to 20.1. Urinalysis and urine culture was performed. The urine culture has Klebsiella oxytoca. Culture of the left hip drainage was also sent and it has gram-negative chema. Blood culture has no growth in one day. The patient notes that he has been having pain in the right knee when he was doing the rehab and he was also having some pain in the left hip as well. He noted that he has been feeling tired and that the left hip hurts when he moves. The patient denies dysuria. He denies fever or chills. PAST MEDICAL HISTORY 1. Osteoarthritis. 2. Lumbar spondylosis. 3. History of appendectomy. 4. Left hip arthroplasty on 02/16/2017. 5. Right knee steroid injection on 02/16/2017. ALLERGIES NO KNOWN DRUG ALLERGIES. MEDICATIONS 1. Medrol. 2. Meg-Colace. 3. Pepcid. 4. Piperacillin / tazobactam. 5. Medrol 4 mg p.o. q. 12. 6. Lovenox. SOCIAL HISTORY Positive tobacco. Positive alcohol. No illicit drugs. The patient is originally from the [facility]. FAMILY HISTORY Noncontributory. REVIEW OF SYSTEMS Significant for fever, fatigue, shortness of breath, left hip pain and left knee pain and mild soreness of the throat. PHYSICAL EXAMINATION GENERAL: This is an obese male who is in no acute distress. He is awake and alert and oriented. VITAL SIGNS: Temperature 99.4, BP 113/75, respirations 18, heart rate 104. HEENT: Head atraumatic. Extraocular movements grossly intact, pupils reactive to light without icterus. Oropharynx moist mucosa without visible lesions. NECK: Supple without adenopathy. LUNGS: Clear breath sounds. HEART: Regular S1-S2. No audible murmurs. No audible rubs. No audible gallops. ABDOMEN: Bowel sounds present, soft, no tenderness appreciated. Abdomen is obese. RECTAL: Not performed. EXTREMITIES: Left hip is markedly swollen and there is purulent drainage coming from the left side incision from prior surgery. Left thigh is also edematous and the left leg just below the knee also has swelling. The right knee has swelling. approximately 2-3+. No erythema at the right knee. SKIN: No diffuse rash. NEUROLOGIC: Nonfocal. PSYCHIATRIC: The patient is calm and cooperative. LABORATORY DATA WBC 20.1, platelets 369, 80% neutrophils, hemoglobin 10.0. Creatinine 1.46, BUN 30, estimated GFR 48, sodium 130. IMAGING X-ray of the hip and pelvis reveals fracture of the inferior pubic ramus on the left of indeterminate age. Chest x-ray showed no confluent infiltrates. There is some blunting of both costophrenic angles. IMPRESSION 1. Sepsis. 2. Infected left hip total arthroplasty. Preliminary cultures have gram-negative chema. 3. Urinary tract infection due to Klebsiella which is sensitive to piperacillin / tazobactam. 4. Leukocytosis secondary to left hip infection. RECOMMENDATIONS 1. Continue piperacillin / tazobactam. 2. Monitor the hip wound culture. 3. Monitor white blood cell count and clinical response. 4. Surgical intervention to be decided by Dr. Lara. It is possible and very likely that the wound infection of the hip may have originated from the urine. Thank you this consultation. The patient's progress will be monitored and further recommendations will be given upon followup. Joycelyn Vergara MD FD/SRUTHI /3:14 PM /3:39 PM
[2017-03-01] MEDS: ACETAMINOPHEN/HYDROcodone 325 MG/10 MG TAB PO PRN ×2 (17:22→21:24)
[2017-03-01 20:21] LABS: HEMATOCRIT 27.2 % (39.0-51.0); MEAN CELL VOLUME 85.6 FL (80.0-100.0); MEAN CORPUSCULAR HEMOGLOBIN 28.1 PG (27.0-34.0); MEAN CORPUSCULAR HGB CONC 32.8 % (32.0-36.0); PLATELET COUNT 370 TH/MM3 (150-450); RED BLOOD COUNT 3.18 MIL/MM3 (4.50-5.90); RED CELL DISTRIBUTION WIDTH 13.3 % (11.6-17.2); REVIEW FLAG FINAL; WHITE BLOOD COUNT 16.4 TH/MM3 (4.0-11.0)
[2017-03-02] VITALS (8 sets, daily range): BP systolic 109–124; BP diastolic 62–73; PULSE 83–109; RESP 18–20; TEMP 97.3–98.9; O2SAT 93–100
[2017-03-02] MEDS ORDERED: CHLORHEXIDINE GLUCONATE 2 % 1 PACK (2 CLOTHS) TOPICAL PRN (03:00)
[2017-03-02] MEDS ORDERED: POVIDONE IODINE 5% (ANTISEPSIS KIT) 4 APPLICATIONS EACH NARE PRN (03:00)
[2017-03-02] MEDS ORDERED: LACTATED RINGER'S 1000 ML IV PRN (03:00)
[2017-03-02] MEDS ORDERED: SODIUM CHLORID 0.9% 500 ML IV PRN (03:00)
[2017-03-02 03:18] LABS: BASOPHIL % 0.1 % (0.0-2.0); EOSINOPHIL # 0.1 TH/MM3 (0-0.4); EOSINOPHIL % 0.6 % (0.0-4.0); HEMATOCRIT 26.3 % (39.0-51.0); HEMO FLAGS DIFF FINAL; LYMPH % 7.6 % (9.0-44.0); LYMPHOCYTE # 1.2 TH/MM3 (1.0-4.8); MEAN CELL VOLUME 86.5 FL (80.0-100.0); MEAN CORPUSCULAR HEMOGLOBIN 28.8 PG (27.0-34.0); MEAN CORPUSCULAR HGB CONC 33.3 % (32.0-36.0); MONO % 6.9 % (0.0-8.0); NEUT % 84.8 % (16.0-70.0); PLATELET COUNT 343 TH/MM3 (150-450); RED BLOOD COUNT 3.04 MIL/MM3 (4.50-5.90); RED CELL DISTRIBUTION WIDTH 13.4 % (11.6-17.2); WHITE BLOOD COUNT 15.4 TH/MM3 (4.0-11.0)
[2017-03-02] MEDS: PIPERACIL-TAZO 3.375 GM PREMIX 50 ML IV SCH ×4 (03:31→21:01)
[2017-03-02 03:49] LABS: BICARBONATE 24.8 MEQ/L (21.0-32.0); POTASSIUM 3.9 MEQ/L (3.5-5.1)
[2017-03-02] MEDS: RESP: ALBUTEROL 2.5 MG/IPRATROPIUM 0.5 MG NEB (SCH) NEB ×4 (04:00→21:47)
[2017-03-02] MEDS ORDERED: methylPREDNISolone 4 MG TAB PO ONE (08:00)
[2017-03-02] MEDS: NYSTAT/DIPHENHY/LIDO MOUTHWASH (Adult) 120ML SWISH-SWAL SCH ×4 (08:01→21:01)
[2017-03-02] MEDS: FAMOTIDINE 20 MG TAB PO SCH ×2 (08:01→21:00)
[2017-03-02] MEDS: DOCUSATE SODIUM 50 MG/SENNA 8.6 MG TAB PO SCH ×2 (08:01→21:00)
[2017-03-02] MEDS ORDERED: ROCURONIUM INJ 50 MG/5 ML SYRINGE IV PUSH ONE (12:00)
[2017-03-02] MEDS ORDERED: MORPHINE SULFATE 4 MG/ML INJ IV ONE (12:00)
[2017-03-02] MEDS ORDERED: ONDANSETRON HCL 4 MG/2 ML VIAL IV PUSH ONE (12:00)
[2017-03-02] MEDS ORDERED: LIDOCAINE HCL 1% PF 5 ML SYRINGE OTHER ONE (12:00)
[2017-03-02] MEDS ORDERED: PROPOFOL 200 MG/20 ML AMP IV ONE (12:00)
--- NOTE | 2017-03-02 12:23 | HHI.PR ---
Subjective Remarks The patient is in bed he has pain in his heat. No fever or chills. He feels very tired. Plan for surgery per orthopedic Objective Vitals Vital Signs Date Time Temp Pulse Resp B/P (MAP) Pulse Ox O2 Delivery O2 Flow Rate FiO2 03/02/17 09:40 88 03/02/17 08:00 98.5 92 18 109/66 (80) 98 03/02/17 04:02 91 03/02/17 04:00 97.3 93 18 120/62 (81) 93 03/02/17 01:00 97.3 83 18 124/73 (90) 98 03/01/17 20:00 97.0 97 18 113/57 (75) 97 03/01/17 18:40 102.9 110 22 112/62 (79) 96 03/01/17 16:08 103.4 102 16 112/66 (81) 97 I/O 03/01/17 03/01/17 03/01/17 03/02/17 03/02/17 03/02/17 07:00 15:00 23:00 07:00 15:00 23:00 Intake Total 170 ml 2537 ml 50 ml 50 ml Output Total 600 ml 875 ml Balance 170 ml 1937 ml 50 ml -825 ml Intake Oral 120 ml 650 ml IV Total 50 ml 1887 ml 50 ml 50 ml Output Urine Total 600 ml 875 ml # Voids 1 # Bowel Movements 0 0 Result Diagram: 03/02/17 0253 03/02/17 0253 Imaging Last Impressions Hip and Pelvis X-Ray 03/01/17 0000 Signed Impressions: Service Date/Time: Wednesday, March 01, 2017 00:00 - CONCLUSION: 1. Left hip arthroplasty. 2. Fracture inferior pubic ramus on the left of indeterminate age. Tim Nava MD Objective Remarks GENERAL: This is a well-nourished, well-developed patient, pursed lip breathing , and sob at rest CARDIOVASCULAR: Regular rate and rhythm without murmurs, gallops, or rubs. RESPIRATORY: Clear to auscultation. Breath sounds equal bilaterally. No wheezes , rales, or rhonchi. GASTROINTESTINAL: Abdomen soft, non-tender, nondistended. Normal active bowel sounds MUSCULOSKELETAL: Extremities without clubbing, cyanosis, or edema. NEURO: Alert & Oriented x4 to person, place, time, situation. Moves all ext x4 A/P Problem List: (1) Sepsis ICD Code: A41.9 - Sepsis, unspecified organism (2) UTI (urinary tract infection) ICD Code: N39.0 - Urinary tract infection, site not specified (3) S/P total hip arthroplasty ICD Code: Z96.649 - Presence of unspecified artificial hip joint Status: Acute (4) SHANTA (acute kidney injury) ICD Code: N17.9 - Acute kidney failure, unspecified (5) Hyperkalemia ICD Code: E87.5 - Hyperkalemia (6) SOB (shortness of breath) ICD Code: R06.02 - Shortness of breath Assessment and Plan Sepsis Possible source hip (gram neg chema in hip) v uti follow blood cultures cont iv zosyn to OR per ortho for poss exploration Infectious disease also following appreciate recommendations UTI (urinary tract infection) klebsiella Oxytoca Cont zosyn S/P total hip arthroplasty s/p TERRI and right knee injection on 02/16/17 Continue pain management SHANTA (acute kidney injury) fluid challenge follow and avoid nephrotoxins treat uti If no improvement will check urine ultrasound Hyperkalemia We'll add Bumex, follow repeat values OB (shortness of breath) Patient with a history of tobacco dependency tachypnea and dyspnea Continue bronchodilators, steroid prescribed Follow-up after Bumex (weight up 10 kg since admission) Echo cardiac impending/abnormal EKG DVT prophylaxis per surgeon Discussed with the patient, nurse Discharge plan. IV antibiotics with sepsis, also plans for exploratory surgery. Workup in progress. Discharge when improved and cleared by consultants. Angela Del Rosario MD Mar 02, 2017 12:23
--- NOTE | 2017-03-02 12:51 | HHI.IDPN ---
Note Infectious Disease Note Patient feels okay. Notes he get a little chilly. Not having much pain in the left hip. Afebrile. RN report a lot of drainage at the left hip. Left hip wound has klebsiella pneumoniae. Urine culture has klebsiella oxytoca. PAST MEDICAL HISTORY 1. Osteoarthritis. 2. Lumbar spondylosis. 3. History of appendectomy. 4. Left hip arthroplasty on 02/16/2017. 5. Right knee steroid injection on 02/16/2017. ALLERGIES NO KNOWN DRUG ALLERGIES. ANTIBIOTICS: Piperacillin / tazobactam. SOCIAL HISTORY Positive tobacco. Positive alcohol. No illicit drugs. The patient is originally from the [facility]. FAMILY HISTORY Noncontributory. OBJECTIVE: Vital Signs Date Time Temp Pulse Resp B/P (MAP) Pulse Ox O2 Delivery O2 Flow Rate FiO2 03/02/17 09:40 88 03/02/17 08:00 98.5 92 18 109/66 (80) 98 03/02/17 04:02 91 03/02/17 04:00 97.3 93 18 120/62 (81) 93 03/02/17 01:00 97.3 83 18 124/73 (90) 98 03/01/17 20:00 97.0 97 18 113/57 (75) 97 03/01/17 18:40 102.9 110 22 112/62 (79) 96 03/01/17 16:08 103.4 102 16 112/66 (81) 97 Laboratory Tests Test 03/01/17 19:53 03/02/17 02:53 White Blood Count 16.4 TH/MM3 15.4 TH/MM3 Red Blood Count 3.18 MIL/MM3 3.04 MIL/MM3 Hemoglobin 8.9 GM/DL 8.8 GM/DL Hematocrit 27.2 % 26.3 % Mean Corpuscular Volume 85.6 FL 86.5 FL Mean Corpuscular Hemoglobin 28.1 PG 28.8 PG Mean Corpuscular Hemoglobin Concent 32.8 % 33.3 % Red Cell Distribution Width 13.3 % 13.4 % Platelet Count 370 TH/MM3 343 TH/MM3 Mean Platelet Volume 7.1 FL 7.4 FL Neutrophils (%) (Auto) 84.8 % Lymphocytes (%) (Auto) 7.6 % Monocytes (%) (Auto) 6.9 % Eosinophils (%) (Auto) 0.6 % Basophils (%) (Auto) 0.1 % Neutrophils # (Auto) 13.0 TH/MM3 Lymphocytes # (Auto) 1.2 TH/MM3 Monocytes # (Auto) 1.1 TH/MM3 Eosinophils # (Auto) 0.1 TH/MM3 Basophils # (Auto) 0.0 TH/MM3 CBC Comment DIFF FINAL Differential Comment Laboratory Tests Test 03/01/17 05:27 03/01/17 21:55 03/02/17 02:53 Blood Urea Nitrogen 30 MG/DL 28 MG/DL Creatinine 1.46 MG/DL 1.44 MG/DL Random Glucose 88 MG/DL 160 MG/DL Calcium Level 7.9 MG/DL 7.6 MG/DL Sodium Level 130 MEQ/L 132 MEQ/L Potassium Level 5.3 MEQ/L 3.9 MEQ/L Chloride Level 99 MEQ/L 100 MEQ/L Carbon Dioxide Level 20.8 MEQ/L 24.8 MEQ/L Anion Gap 10 MEQ/L 7 MEQ/L Estimat Glomerular Filtration Rate 48 ML/MIN 49 ML/MIN Lactic Acid Level 3.0 mmol/L 1.9 mmol/L IMAGING: Hip and Pelvis X-Ray 03/01/17 0000 Signed Impressions: Service Date/Time: Wednesday, March 01, 2017 00:00 - CONCLUSION: 1. Left hip arthroplasty. 2. Fracture inferior pubic ramus on the left of indeterminate age. Tim Nava MD PHYSICAL EXAMINATION GENERAL: No acute distress. He is awake and alert and oriented. HEENT: No icterus. Oropharynx moist mucosa without visible lesions. NECK: Supple without adenopathy. LUNGS: Clear breath sounds. HEART: Regular S1-S2. No audible murmurs. No audible rubs. No audible gallops. ABDOMEN: Bowel sounds present, soft. RECTAL: Not performed. EXTREMITIES: Left hip remain markedly swollen and has purulent drainage coming from the left side incision from prior surgery. Left thigh is also edematous and the left leg just below the knee also has swelling. The right knee has swelling. approximately 2-3+. No erythema at the right knee. SKIN: No diffuse rash. NEUROLOGIC: Nonfocal. PSYCHIATRIC: Calm and cooperative. IMPRESSION 1. Sepsis. 2. Infected left hip total arthroplasty. Klebsiella pneumoniae. 3. Urinary tract infection due to Klebsiella which is sensitive to piperacillin / tazobactam. 4. Leukocytosis secondary to left hip infection. WBC lower. RECOMMENDATIONS 1. Continue piperacillin / tazobactam. 2. Monitor white blood cell count and clinical response. 3. Surgical intervention to be decided by Dr. Lara. Vladimir Briceño MD Mar 02, 2017 12:51
[2017-03-02] MEDS ORDERED: GENTAMICIN SULFATE 80 MG/2 ML VIAL ONE ×2 (14:56→16:33)
[2017-03-02] MEDS ORDERED: ceFAZolin INJ 1,000 MG VIAL ONE (16:33)
--- NOTE | 2017-03-02 18:32 | EKG ---
Date Performed: 03/02/2017 Time Performed: 03:58:30 PTAGE: 71 years EKG: Sinus rhythm with borderline 1st degree A-V block Leftward axis RBBB Abnormal ECG PREVIOUS TRACING : 02/04/2017 09.44 Compared to prior tracing no significant change DOCTOR: Vanessa Jarrell Interpretating Date/Time 03/02/2017 18:31:30
[2017-03-02] MEDS ORDERED: *MEPERIDINE 25 MG INJ VIAL PERIprocedural Use ONLY ONE (18:46)
[2017-03-02] MEDS ORDERED: *morphine SULFATE 8 MG/ML PERIprocedure ONLY ONE ×2 (18:51→19:00)
[2017-03-02] MEDS ORDERED: SODIUM CHLORIDE 0.9% FLUSH 5 ML FLUSH IVF PRN (19:15)
[2017-03-02] MEDS ORDERED: HYDROmorphone HCL PF 1 MG/ML VIAL IV PUSH PRN (19:15)
[2017-03-02] MEDS ORDERED: Post-op Orders (for Pharmacy) MISC XX ONE (19:15)
[2017-03-02] MEDS ORDERED: diphenhydrAMINE HCL 25 MG CAP PO PRN (19:15)
[2017-03-02] MEDS ORDERED: DO NOT ADM ANY ANTICOAGULANT DRUGS PRN (19:15)
[2017-03-02] MEDS ORDERED: NALOXONE HCL 0.4 MG/ML AMP IV PUSH PRN ×2 (19:15)
[2017-03-02] MEDS: DEXT 5%-NACL 0.45% 1000 ML INJ 1,000 ML IV SCH (20:00)
--- NOTE | 2017-03-02 20:53 | RADRPT ---
EXAM DATE/TIME: 03/02/2017 19:40 [place] COMPARISON: No previous studies available for comparison. INDICATIONS : Post op I and D left hip. MEDICAL HISTORY : None. SURGICAL HISTORY : None. ENCOUNTER: Initial ACUITY: 1 day PAIN SCORE: 10/10 LOCATION: Left hip. FINDINGS: A single AP view of the left hip has been performed. There is total hip prosthesis in place. The acet abular component is secured by a single screw superiorly. The prosthetic components appear aligned on this single image. Bony destruction or periosteal reaction is not seen. There is a focal lucency lik ashley representing air projecting over the superior aspect of the femoral neck region. CONCLUSION: Total hip prosthesis in good location. There is suspected air projecting over the soft tissues superi or to the left femoral neck. Alexi Bailey MD on March 02, 2017 at 20:50 Board Certified Radiologist. This report was verified electronically.
[2017-03-02] MEDS: KETOROLAC TROMETHAMINE 30 MG/ML (IVP) VIAL IVP SCH (21:00)
[2017-03-02] MEDS: SODIUM CHLORIDE 0.9% FLUSH 5 ML FLUSH IVF SCH (21:00)
[2017-03-02] MEDS: ACETAMINOPHEN/HYDROcodone 325 MG/10 MG TAB PO PRN (21:00)
[2017-03-03] VITALS (9 sets, daily range): BP systolic 90–135; BP diastolic 54–75; PULSE 76–105; RESP 18–20; TEMP 98.3–100; O2SAT 94–98
[2017-03-03] MEDS: PIPERACIL-TAZO 3.375 GM PREMIX 50 ML IV SCH ×2 (03:49→08:49)
[2017-03-03] MEDS: ACETAMINOPHEN/HYDROcodone 325 MG/10 MG TAB PO PRN ×2 (03:57→14:54)
[2017-03-03] MEDS: RESP: ALBUTEROL 2.5 MG/IPRATROPIUM 0.5 MG NEB (SCH) NEB ×4 (04:00→19:56)
[2017-03-03] MEDS: DEXT 5%-NACL 0.45% 1000 ML INJ 1,000 ML IV SCH ×3 (04:00→20:00)
[2017-03-03] MEDS: KETOROLAC TROMETHAMINE 30 MG/ML (IVP) VIAL IVP SCH ×3 (06:08→21:24)
--- NOTE | 2017-03-03 08:19 | MP ---
cc: YAYAANDREW DATE OF 1945 DATE OF SURGERY 03/02/2017 PREOPERATIVE DIAGNOSIS Wound infection left hip, two weeks status post total hip replacement. POSTOPERATIVE DIAGNOSIS Wound infection left hip two weeks status post total hip replacement, infection confined to the subcutaneous tissue. OPERATIVE PROCEDURE Exploration wound left hip and debridement and irrigation and closure with wound VAC. SURGEON Dr. Lara ANESTHESIA General. TECHNIQUE After induction of general anesthesia, the patient was placed appropriately on the operating table to be able to do an anterior hip replacement. Both lower extremity were thoroughly prepped with alcohol, ChloraPrep and draped in routine fashion for anterior approach with multiple Ioban drapes, etc. The incision was opened and there was very little fluid underneath. In the subcutaneous tissue there was a little bit of devitalized tissue that was debrided. A curette was used to debride. Tissue was sent, three specimens for Gram's stain and culture - aerobic, anaerobic, AFB and fungal. Careful examination revealed that the fascia is intact. We thoroughly and deliberately palpated all these areas and squeezed the left hip from the lateral side, posterior side anteriorly, put it through a range of motion, and there is no indication of any communication between the subfascial space and the subcutaneous space. Therefore, it is felt that this is essentially a superficial wound infection by wound contamination from the outside rather than a deep infection. 6000 cc of saline with gentamicin in it was used to wash out the area. Skin edges were debrided, followed by irrigation, followed by closure with #2 and #1 nylon interrupted vertical mattress sutures. A specialized pre-made wound VAC dressing was applied and made sure that the suction works and then the patient transferred to the recovery room in satisfactory condition. The patient tolerated the well catches TRANSFUSIONS AND COMPLICATIONS None. POSTOPERATIVE CONDITION Satisfactory. PROGNOSIS This man has grown Klebsiella both from the left hip and the urinary tract. They are sensitive to just about everything one can use and the ID specialists are managing that aspect of it. He will quite likely be on this IV antibiotic for about 3-4 weeks. PROGNOSIS For all intents and purposes, the infection appears superficial. There is, however, a small chance that it could be deep and if it is it will become obvious. MD DONNA Cee/SSB /7:24 PM /8:14 AM
[2017-03-03 08:21] LABS: AUTOMATED NEUTROPHIL # 9.9 TH/MM3 (1.8-7.7); BASOPHIL % 0.3 % (0.0-2.0); EOSINOPHIL # 0.1 TH/MM3 (0-0.4); EOSINOPHIL % 0.8 % (0.0-4.0); HEMATOCRIT 23.4 % (39.0-51.0); HEMO FLAGS DIFF FINAL; LYMPH % 12.2 % (9.0-44.0); LYMPHOCYTE # 1.5 TH/MM3 (1.0-4.8); MEAN CELL VOLUME 86.2 FL (80.0-100.0); MEAN CORPUSCULAR HEMOGLOBIN 29.3 PG (27.0-34.0); MONO % 8.5 % (0.0-8.0); NEUT % 78.2 % (16.0-70.0); PLATELET COUNT 367 TH/MM3 (150-450); RED BLOOD COUNT 2.71 MIL/MM3 (4.50-5.90); RED CELL DISTRIBUTION WIDTH 13.2 % (11.6-17.2); WHITE BLOOD COUNT 12.6 TH/MM3 (4.0-11.0)
[2017-03-03 08:41] LABS: BICARBONATE 23.3 MEQ/L (21.0-32.0); POTASSIUM 3.8 MEQ/L (3.5-5.1)
[2017-03-03] MEDS: ENOXAPARIN SODIUM 40 MG/0.4 ML SYRINGE SQ SCH (08:49)
[2017-03-03] MEDS: NYSTAT/DIPHENHY/LIDO MOUTHWASH (Adult) 120ML SWISH-SWAL SCH ×4 (08:49→21:24)
[2017-03-03] MEDS: SODIUM CHLORIDE 0.9% FLUSH 5 ML FLUSH IVF SCH ×2 (08:50→21:00)
[2017-03-03] MEDS: DOCUSATE SODIUM 50 MG/SENNA 8.6 MG TAB PO SCH ×2 (08:50→21:24)
[2017-03-03] MEDS: FAMOTIDINE 20 MG TAB PO SCH ×2 (08:50→21:24)
--- NOTE | 2017-03-03 13:05 | HHI.IDPN ---
Note Infectious Disease Note Patient feels okay. Started getting pain in the left hip after exercises this am. Also notes pain in his back which he says is chronic. Afebrile. Post debridement and wound vac to left hip 03/02. Left hip wound has klebsiella pneumoniae. Urine culture has klebsiella oxytoca. PAST MEDICAL HISTORY 1. Osteoarthritis. 2. Lumbar spondylosis. 3. History of appendectomy. 4. Left hip arthroplasty on 02/16/2017. 5. Right knee steroid injection on 02/16/2017. ALLERGIES NO KNOWN DRUG ALLERGIES. ANTIBIOTICS: Piperacillin / tazobactam. SOCIAL HISTORY Positive tobacco. Positive alcohol. No illicit drugs. The patient is originally from the [facility]. FAMILY HISTORY Noncontributory. OBJECTIVE: Vital Signs Date Time Temp Pulse Resp B/P (MAP) Pulse Ox O2 Delivery O2 Flow Rate FiO2 03/03/17 12:14 98.6 99 20 108/70 (83) 96 03/03/17 10:40 98 03/03/17 08:47 98.4 76 20 90/55 (67) 95 03/03/17 03:58 98.9 96 20 106/61 (76) 98 03/03/17 03:05 96 03/03/17 01:26 98.3 97 18 95/54 (68) 96 03/02/17 22:00 98.9 109 20 115/69 (84) 97 03/02/17 21:47 100 Nasal Cannula 3.00 03/02/17 19:15 97 18 124/64 (84) 97 Nasal Cannula 3 03/02/17 19:00 99 18 126/74 (91) 97 Nasal Cannula 3 03/02/17 18:47 98.1 102 18 137/81 (99) 94 Nasal Cannula 3 Laboratory Tests Test 03/01/17 19:53 03/02/17 02:53 03/03/17 07:51 White Blood Count 16.4 TH/MM3 15.4 TH/MM3 12.6 TH/MM3 Red Blood Count 3.18 MIL/MM3 3.04 MIL/MM3 2.71 MIL/MM3 Hemoglobin 8.9 GM/DL 8.8 GM/DL 7.9 GM/DL Hematocrit 27.2 % 26.3 % 23.4 % Mean Corpuscular Volume 85.6 FL 86.5 FL 86.2 FL Mean Corpuscular Hemoglobin 28.1 PG 28.8 PG 29.3 PG Mean Corpuscular Hemoglobin Concent 32.8 % 33.3 % 34.0 % Red Cell Distribution Width 13.3 % 13.4 % 13.2 % Platelet Count 370 TH/MM3 343 TH/MM3 367 TH/MM3 Mean Platelet Volume 7.1 FL 7.4 FL 7.1 FL Neutrophils (%) (Auto) 84.8 % 78.2 % Lymphocytes (%) (Auto) 7.6 % 12.2 % Monocytes (%) (Auto) 6.9 % 8.5 % Eosinophils (%) (Auto) 0.6 % 0.8 % Basophils (%) (Auto) 0.1 % 0.3 % Neutrophils # (Auto) 13.0 TH/MM3 9.9 TH/MM3 Lymphocytes # (Auto) 1.2 TH/MM3 1.5 TH/MM3 Monocytes # (Auto) 1.1 TH/MM3 1.1 TH/MM3 Eosinophils # (Auto) 0.1 TH/MM3 0.1 TH/MM3 Basophils # (Auto) 0.0 TH/MM3 0.0 TH/MM3 CBC Comment DIFF FINAL DIFF FINAL Differential Comment Laboratory Tests Test 03/01/17 21:55 03/02/17 02:53 03/03/17 07:51 Lactic Acid Level 3.0 mmol/L 1.9 mmol/L Blood Urea Nitrogen 28 MG/DL 35 MG/DL Creatinine 1.44 MG/DL 1.58 MG/DL Random Glucose 160 MG/DL 136 MG/DL Calcium Level 7.6 MG/DL 7.6 MG/DL Sodium Level 132 MEQ/L 132 MEQ/L Potassium Level 3.9 MEQ/L 3.8 MEQ/L Chloride Level 100 MEQ/L 101 MEQ/L Carbon Dioxide Level 24.8 MEQ/L 23.3 MEQ/L Anion Gap 7 MEQ/L 8 MEQ/L Estimat Glomerular Filtration Rate 49 ML/MIN 44 ML/MIN Microbiology Date/Time Source Procedure Growth Status 03/02/17 17:45 Wound Hip Fungal Smear - Final NO FUNGAL ELEMENTS SEEN. Resulted 03/02/17 17:45 Wound Hip Fungal Culture Pending Resulted 03/02/17 17:45 Wound Hip Acid Fast Stain Pending Received 03/02/17 17:45 Wound Hip Mycobacterial Culture Pending Received 03/02/17 17:45 Wound Hip Fungal Smear - Final NO FUNGAL ELEMENTS SEEN. Resulted 03/02/17 17:45 Wound Hip Fungal Culture Pending Resulted 03/02/17 17:45 Wound Hip Acid Fast Stain Pending Received 03/02/17 17:45 Wound Hip Mycobacterial Culture Pending Received 03/02/17 17:45 Wound Hip Fungal Smear - Final NO FUNGAL ELEMENTS SEEN. Resulted 03/02/17 17:45 Wound Hip Fungal Culture Pending Resulted 03/02/17 17:45 Wound Hip Acid Fast Stain Pending Received 03/02/17 17:45 Wound Hip Mycobacterial Culture Pending Received 03/02/17 17:45 Wound Hip Gram Stain - Final Resulted 03/02/17 17:45 Wound Culture - Preliminary Gram Negative Sami Resulted 03/02/17 17:45 Wound Hip Gram Stain - Final Resulted 03/02/17 17:45 Wound Hip Wound Culture - Preliminary NO GROWTH IN 24 HOURS. Resulted 03/02/17 17:45 Wound Hip Gram Stain - Final Resulted 03/02/17 17:45 Wound Hip Wound Culture - Preliminary NO GROWTH IN 24 HOURS. Resulted IMAGING: Hip X-Ray 03/02/17 1902 Signed Impressions: Service Date/Time: Thursday, March 02, 2017 19:40 - CONCLUSION: Total hip prosthesis in good location. There is suspected air projecting over the soft tissues superior to the left femoral neck. Alexi Bailey MD Hip and Pelvis X-Ray 03/01/17 0000 Signed Impressions: Service Date/Time: Wednesday, March 01, 2017 00:00 - CONCLUSION: 1. Left hip arthroplasty. 2. Fracture inferior pubic ramus on the left of indeterminate age. Tim Nava MD Hip and Pelvis X-Ray 03/01/17 0000 Signed Impressions: Service Date/Time: Wednesday, March 01, 2017 00:00 - CONCLUSION: 1. Left hip arthroplasty. 2. Fracture inferior pubic ramus on the left of indeterminate age. Tim Nava MD PHYSICAL EXAMINATION GENERAL: No acute distress. HEENT: No icterus. Oropharynx moist mucosa without visible lesions. NECK: Supple without adenopathy. LUNGS: Clear breath sounds. HEART: Regular S1-S2. No audible murmurs. No audible rubs. No audible gallops. ABDOMEN: Bowel sounds present, soft. Non tender. EXTREMITIES: Left hip vac in place with serous drainage. No erythema at the right knee. SKIN: No diffuse rash. NEUROLOGIC: Nonfocal. PSYCHIATRIC: Calm and cooperative. IMPRESSION 1. Sepsis. 2. Infected left hip total arthroplasty. Klebsiella pneumoniae. 3. Urinary tract infection due to Klebsiella which is sensitive to piperacillin / tazobactam. 4. Leukocytosis secondary to left hip infection. WBC improved. RECOMMENDATIONS 1. Continue piperacillin / tazobactam. 2. Change Zosyn to IV Ceftriaxone. 3. Follow new cultures obtained at surgery. 4. PIC line for IV antibiotics. Treat for 4 weeks since infection appears to be superficial. Vladimir Briceño MD Mar 03, 2017 13:05
--- NOTE | 2017-03-03 13:40 | HHI.PR ---
Subjective Remarks Has a wound VAC. She says he has less pain in his left hip. He is however complaining of some right knee pain. He had steroid injection in the past by his orthopedic doctor. He denies any fever or chills no nausea or vomiting no diarrhea or constipation. Objective Vitals Vital Signs Date Time Temp Pulse Resp B/P (MAP) Pulse Ox O2 Delivery O2 Flow Rate FiO2 03/03/17 12:14 98.6 99 20 108/70 (83) 96 03/03/17 10:40 98 03/03/17 08:47 98.4 76 20 90/55 (67) 95 03/03/17 03:58 98.9 96 20 106/61 (76) 98 03/03/17 03:05 96 03/03/17 01:26 98.3 97 18 95/54 (68) 96 03/02/17 22:00 98.9 109 20 115/69 (84) 97 03/02/17 21:47 100 Nasal Cannula 3.00 03/02/17 19:15 97 18 124/64 (84) 97 Nasal Cannula 3 03/02/17 19:00 99 18 126/74 (91) 97 Nasal Cannula 3 03/02/17 18:47 98.1 102 18 137/81 (99) 94 Nasal Cannula 3 I/O 03/02/17 03/02/17 03/02/17 03/03/17 03/03/17 03/03/17 07:00 15:00 23:00 07:00 15:00 23:00 Intake Total 50 ml 800 ml Output Total 875 ml 100 ml Balance -825 ml 700 ml IV Total 50 ml Other 800 ml Output Urine Total 875 ml Estimated Blood Loss 100 ml # Voids 1 # Bowel Movements 1 Result Diagram: 03/03/17 0751 03/03/17 0751 Objective Remarks GENERAL: This is a well-nourished, well-developed patient, pursed lip breathing , and sob at rest CARDIOVASCULAR: Regular rate and rhythm without murmurs, gallops, or rubs. RESPIRATORY: Clear to auscultation. Breath sounds equal bilaterally. No wheezes , rales, or rhonchi. GASTROINTESTINAL: Abdomen soft, non-tender, nondistended. Normal active bowel sounds MUSCULOSKELETAL: Extremities without clubbing, cyanosis, or edema. NEURO: Alert & Oriented x4 to person, place, time, situation. Moves all ext x4 Procedures Wound infection left hip two weeks status post total hip replacement, infection confined to the subcutaneous tissue S/P Exploration wound left hip and debridement and irrigation and closure with wound VAC by Dr Lara. A/P Problem List: (1) Sepsis ICD Code: A41.9 - Sepsis, unspecified organism (2) UTI (urinary tract infection) ICD Code: N39.0 - Urinary tract infection, site not specified (3) S/P total hip arthroplasty ICD Code: Z96.649 - Presence of unspecified artificial hip joint Status: Acute (4) SHANTA (acute kidney injury) ICD Code: N17.9 - Acute kidney failure, unspecified (5) Hyperkalemia ICD Code: E87.5 - Hyperkalemia (6) SOB (shortness of breath) ICD Code: R06.02 - Shortness of breath Assessment and Plan Sepsis. Left hip wound infection s/p total hip replacement. Possible source hip (gram neg chema in hip) v uti follow blood cultures cont iv zosyn Wound infection left hip two weeks status post total hip replacement, infection confined to the subcutaneous tissue S/P Exploration wound left hip and debridement and irrigation and closure with wound VAC by Dr Lara. Infectious disease also following appreciate recommendations UTI (urinary tract infection) klebsiella Oxytoca Cont zosyn S/P total hip arthroplasty s/p TERRI and right knee injection on 02/16/17 Continue pain management SHANTA (acute kidney injury) fluid challenge follow and avoid nephrotoxins treat uti If no improvement will check urine ultrasound Hyperkalemia We'll add Bumex, follow repeat values OB (shortness of breath) Patient with a history of tobacco dependency tachypnea and dyspnea Continue bronchodilators, steroid prescribed Follow-up after Bumex (weight up 10 kg since admission) Echo cardiac impending/abnormal EKG DVT prophylaxis per surgeon Discussed with the patient, nurse Discharge plan. IV antibiotics with sepsis, also plans for exploratory surgery. Workup in progress. Discharge when improved and cleared by consultants. Angela Del Rosario MD Mar 03, 2017 13:40
[2017-03-03] MEDS: cefTRIAXone INJ 2,000 MG in SODIUM CHLORIDE 0.9% INJ 100 ML IV SCH (14:00)
--- NOTE | 2017-03-03 15:07 | PD.ORT.PN ---
Subjective Post Op Day #: not much pain left hip, mainly pain right kknee on standing and walking Subjective Remarks As above Range of Motion Able to flex hips and knees actively Objective Vitals Last 72 hours Impressions Hip X-Ray 03/02/17 1902 Signed Impressions: Service Date/Time: Thursday, March 02, 2017 19:40 - CONCLUSION: Total hip prosthesis in good location. There is suspected air projecting over the soft tissues superior to the left femoral neck. Alexi Bailey MD Hip and Pelvis X-Ray 03/01/17 0000 Signed Impressions: Service Date/Time: Wednesday, March 01, 2017 00:00 - CONCLUSION: 1. Left hip arthroplasty. 2. Fracture inferior pubic ramus on the left of indeterminate age. Tim Nava MD Microbiology Date/Time Source Procedure Growth Status 03/02/17 17:45 Wound Hip Fungal Smear - Final NO FUNGAL ELEMENTS SEEN. Resulted 03/02/17 17:45 Wound Hip Fungal Culture Pending Resulted Vital Signs Date Time Temp Pulse Resp B/P (MAP) Pulse Ox O2 Delivery O2 Flow Rate FiO2 03/03/17 12:14 98.6 99 20 108/70 (83) 96 03/03/17 10:40 98 03/03/17 08:47 98.4 76 20 90/55 (67) 95 03/03/17 03:58 98.9 96 20 106/61 (76) 98 03/03/17 03:05 96 03/03/17 01:26 98.3 97 18 95/54 (68) 96 03/02/17 22:00 98.9 109 20 115/69 (84) 97 03/02/17 21:47 100 Nasal Cannula 3.00 03/02/17 19:15 97 18 124/64 (84) 97 Nasal Cannula 3 03/02/17 19:00 99 18 126/74 (91) 97 Nasal Cannula 3 03/02/17 18:47 98.1 102 18 137/81 (99) 94 Nasal Cannula 3 I/O 03/02/17 03/02/17 03/02/17 03/03/17 03/03/17 03/03/17 07:00 15:00 23:00 07:00 15:00 23:00 Intake Total 50 ml 800 ml Output Total 875 ml 100 ml Balance -825 ml 700 ml IV Total 50 ml Other 800 ml Output Urine Total 875 ml Estimated Blood Loss 100 ml # Voids 1 # Bowel Movements 1 Result Diagram: 03/03/17 0751 03/03/17 0751 Imaging Last 24 hours Impressions Hip X-Ray 03/02/17 1902 Signed Impressions: Service Date/Time: Thursday, March 02, 2017 19:40 - CONCLUSION: Total hip prosthesis in good location. There is suspected air projecting over the soft tissues superior to the left femoral neck. Alexi Bailey MD Objective Remarks Awake, in bed, cheerful, son in room Dressings intact, VAC functioning. Assessment & Plan Ortho Post Op Day #: 1 Problem List: Assessment and Plan 1 day post I and D superficial infection left hip On Zosyn for klebsiella To inpatient rehab vs SNF tomorrow To have IV zosyn for total of 4 weeks Carter Lara MD Mar 03, 2017 15:07
[2017-03-04] VITALS (9 sets, daily range): BP systolic 95–171; BP diastolic 51–86; PULSE 87–107; RESP 18–20; TEMP 97.9–102.7; O2SAT 91–97
[2017-03-04] MEDS: ACETAMINOPHEN/HYDROcodone 325 MG/10 MG TAB PO PRN (02:07)
[2017-03-04] MEDS: RESP: ALBUTEROL 2.5 MG/IPRATROPIUM 0.5 MG NEB (SCH) NEB ×4 (03:52→20:02)
[2017-03-04] MEDS: DEXT 5%-NACL 0.45% 1000 ML INJ 1,000 ML IV SCH ×3 (04:00→19:34)
[2017-03-04] MEDS: KETOROLAC TROMETHAMINE 30 MG/ML (IVP) VIAL IVP SCH ×2 (06:28→18:57)
--- NOTE | 2017-03-04 07:44 | PD.ORT.PN ---
Subjective Pain Scale: no pain left hip, most pain right knee oc on weight bearing Subjective Remarks As above Objective Vitals Vital Signs Date Time Temp Pulse Resp B/P (MAP) Pulse Ox O2 Delivery O2 Flow Rate FiO2 03/04/17 06:11 98.9 93 18 171/61 (97) 94 03/04/17 01:20 98.6 95 18 102/59 (73) 94 03/03/17 22:00 105 03/03/17 20:00 100.0 102 18 135/65 (88) 94 03/03/17 20:00 95 03/03/17 17:03 98.7 95 20 117/75 (89) 96 03/03/17 12:14 98.6 99 20 108/70 (83) 96 03/03/17 10:40 98 03/03/17 08:47 98.4 76 20 90/55 (67) 95 I/O 03/03/17 03/03/17 03/03/17 03/04/17 03/04/17 03/04/17 07:00 15:00 23:00 07:00 15:00 23:00 Intake Total 660 ml Output Total 650 ml 500 ml Balance 10 ml -500 ml Intake Oral 660 ml Output Urine Total 650 ml 500 ml # Voids 1 # Bowel Movements 1 0 Result Diagram: 03/03/17 0751 03/03/17 0751 Imaging Last 24 hours Impressions Hip X-Ray 03/02/17 190 Signed Impressions: Service Date/Time: Thursday, March 02, 2017 19:40 - CONCLUSION: Total hip prosthesis in good location. There is suspected air projecting over the soft tissues superior to the left femoral neck. Alexi Bailey MD Objective Remarks Awake, in bed, cheerful, son in room Dressings intact, VAC functioning. Assessment & Plan Ortho Post Op Day #: 2 Problem List: Assessment and Plan 2 day post I and D superficial infection left hip On ceftriaxone for klebsiella To inpatient rehab vs SNF tomorrow To discuss further plans with Dr. Briceño. Should repeat UA ? Carter Lara MD Mar 04, 2017 07:44
--- NOTE | 2017-03-04 08:12 | ECHRPT ---
Indication: shortness of breath CONCLUSIONS Mild concentric left ventricular hypertrophy. The right ventricular size is normal. The right ventricular systoilc function is normal. The interatrial septum not well visualized. The aortic root and proximal ascending aorta are not well visualized. No mitral valve regurgitation. The aortic valve is not well visualized. The tricuspid valve is not well visualized. The pulmonary valve is not well visualized. The inferior vena cava was not well visualized. BP: 109 / 66 HR: Rhythm: MEASUREMENTS (Male / Female) Normal Values Technical Quality:Technically difficult study 2D ECHO LV Diastolic Diameter PLAX 4.7 cm 4.2 - 5.9 / 3.9 - 5.3 cm LV Systolic Diameter PLAX 3.5 cm IVS Diastolic Thickness 1.6 cm 0.6 - 1.0 / 0.6 - 0.9 cm LVPW Diastolic Thickness 1.4 cm 0.6 - 1.0 / 0.6 - 0.9 cm LV Relative Wall Thickness 0.6 RV Internal Dim ED PLAX 3.3 cm M-MODE Aortic Root Diameter MM 3.6 cm LA Systolic Diameter MM 4.2 cm LA Ao Ratio MM 1.2 AV Cusp Separation MM 2.1 cm DOPPLER Mitral E Point Velocity 71.9 cm/s Mitral A Point Velocity 95.0 cm/s Mitral E to A Ratio 0.8 LV E' Lateral Velocity 13.8 cm/s Mitral E to LV E' Lateral Ratio 5.2 FINDINGS LEFT VENTRICLE Mild concentric left ventricular hypertrophy. The left ventricular systolic function is normal with an estimated ejection fraction in the range of 60-65%. RIGHT VENTRICLE The right ventricular size is normal. The right ventricular systoilc function is normal. LEFT ATRIUM The left atrial size is normal. RIGHT ATRIUM The right atrial size is normal. ATRIAL SEPTUM The interatrial septum not well visualized. AORTA The aortic root and proximal ascending aorta are not well visualized. MITRAL VALVE No mitral valve regurgitation. AORTIC VALVE The aortic valve is not well visualized. TRICUSPID VALVE The tricuspid valve is not well visualized. PULMONARY VALVE The pulmonary valve is not well visualized. VESSELS The inferior vena cava was not well visualized. PERICARDIUM No pericardial effusion. Beny Grijalva MD (Electronically Signed) Final Date:04 March 2017 08:11
[2017-03-04 08:41] LABS: BICARBONATE 26.7 MEQ/L (21.0-32.0); POTASSIUM 4.2 MEQ/L (3.5-5.1)
[2017-03-04] MEDS: SODIUM CHLORIDE 0.9% FLUSH 5 ML FLUSH IVF SCH ×2 (09:00→21:00)
[2017-03-04 09:53] LABS: AUTOMATED NEUTROPHIL # 9.3 TH/MM3 (1.8-7.7); BASOPHIL # 0.1 TH/MM3 (0-0.2); BASOPHIL % 0.4 % (0.0-2.0); EOSINOPHIL # 0.2 TH/MM3 (0-0.4); EOSINOPHIL % 1.8 % (0.0-4.0); HEMATOCRIT 22.8 % (39.0-51.0); HEMO FLAGS DIFF FINAL; LYMPH % 12.5 % (9.0-44.0); LYMPHOCYTE # 1.5 TH/MM3 (1.0-4.8); MEAN CELL VOLUME 86.2 FL (80.0-100.0); MEAN CORPUSCULAR HEMOGLOBIN 29.3 PG (27.0-34.0); MEAN CORPUSCULAR HGB CONC 33.9 % (32.0-36.0); MONO % 9.9 % (0.0-8.0); NEUT % 75.4 % (16.0-70.0); PLATELET COUNT 398 TH/MM3 (150-450); RED BLOOD COUNT 2.65 MIL/MM3 (4.50-5.90); RED CELL DISTRIBUTION WIDTH 13.1 % (11.6-17.2); WHITE BLOOD COUNT 12.3 TH/MM3 (4.0-11.0)
[2017-03-04] MEDS: DOCUSATE SODIUM 50 MG/SENNA 8.6 MG TAB PO SCH ×2 (10:18→23:04)
[2017-03-04] MEDS: FAMOTIDINE 20 MG TAB PO SCH ×2 (10:18→23:04)
[2017-03-04] MEDS: NYSTAT/DIPHENHY/LIDO MOUTHWASH (Adult) 120ML SWISH-SWAL SCH ×4 (10:18→21:00)
[2017-03-04] MEDS: ENOXAPARIN SODIUM 40 MG/0.4 ML SYRINGE SQ SCH (10:18)
[2017-03-04] MEDS ORDERED: FAMO20TA2 PO (10:40)
[2017-03-04] MEDS ORDERED: KETO30IN3 IVP (10:40)
[2017-03-04] MEDS ORDERED: MAGICADU2 SWISH-SWAL (10:40)
[2017-03-04] MEDS ORDERED: CEFT2INJ2 IV (10:46)
--- NOTE | 2017-03-04 11:03 | HHI.DS ---
Discharge Summary Admission Date Feb 28, 2017 at 22:25 Discharge Date: Mar 04, 2017 Admitting Diagnosis Sepsis, UTI . (1) Sepsis ICD Code: A41.9 - Sepsis, unspecified organism (2) UTI (urinary tract infection) ICD Code: N39.0 - Urinary tract infection, site not specified (3) S/P total hip arthroplasty ICD Code: Z96.649 - Presence of unspecified artificial hip joint Status: Acute (4) SHANTA (acute kidney injury) ICD Code: N17.9 - Acute kidney failure, unspecified (5) Hyperkalemia ICD Code: E87.5 - Hyperkalemia (6) SOB (shortness of breath) ICD Code: R06.02 - Shortness of breath Procedures Wound infection left hip two weeks status post total hip replacement, infection confined to the subcutaneous tissue S/P Exploration wound left hip and debridement and irrigation and closure with wound VAC by Dr Lara. Brief History - From Admission Mr. Tran is a 71-year-old male with a history of osteoarthritis and lumbar spondylosis who is status post left total hip replacement through anterior approach on 02/16/[address] Lara who was discharged after hospitalization to [facility] and developed symptoms of sepsis while there. Hospitalists were consulted to manage sepsis and transferred patient to [facility] for further medical management. The patient was seen in his room at [facility]. He reported feeling "unwell" and further describe this as feeling tired and fatigued. He reports that his feet feel weak bilaterally and his left hip hurts with movement only. The pain is described as sharp and severe when it occurs. Nursing had reported to me some bloody and purulent discharge from the left anterior hip replacement surgical site along with a temperature of 103.2. I inspected the area and the wound edges are well approximated and covered with Steri-Strips. There is some serosanguineous drainage noted on the dressing but no overt purulent or bloody discharge noted at the time of my exam. The patient denies any chills, chest pain, palpitations, shortness of breath, nausea, vomiting, diarrhea, dysuria, or hematuria. CBC/BMP: 03/04/17 0727 03/04/17 0727 Significant Findings Laboratory Tests Test 03/01/17 19:53 03/01/17 21:55 03/02/17 02:53 03/03/17 07:51 White Blood Count 16.4 TH/MM3 (4.0-11.0) 15.4 TH/MM3 (4.0-11.0) 12.6 TH/MM3 (4.0-11.0) Red Blood Count 3.18 MIL/MM3 (4.50-5.90) 3.04 MIL/MM3 (4.50-5.90) 2.71 MIL/MM3 (4.50-5.90) Hemoglobin 8.9 GM/DL (13.0-17.0) 8.8 GM/DL (13.0-17.0) 7.9 GM/DL (13.0-17.0) Hematocrit 27.2 % (39.0-51.0) 26.3 % (39.0-51.0) 23.4 % (39.0-51.0) Lactic Acid Level 3.0 mmol/L (0.4-2.0) Neutrophils (%) (Auto) 84.8 % (16.0-70.0) 78.2 % (16.0-70.0) Lymphocytes (%) (Auto) 7.6 % (9.0-44.0) Neutrophils # (Auto) 13.0 TH/MM3 (1.8-7.7) 9.9 TH/MM3 (1.8-7.7) Monocytes # (Auto) 1.1 TH/MM3 (0-0.9) 1.1 TH/MM3 (0-0.9) Blood Urea Nitrogen 28 MG/DL (7-18) 35 MG/DL (7-18) Creatinine 1.44 MG/DL (0.60-1.30) 1.58 MG/DL (0.60-1.30) Random Glucose 160 MG/DL (74-106) 136 MG/DL (74-106) Calcium Level 7.6 MG/DL (8.5-10.1) 7.6 MG/DL (8.5-10.1) Sodium Level 132 MEQ/L (136-145) 132 MEQ/L (136-145) Estimat Glomerular Filtration Rate 49 ML/MIN (>89) 44 ML/MIN (>89) Monocytes (%) (Auto) 8.5 % (0.0-8.0) Test 03/04/17 07:27 White Blood Count 12.3 TH/MM3 (4.0-11.0) Red Blood Count 2.65 MIL/MM3 (4.50-5.90) Hemoglobin 7.7 GM/DL (13.0-17.0) Hematocrit 22.8 % (39.0-51.0) Neutrophils (%) (Auto) 75.4 % (16.0-70.0) Monocytes (%) (Auto) 9.9 % (0.0-8.0) Neutrophils # (Auto) 9.3 TH/MM3 (1.8-7.7) Monocytes # (Auto) 1.2 TH/MM3 (0-0.9) Blood Urea Nitrogen 33 MG/DL (7-18) Calcium Level 7.9 MG/DL (8.5-10.1) Sodium Level 133 MEQ/L (136-145) Estimat Glomerular Filtration Rate 63 ML/MIN (>89) Imaging Last Impressions Hip X-Ray 03/02/17 1902 Signed Impressions: Service Date/Time: Thursday, March 02, 2017 19:40 - CONCLUSION: Total hip prosthesis in good location. There is suspected air projecting over the soft tissues superior to the left femoral neck. Alexi Bailey MD Hip and Pelvis X-Ray 03/01/17 0000 Signed Impressions: Service Date/Time: Wednesday, March 01, 2017 00:00 - CONCLUSION: 1. Left hip arthroplasty. 2. Fracture inferior pubic ramus on the left of indeterminate age. Tim Nava MD PE at Discharge GENERAL: This is a well-nourished, well-developed patient, pursed lip breathing , and sob at rest CARDIOVASCULAR: Regular rate and rhythm without murmurs, gallops, or rubs. RESPIRATORY: Clear to auscultation. Breath sounds equal bilaterally. No wheezes , rales, or rhonchi. GASTROINTESTINAL: Abdomen soft, non-tender, nondistended. Normal active bowel sounds MUSCULOSKELETAL: Extremities without clubbing, cyanosis, or edema. NEURO: Alert & Oriented x4 to person, place, time, situation. Moves all ext x4 Pt update on day of discharge The patient is in the chair he appears in not acute distress at this time. Says pain is controlled by medications. Denies any fever last chills. No nausea or vomiting no diarrhea or constipation is eating well. Plan for PICC line or midline today Dr. Brenna colindres also for IV antibiotics administration Hospital Course Sepsis. Left hip wound infection s/p total hip replacement. Possible source hip (gram neg chema in hip) v uti follow blood cultures cont iv zosyn Wound infection left hip two weeks status post total hip replacement, infection confined to the subcutaneous tissue S/P Exploration wound left hip and debridement and irrigation and closure with wound VAC by Dr Lara. Infectious disease also following appreciate recommendations UTI (urinary tract infection) klebsiella Oxytoca Cont zosyn S/P total hip arthroplasty s/p TERRI and right knee injection on 02/16/17 Continue pain management SHANTA (acute kidney injury) fluid challenge follow and avoid nephrotoxins treat uti If no improvement will check urine ultrasound Hyperkalemia We'll add Bumex, follow repeat values OB (shortness of breath) Patient with a history of tobacco dependency tachypnea and dyspnea Continue bronchodilators, steroid prescribed Follow-up after Bumex (weight up 10 kg since admission) Echo cardiac impending/abnormal EKG DVT prophylaxis per surgeon Discussed with the patient, nurse Discharge plan. IV antibiotics with sepsis, also plans for exploratory surgery. Workup in progress. Discharge when improved and cleared by consultants. Patient improved. Midline placed 03/04/17 for IV antibiotics administration. Continue at rehab Ceftriaxone 2 grams IV q 24 hours Stop Treatment: Mar 30, 2017. Wound care also to follow for wound vac. Discharged in stable condition to follow up as OP with PCP and consultants. Pt Condition on Discharge: Stable Discharge Disposition: Rehab Inpatient Discharge Time: > 30 minutes Discharge Instructions DIET: Follow Instructions for: Heart Healthy Diet, Weight Management Activities you can perform: Weight Bearing as Monica Activities to Avoid: Bathing, Shower, Driving Follow up Referrals: Orthopedics - 2 Weeks with Carter Lara MD PCP Follow-up - 2-3 Days New Medications: Ceftriaxone Inj (Ceftriaxone Inj) 2 Gm/50 Ml Bagp 2 GM IV Q24H for Infection for 30 Days, BAG 0 Refills Famotidine (Famotidine) 20 Mg Tab 20 MG PO BID for Reflux, #60 TAB Ketorolac Tromethamine (Ketorolac Tromethamine) 30 Mg/Ml (1 Ml) Vial 30 MG IVP Q8HR for Pain Management, #30 VIAL Hlntezop-Xyubwbjgokncnyq-Wyjyhiojj Liq (Magic Mouthwash Adult Liq) 120 Ml Susp 5 ML SWISH-SWAL QID for Infection, #120 ML Continued Medications: Enoxaparin Inj (Lovenox Inj) 40 Mg/0.4 Ml Syr 40 MG SQ Q24H for VTE prophylaxis MDD 40 for 14 Days, #14 INJECTION Hydrocodone/Acetaminophen (Hydrocodone-Acetamin 10-325 mg) 10 Mg-325 Mg Tablet 1-2 TAB PO Q4H PRN for pain, #30 [Albuterol-Ipratropium Neb] () 1 AMPULE NEBU 1 AMPULE NEB Q4HR NEB PRN for DYSPNEA for 1 Day Discontinued Medications: Pantoprazole (Protonix) 40 Mg Tab 40 MG PO DAILY for Reflux for 28 Days, #28 TAB 0 Refills Piperacillin-Tazobactam Inj (Zosyn Inj) 4.5 Gram Inj 4.5 GM IV Q8H for Infection for 7 Days, BAG 0 Refills Angela Del Rosario MD Mar 04, 2017 11:03
--- NOTE | 2017-03-04 12:19 | HHI.IDPN ---
Note Infectious Disease Note Patient complains of pain in the back and left hip 11/25. Afebrile. Says he feels a little chilled. Post debridement and wound vac to left hip. Left hip surgical wound culture has klebsiella pneumoniae. Urine culture has klebsiella oxytoca. Plans in place for transfer to [place]. PAST MEDICAL HISTORY 1. Osteoarthritis. 2. Lumbar spondylosis. 3. History of appendectomy. 4. Left hip arthroplasty on 02/16/2017. 5. Right knee steroid injection on 02/16/2017. ALLERGIES NO KNOWN DRUG ALLERGIES. ANTIBIOTICS: Piperacillin / tazobactam. SOCIAL HISTORY Positive tobacco. Positive alcohol. No illicit drugs. The patient is originally from the [facility]. FAMILY HISTORY Noncontributory. OBJECTIVE: Laboratory Tests Test 03/03/17 07:51 03/04/17 07:27 White Blood Count 12.6 TH/MM3 12.3 TH/MM3 Red Blood Count 2.71 MIL/MM3 2.65 MIL/MM3 Hemoglobin 7.9 GM/DL 7.7 GM/DL Hematocrit 23.4 % 22.8 % Mean Corpuscular Volume 86.2 FL 86.2 FL Mean Corpuscular Hemoglobin 29.3 PG 29.3 PG Mean Corpuscular Hemoglobin Concent 34.0 % 33.9 % Red Cell Distribution Width 13.2 % 13.1 % Platelet Count 367 TH/MM3 398 TH/MM3 Mean Platelet Volume 7.1 FL 7.1 FL Neutrophils (%) (Auto) 78.2 % 75.4 % Lymphocytes (%) (Auto) 12.2 % 12.5 % Monocytes (%) (Auto) 8.5 % 9.9 % Eosinophils (%) (Auto) 0.8 % 1.8 % Basophils (%) (Auto) 0.3 % 0.4 % Neutrophils # (Auto) 9.9 TH/MM3 9.3 TH/MM3 Lymphocytes # (Auto) 1.5 TH/MM3 1.5 TH/MM3 Monocytes # (Auto) 1.1 TH/MM3 1.2 TH/MM3 Eosinophils # (Auto) 0.1 TH/MM3 0.2 TH/MM3 Basophils # (Auto) 0.0 TH/MM3 0.1 TH/MM3 CBC Comment DIFF FINAL DIFF FINAL Differential Comment Laboratory Tests Test 03/03/17 07:51 03/04/17 07:27 Blood Urea Nitrogen 35 MG/DL 33 MG/DL Creatinine 1.58 MG/DL 1.15 MG/DL Random Glucose 136 MG/DL 89 MG/DL Calcium Level 7.6 MG/DL 7.9 MG/DL Sodium Level 132 MEQ/L 133 MEQ/L Potassium Level 3.8 MEQ/L 4.2 MEQ/L Chloride Level 101 MEQ/L 100 MEQ/L Carbon Dioxide Level 23.3 MEQ/L 26.7 MEQ/L Anion Gap 8 MEQ/L 6 MEQ/L Estimat Glomerular Filtration Rate 44 ML/MIN 63 ML/MIN Microbiology Date/Time Source Procedure Growth Status 03/02/17 17:45 Wound Hip Fungal Smear - Final NO FUNGAL ELEMENTS SEEN. Resulted 03/02/17 17:45 Wound Hip Fungal Culture Pending Resulted 03/02/17 17:45 Wound Hip Acid Fast Stain Pending Received 03/02/17 17:45 Wound Hip Mycobacterial Culture Pending Received 03/02/17 17:45 Wound Hip Fungal Smear - Final NO FUNGAL ELEMENTS SEEN. Resulted 03/02/17 17:45 Wound Hip Fungal Culture Pending Resulted 03/02/17 17:45 Wound Hip Acid Fast Stain Pending Received 03/02/17 17:45 Wound Hip Mycobacterial Culture Pending Received 03/02/17 17:45 Wound Hip Fungal Smear - Final NO FUNGAL ELEMENTS SEEN. Resulted 03/02/17 17:45 Wound Hip Fungal Culture Pending Resulted 03/02/17 17:45 Wound Hip Acid Fast Stain Pending Received 03/02/17 17:45 Wound Hip Mycobacterial Culture Pending Received 03/02/17 17:45 Wound Hip Gram Stain - Final Complete 03/02/17 17:45 Wound Culture - Final Klebsiella Pneumoniae Complete 03/02/17 17:45 Wound Hip Gram Stain - Final Resulted 03/02/17 17:45 Wound Hip Wound Culture - Preliminary NO GROWTH IN 48 HOURS. Resulted 03/02/17 17:45 Wound Hip Gram Stain - Final Resulted 03/02/17 17:45 Wound Hip Wound Culture - Preliminary NO GROWTH IN 48 HOURS. Resulted IMAGING: Hip X-Ray 03/02/17 1902 Signed Impressions: Service Date/Time: Thursday, March 02, 2017 19:40 - CONCLUSION: Total hip prosthesis in good location. There is suspected air projecting over the soft tissues superior to the left femoral neck. Alexi Bailey MD Hip and Pelvis X-Ray 03/01/17 0000 Signed Impressions: Service Date/Time: Wednesday, March 01, 2017 00:00 - CONCLUSION: 1. Left hip arthroplasty. 2. Fracture inferior pubic ramus on the left of indeterminate age. Tim Nava MD Hip and Pelvis X-Ray 03/01/17 0000 Signed Impressions: Service Date/Time: Wednesday, March 01, 2017 00:00 - CONCLUSION: 1. Left hip arthroplasty. 2. Fracture inferior pubic ramus on the left of indeterminate age. Tim Nava MD PHYSICAL EXAMINATION GENERAL: No acute distress. HEENT: No icterus. Oropharynx moist mucosa without visible lesions. NECK: Supple without adenopathy. LUNGS: Clear. HEART: Regular S1-S2. No audible murmurs. No audible rubs. No audible gallops. ABDOMEN: Bowel sounds present, soft. Non tender. EXTREMITIES: Left hip vac in place with serous drainage. SKIN: No diffuse rash. NEUROLOGIC: Nonfocal. PSYCHIATRIC: Calm and cooperative. IMPRESSION 1. Sepsis. 2. Infected left hip total arthroplasty. Klebsiella pneumoniae. 3. Urinary tract infection due to Klebsiella which is sensitive to piperacillin / tazobactam. 4. Leukocytosis secondary to left hip infection. WBC improved. RECOMMENDATIONS Continue Ceftriaxone IV X 4 weeks. I have written orders on Infusion form. Vladimir Briceño MD Mar 04, 2017 12:19
--- NOTE | 2017-03-04 12:21 | HHI.FF ---
Infusion Therapy Location of Infusion Therapy: [facility] Infusion Therapy Order Patient Information Patient Weight 150.1 kg Diagnosis: Diagnosis Infected let hip. 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 [] May leave port accessed during therapy. [] May leave peripheral site accessed for duration of therapy. [x] If patient has SOB or respiratory distress, check oxygen saturation. If less than 90% or clinical signs of respiratory distress, administer oxygen at 2 L/min. via nasal cannula and notify physician. [x] Anaphylaxis/Reaction orders: * Stop infusion. * Keep IV line open with saline flush. * Notify physician. * Monitor vital signs every 15 minutes until symptoms resolve. * Check Oxygen saturation; Oxygen at 2 L/min. via nasal cannula if less than 90% or clinical signs of respiratory distress. * Administer diphenhydramine (Benadryl) 25 mg IV STAT, (unless patient has received as pre-med). May repeat once, if necessary. * Solu-Cortef 250 mg IVP over 30-60 seconds, use 100 mg vials for each dissolution. * Epinephrine (1mg/1 ml) 0.3 mg subcutaneously or IVP now with any signs of respiratory distress. * Check with physician for new additional pre-med orders if patient is re- challenged or re-treated. [x] May remove PICC line when treatment complete, after confirming with Physician. [x] If the patient is admitted to the hospital, the ED, or transferred via [facility] , complete transfer form including medication reconciliation order sheet. Laboratory Tests Weekly Labs: Vladimir Kasper MD Mar 04, 2017 12:21
[2017-03-04] MEDS: cefTRIAXone INJ 2,000 MG in SODIUM CHLORIDE 0.9% INJ 100 ML IV SCH (18:58)
[2017-03-04 19:41] LABS: BLOOD, URINE NEG (NEG); GLUCOSE,URINE NEG (NEG); KETONE, URINE NEG (NEG); NITRITE,URINE NEG (NEG); URINE COLOR YELLOW (YELLW/STRAW)
[2017-03-04 20:04] LABS: BACTERIA, URINE RARE /hpf; SQUAMOUS EPITHELIAL CELL URINE 0-5 /hpf (0-5); WBC, URINE 0-2 /hpf (0-5)
[2017-03-04 20:05] LABS: COMMENT (UR) CULT NOT INDICATED; CULTURE IF INDICATED CULT NOT INDICATED
[2017-03-05] VITALS (7 sets, daily range): BP systolic 106–132; BP diastolic 56–89; PULSE 72–92; RESP 16–20; TEMP 98.4–100.3; O2SAT 95–96
[2017-03-05] MEDS: RESP: ALBUTEROL 2.5 MG/IPRATROPIUM 0.5 MG NEB (SCH) NEB (03:13)
[2017-03-05] MEDS: ACETAMINOPHEN/HYDROcodone 325 MG/10 MG TAB PO PRN ×2 (03:19→09:47)
[2017-03-05] MEDS: DEXT 5%-NACL 0.45% 1000 ML INJ 1,000 ML IV SCH ×3 (03:49→20:00)
[2017-03-05] MEDS: FAMOTIDINE 20 MG TAB PO SCH ×2 (09:00→21:00)
[2017-03-05] MEDS: NYSTAT/DIPHENHY/LIDO MOUTHWASH (Adult) 120ML SWISH-SWAL SCH ×4 (09:00→21:00)
[2017-03-05] MEDS: SODIUM CHLORIDE 0.9% FLUSH 5 ML FLUSH IVF SCH ×2 (09:00→21:00)
[2017-03-05] MEDS: ENOXAPARIN SODIUM 40 MG/0.4 ML SYRINGE SQ SCH (09:47)
[2017-03-05] MEDS: DOCUSATE SODIUM 50 MG/SENNA 8.6 MG TAB PO SCH ×2 (09:47→21:00)
--- NOTE | 2017-03-05 09:54 | HHI.PR ---
Subjective Remarks Late entry paticorbin herrera seen on 03/04/17 The patient is in the chair he appears in not acute distress at this time. Says pain is controlled by medications. Denies any fever last chills. No nausea or vomiting no diarrhea or constipation is eating well. Plan for PICC line or midline today Dr. Briceño midline also for IV antibiotics administration. Objective Vitals Vital Signs Date Time Temp Pulse Resp B/P (MAP) Pulse Ox O2 Delivery O2 Flow Rate FiO2 03/05/17 08:00 98.7 72 20 106/64 (78) 96 03/05/17 03:24 99.4 82 16 132/69 (90) 03/05/17 00:30 98.4 89 19 110/56 (74) 95 03/04/17 20:45 97.9 95 19 107/54 (71) 94 03/04/17 20:40 101 03/04/17 20:04 91 21 03/04/17 16:00 102.7 107 20 155/86 (109) 94 03/04/17 13:07 98.4 97 20 128/58 (81) 93 I/O 03/04/17 03/04/17 03/04/17 03/05/17 03/05/17 03/05/17 07:00 15:00 23:00 07:00 15:00 23:00 Intake Total 600 ml 500 ml Output Total 500 ml 200 ml 0 ml 500 ml Balance -500 ml -200 ml 600 ml 0 ml Intake Oral 600 ml 500 ml Output Urine Total 500 ml 200 ml 0 ml 500 ml # Voids 3 # Bowel Movements 0 0 0 Result Diagram: 03/04/17 0727 03/04/17726 Imaging Last Impressions Hip X-Ray 03/02/17 190 Signed Impressions: Service Date/Time: Thursday, March 02, 2017 19:40 - CONCLUSION: Total hip prosthesis in good location. There is suspected air projecting over the soft tissues superior to the left femoral neck. Alexi Bailey MD Hip and Pelvis X-Ray 03/01/17 0000 Signed Impressions: Service Date/Time: Wednesday, March 01, 2017 00:00 - CONCLUSION: 1. Left hip arthroplasty. 2. Fracture inferior pubic ramus on the left of indeterminate age. Tim Nava MD Objective Remarks GENERAL: This is a well-nourished, well-developed patient, pursed lip breathing , and sob at rest CARDIOVASCULAR: Regular rate and rhythm without murmurs, gallops, or rubs. RESPIRATORY: Clear to auscultation. Breath sounds equal bilaterally. No wheezes , rales, or rhonchi. GASTROINTESTINAL: Abdomen soft, non-tender, nondistended. Normal active bowel sounds MUSCULOSKELETAL: Extremities without clubbing, cyanosis, or edema. NEURO: Alert & Oriented x4 to person, place, time, situation. Moves all ext x4 Procedures Wound infection left hip two weeks status post total hip replacement, infection confined to the subcutaneous tissue S/P Exploration wound left hip and debridement and irrigation and closure with wound VAC by Dr Lara. A/P Problem List: (1) Sepsis ICD Code: A41.9 - Sepsis, unspecified organism (2) UTI (urinary tract infection) ICD Code: N39.0 - Urinary tract infection, site not specified (3) S/P total hip arthroplasty ICD Code: Z96.649 - Presence of unspecified artificial hip joint Status: Acute (4) SHANTA (acute kidney injury) ICD Code: N17.9 - Acute kidney failure, unspecified (5) Hyperkalemia ICD Code: E87.5 - Hyperkalemia (6) SOB (shortness of breath) ICD Code: R06.02 - Shortness of breath Assessment and Plan Sepsis. Left hip wound infection s/p total hip replacement. Possible source hip (gram neg chema in hip) v uti follow blood cultures cont IV zosyn Wound infection left hip two weeks status post total hip replacement, infection confined to the subcutaneous tissue S/P Exploration wound left hip and debridement and irrigation and closure with wound VAC by Dr Lara. Infectious disease also following appreciate recommendations. Plan to continue at [facility] Rocephin IV antibiotic. UTI (urinary tract infection) klebsiella Oxytoca Cont zosyn S/P total hip arthroplasty s/p TERRI and right knee injection on 02/16/17 Continue pain management SHANTA (acute kidney injury) fluid challenge follow and avoid nephrotoxins treat uti If no improvement will check urine ultrasound Hyperkalemia We'll add Bumex, follow repeat values OB (shortness of breath) Patient with a history of tobacco dependency tachypnea and dyspnea Continue bronchodilators, steroid prescribed Follow-up after Bumex (weight up 10 kg since admission) Echo cardiac impending/abnormal EKG DVT prophylaxis per surgeon Discussed with the patient, nurse Patient improved, wound vac changed can also follow up with wound care nurse to change wound vac at [facility]. Patient will go to [facility]. To follow up as OP with PCP and consultants. Antibiotic at discharge to [facility] while at [place] Ceftriaxone 2 grams IV q 24 hours Stop Treatment: Mar 30, 2017 Angela Del Rosario MD Mar 05, 2017 09:54
--- NOTE | 2017-03-05 09:59 | HHI.DS ---
Discharge Summary Admission Date Feb 28, 2017 at 22:25 Discharge Date: Mar 06, 2017 Admitting Diagnosis Sepsis, UTI . (1) Sepsis ICD Code: A41.9 - Sepsis, unspecified organism (2) UTI (urinary tract infection) ICD Code: N39.0 - Urinary tract infection, site not specified Status: Acute (3) S/P total hip arthroplasty ICD Code: Z96.649 - Presence of unspecified artificial hip joint Status: Acute (4) SHANTA (acute kidney injury) ICD Code: N17.9 - Acute kidney failure, unspecified Status: Acute (5) Hyperkalemia ICD Code: E87.5 - Hyperkalemia (6) SOB (shortness of breath) ICD Code: R06.02 - Shortness of breath Procedures Wound infection left hip two weeks status post total hip replacement, infection confined to the subcutaneous tissue S/P Exploration wound left hip and debridement and irrigation and closure with wound VAC by Dr Lara. Brief History - From Admission Mr. Tran is a 71-year-old male with a history of osteoarthritis and lumbar spondylosis who is status post left total hip replacement through anterior approach on 02/16/[address] Lara who was discharged after hospitalization to [facility] and developed symptoms of sepsis while there. Hospitalists were consulted to manage sepsis and transferred patient to [facility] for further medical management. The patient was seen in his room at [facility]. He reported feeling "unwell" and further describe this as feeling tired and fatigued. He reports that his feet feel weak bilaterally and his left hip hurts with movement only. The pain is described as sharp and severe when it occurs. Nursing had reported to me some bloody and purulent discharge from the left anterior hip replacement surgical site along with a temperature of 103.2. I inspected the area and the wound edges are well approximated and covered with Steri-Strips. There is some serosanguineous drainage noted on the dressing but no overt purulent or bloody discharge noted at the time of my exam. The patient denies any chills, chest pain, palpitations, shortness of breath, nausea, vomiting, diarrhea, dysuria, or hematuria. CBC/BMP: 03/04/17 0727 03/04/17 0727 Significant Findings Laboratory Tests Test 03/03/17 07:51 03/04/17 07:27 03/04/17 19:20 White Blood Count 12.6 TH/MM3 (4.0-11.0) 12.3 TH/MM3 (4.0-11.0) Red Blood Count 2.71 MIL/MM3 (4.50-5.90) 2.65 MIL/MM3 (4.50-5.90) Hemoglobin 7.9 GM/DL (13.0-17.0) 7.7 GM/DL (13.0-17.0) Hematocrit 23.4 % (39.0-51.0) 22.8 % (39.0-51.0) Neutrophils (%) (Auto) 78.2 % (16.0-70.0) 75.4 % (16.0-70.0) Monocytes (%) (Auto) 8.5 % (0.0-8.0) 9.9 % (0.0-8.0) Neutrophils # (Auto) 9.9 TH/MM3 (1.8-7.7) 9.3 TH/MM3 (1.8-7.7) Monocytes # (Auto) 1.1 TH/MM3 (0-0.9) 1.2 TH/MM3 (0-0.9) Blood Urea Nitrogen 35 MG/DL (7-18) 33 MG/DL (7-18) Creatinine 1.58 MG/DL (0.60-1.30) Random Glucose 136 MG/DL (74-106) Calcium Level 7.6 MG/DL (8.5-10.1) 7.9 MG/DL (8.5-10.1) Sodium Level 132 MEQ/L (136-145) 133 MEQ/L (136-145) Estimat Glomerular Filtration Rate 44 ML/MIN (>89) 63 ML/MIN (>89) Urine Urobilinogen 4.0 MG/DL (LESS THAN Urine Bacteria RARE /hpf (NONE) Imaging Last Impressions Hip X-Ray 03/02/17 1902 Signed Impressions: Service Date/Time: Thursday, March 02, 2017 19:40 - CONCLUSION: Total hip prosthesis in good location. There is suspected air projecting over the soft tissues superior to the left femoral neck. Alexi Bailey MD Hip and Pelvis X-Ray 03/01/17 0000 Signed Impressions: Service Date/Time: Wednesday, March 01, 2017 00:00 - CONCLUSION: 1. Left hip arthroplasty. 2. Fracture inferior pubic ramus on the left of indeterminate age. Tim Nava MD PE at Discharge GENERAL: This is a well-nourished, well-developed patient, pursed lip breathing , and sob at rest CARDIOVASCULAR: Regular rate and rhythm without murmurs, gallops, or rubs. RESPIRATORY: Clear to auscultation. Breath sounds equal bilaterally. No wheezes , rales, or rhonchi. GASTROINTESTINAL: Abdomen soft, non-tender, nondistended. Normal active bowel sounds MUSCULOSKELETAL: Extremities without clubbing, cyanosis, or edema. NEURO: Alert & Oriented x4 to person, place, time, situation. Moves all ext x4 Pt update on day of discharge No events overnight. No complaints at this time. Vital signs are stable. Hospital Course Sepsis. Left hip wound infection s/p total hip replacement. Possible source hip (gram neg chema in hip) v uti follow blood cultures cont IV zosyn Wound infection left hip two weeks status post total hip replacement, infection confined to the subcutaneous tissue S/P Exploration wound left hip and debridement and irrigation and closure with wound VAC by Dr Lara. Infectious disease also following appreciate recommendations. Plan to continue at [facility] Rocephin IV antibiotic. 03/05/17 Had right knee steroid injection by Dr Lara. Also add oxycontin and celebrex per Dr Lara. Discussed with Dr Lara ortho, cleared patient for [place] will change wound vac Q week . Will change wound vac on Tuesday UTI (urinary tract infection) klebsiella Oxytoca Cont zosyn S/P total hip arthroplasty s/p TERRI and right knee injection on 02/16/17 Continue pain management SHANTA (acute kidney injury) fluid challenge follow and avoid nephrotoxins treat uti If no improvement will check urine ultrasound Hyperkalemia We'll add Bumex, follow repeat values OB (shortness of breath) Patient with a history of tobacco dependency tachypnea and dyspnea Continue bronchodilators, steroid prescribed Follow-up after Bumex (weight up 10 kg since admission) Echo cardiac impending/abnormal EKG DVT prophylaxis per surgeon Discussed with the patient, nurse Patient improved, wound vac changed can also follow up with wound care [facility] Patient will go to [facility]. To follow up as OP with PCP and consultants. Had PICC line placed 03/05/17 . Antibiotic at discharge to continue while at [facility] Ceftriaxone 2 grams IV q 24 hours Stop Treatment: Mar 30, 2017. Wound vac will be changed by Dr Vogt ortho q week, will change it on Tuesday at rehab. Pt Condition on Discharge: Stable Discharge Disposition: Rehab Inpatient Discharge Time: > 30 minutes Discharge Instructions DIET: Follow Instructions for: Heart Healthy Diet, Weight Management Activities you can perform: Weight Bearing as Monica Activities to Avoid: Bathing, Shower, Driving Follow up Referrals: Orthopedics - 3-5 Days with Carter Lara MD PCP Follow-up - 2-3 Days New Medications: Ceftriaxone Inj (Ceftriaxone Inj) 2 Gm/50 Ml Bagp 2 GM IV Q24H for Infection for 30 Days, BAG 0 Refills Oxycodone ER (Oxycodone ER) 20 Mg Tab 20 MG PO Q12HR for Pain Management, #30 TAB 0 Refills Famotidine (Famotidine) 20 Mg Tab 20 MG PO BID for Reflux, #60 TAB Ketorolac Tromethamine (Ketorolac Tromethamine) 30 Mg/Ml (1 Ml) Vial 30 MG IVP Q8HR for Pain Management, #30 VIAL Iiixzuth-Oqwatetuzboegmo-Bvateuiep Liq (Magic Mouthwash Adult Liq) 120 Ml Susp 5 ML SWISH-SWAL QID for Infection, #120 ML Continued Medications: Celecoxib (Celebrex) 200 Mg Cap 200 MG PO DAILY for Pain Management MDD 200 for 28 Days, #28 CAP Enoxaparin Inj (Lovenox Inj) 40 Mg/0.4 Ml Syr 40 MG SQ Q24H for VTE prophylaxis MDD 40 for 14 Days, #14 INJECTION Hydrocodone/Acetaminophen (Hydrocodone-Acetamin 10-325 mg) 10 Mg-325 Mg Tablet 1-2 TAB PO Q4H PRN for pain, #30 [Albuterol-Ipratropium Neb] () 1 AMPULE NEBU 1 AMPULE NEB Q4HR NEB PRN for DYSPNEA for 1 Day Discontinued Medications: Pantoprazole (Protonix) 40 Mg Tab 40 MG PO DAILY for Reflux for 28 Days, #28 TAB 0 Refills Piperacillin-Tazobactam Inj (Zosyn Inj) 4.5 Gram Inj 4.5 GM IV Q8H for Infection for 7 Days, BAG 0 Refills Angela Del Rosario MD Mar 05, 2017 09:59
[2017-03-05] MEDS ORDERED: traMADol HCL 50 MG TAB PO PRN (11:45)
--- NOTE | 2017-03-05 12:00 | PD.ORT.PN ---
Subjective Post Op Day #: 3 Pain Scale: 7 Subjective Remarks can not stand on right knee. Left hip stiff but not painful Range of Motion He is able to flex knees and hips voluntarily in bed upto 40 degrees without pain Distance Walked none Objective Vitals Microbiology Date/Time Source Procedure Growth Status 03/02/17 17:45 Wound Hip Fungal Smear - Final NO FUNGAL ELEMENTS SEEN. Resulted 03/02/17 17:45 Wound Hip Fungal Culture Pending Resulted Vital Signs Date Time Temp Pulse Resp B/P (MAP) Pulse Ox O2 Delivery O2 Flow Rate FiO2 03/05/17 08:00 98.7 72 20 106/64 (78) 96 03/05/17 03:24 99.4 82 16 132/69 (90) 03/05/17 00:30 98.4 89 19 110/56 (74) 95 03/04/17 20:45 97.9 95 19 107/54 (71) 94 03/04/17 20:40 101 03/04/17 20:04 91 21 03/04/17 16:00 102.7 107 20 155/86 (109) 94 03/04/17 13:07 98.4 97 20 128/58 (81) 93 I/O 03/04/17 03/04/17 03/04/17 03/05/17 03/05/17 03/05/17 07:00 15:00 23:00 07:00 15:00 23:00 Intake Total 600 ml 500 ml Output Total 500 ml 200 ml 0 ml 500 ml Balance -500 ml -200 ml 600 ml 0 ml Intake Oral 600 ml 500 ml Output Urine Total 500 ml 200 ml 0 ml 500 ml # Voids 3 # Bowel Movements 0 0 0 Result Diagram: 03/04/1772603/04/17726 Imaging Last 24 hours Impressions Hip X-Ray 03/02/171901 Signed Impressions: Service Date/Time: Thursday, March 02, 2017 19:40 - CONCLUSION: Total hip prosthesis in good location. There is suspected air projecting over the soft tissues superior to the left femoral neck. Alexi Bailey MD Objective Remarks Awake, in bed, not in distress, just finished PT ( who told me he did poorly because he could not stand on right leg) Right knee: no warmth or effusion, but obvious OA No edema legs, moves feet and toes well. Assessment & Plan Ortho Post Op Day #: 3 Problem List: Assessment and Plan 3 day post I and D superficial infection left hip On ceftriaxone for klebsiella To inpatient rehab tomorrow UA negative Afebrile left hip shows intact dressings, no increase in swelling. No redness. DC hydrocodone, start oxycontin 20 mg q 8, and tramadol for breakthrough pain. To do steroid injection right knee today Discussed with Romero' doctor Carter Lara MD Mar 05, 2017 12:00
[2017-03-05] MEDS ORDERED: DEXAMETHASONE SOD PHOS 4 MG/ML VIAL OTHER ONE (12:45)
[2017-03-05] MEDS ORDERED: BUPIVACAINE HCL PF 0.5% 10 ML VIAL OTHER ONE (12:45)
[2017-03-05] MEDS: cefTRIAXone INJ 2,000 MG in SODIUM CHLORIDE 0.9% INJ 100 ML IV SCH (14:00)
[2017-03-05] MEDS ORDERED: methylPREDNISolone ACETATE 40 MG/ML VIAL I-ARTICULR ONE (14:00)
[2017-03-05] MEDS ORDERED: OXYC-405 PO (15:23)
--- NOTE | 2017-03-05 16:41 | MR ---
cc: ANDREW LARA DATE: 03/05/2017. PROCEDURE PERFORMED: Injection right knee with a mixture of 1 mL of Decadron, 1 mL of Depo-Medrol and 3 mL of 0.5% plain Marcaine. INDICATIONS FOR THE PROCEDURE: Pain / osteoarthritis right knee. SURGEON: Andrew Lara MD. SQL CONSULTANT: RN. DESCRIPTION OF THE PROCEDURE IN DETAIL: The patient's knee was flexed as much as we could to about 65 degrees in bed. The anterior aspect of the knee was prepped with a Betadine swab. The injection of a mixture of 1 mL of Decadron, 1 mL of Depo-Medrol and 3 mL of 0.5% plain Marcaine was injected into the joint through the inferomedial approach adjacent to the lower pole of the patella and patellar tendon. The patient tolerated the procedure well. Andrew Lara MD /[facility] /3:21 PM /4:38 PM
[2017-03-05] MEDS: oxyCODONE HCL 20 MG CONTROLLED RELEASE TAB PO SCH ×2 (16:44→22:00)
[2017-03-05] MEDS ORDERED: CELECOXIB 200 MG CAP PO SCH (18:00)
[2017-03-06 00:30] VITALS: BP 130/65; PULSE 89; RESP 21; TEMP 99.3; O2SAT 96
[2017-03-06] MEDS: DEXT 5%-NACL 0.45% 1000 ML INJ 1,000 ML IV SCH (04:00)
[2017-03-06 04:30] VITALS: BP 128/69; PULSE 80; RESP 20; TEMP 99; O2SAT 98
[2017-03-06] MEDS: oxyCODONE HCL 20 MG CONTROLLED RELEASE TAB PO SCH (05:45)
[2017-03-06 08:00] VITALS: BP 130/73; PULSE 70; RESP 18; TEMP 97.9; O2SAT 98
[2017-03-06] MEDS: NYSTAT/DIPHENHY/LIDO MOUTHWASH (Adult) 120ML SWISH-SWAL SCH (08:50)
[2017-03-06] MEDS: FAMOTIDINE 20 MG TAB PO SCH (08:51)
[2017-03-06] MEDS: ENOXAPARIN SODIUM 40 MG/0.4 ML SYRINGE SQ SCH (08:51)
[2017-03-06] MEDS: SODIUM CHLORIDE 0.9% FLUSH 5 ML FLUSH IVF SCH (08:51)
[2017-03-06] MEDS: DOCUSATE SODIUM 50 MG/SENNA 8.6 MG TAB PO SCH (08:51)
[2017-03-06] MEDS ORDERED: HYDR-3583 PO (12:04)
== END 2017-03-06 10:50 | DRG 856 ==
LOC: N06B 22:25 → N05B 03-01 17:01
PROVIDERS: ADMIT Hospitalist; ATTEND Hospitalist
PROC: 0JDM0ZZ Extraction of Left Upper Leg Subcutaneous Tissue and Fascia, Open Approach (ICD-10-PCS; principal; 2017-03-02 16:35)
PROC: 05H333Z Insertion of Infusion Device into Right Innominate Vein, Percutaneous Approach (ICD-10-PCS; 2017-03-04)
PROC: 3E0U33Z Introduction of Anti-inflammatory into Joints, Percutaneous Approach (ICD-10-PCS; 2017-03-05)
PROC: 3E0U3BZ Introduction of Anesthetic Agent into Joints, Percutaneous Approach (ICD-10-PCS; 2017-03-05)
DX: T81.4XXA Infection following a procedure, initial encounter (principal); A41.9 Sepsis, unspecified organism; N17.9 Acute kidney failure, unspecified; E87.5 Hyperkalemia; N39.0 Urinary tract infection, site not specified; M17.11 Unilateral primary osteoarthritis, right knee; M47.816 Spondylosis without myelopathy or radiculopathy, lumbar region; R94.31 Abnormal electrocardiogram [ECG] [EKG]; B96.1 Klebsiella pneumoniae [K. pneumoniae] as the cause of diseases classified elsewhere; Z96.642 Presence of left artificial hip joint; Z87.891 Personal history of nicotine dependence; Y83.1 Surgical operation with implant of artificial internal device as the cause of abnormal reaction of the patient, or of later complication, without mention of misadventure at the time of the procedure
CPT/HCPCS: 36569; 73501; 73502; 76000; 76937; 80048; 81001; 83605; 85025; 85027; 86850; 86900; 86901; 86920; 87015; 87070; 87077; 87102; 87116; 87176; 87186; 87205; 87206; 93005; 93306; 94150; 94640; 94664; J0690; J0696; J1580; J1650; J1885; J2175; J2270; J2405; J2543; J3010; J7030; J7040; J7509

== ENCOUNTER 2017-03-23 11:38 | Inpatient (IN) | payer MEDICARE, OTHER ==
[~2017-03-23] VITALS: Ht 198.1 cm; Wt 148.0 kg
[~2017-03-23 11:38] MED LIST changes: +CEFT2INJ2 IV; -ENOX40P SQ; +FAMO20TA2 PO; -HYDR-3516 PO; +MAGICADU2 SWISH-SWAL; +OXYC-103 PO; +PERI PO; -PROT40TA PO; -TRAM50TA PO; +WHEEMIS3; -ZOSY4.5P IV; +[UNRECOGNIZED DRUG - OTHER]
[2017-03-23] MEDS ORDERED: METOPROLOL TARTRATE 25 MG TAB PO PRN (12:00)
[2017-03-23] MEDS ORDERED: INSULIN HUMAN REGULAR 1,000 UNITS/10 ML VIAL SQ PRN (12:00)
[2017-03-23] MEDS ORDERED: POVIDONE IODINE 5% (ANTISEPSIS KIT) 4 APPLICATIONS EACH NARE PRN (12:00)
[2017-03-23] MEDS ORDERED: CHLORHEXIDINE GLUCONATE 2 % 1 PACK (2 CLOTHS) TOPICAL PRN (12:00)
[2017-03-23] MEDS ORDERED: LACTATED RINGER'S 1000 ML IV PRN (12:00)
[2017-03-23] MEDS ORDERED: SODIUM CHLORID 0.9% 500 ML IV PRN (12:00)
[2017-03-23] MEDS ORDERED: ACETAMINOPHEN 1000 MG/100 ML 0 ML IV ONE (12:33)
[2017-03-23] MEDS ORDERED: SODIUM CHLOR 0.9% 250 ML INJ 0 ML ONE (12:47)
[2017-03-23] MEDS ORDERED: VANCOMYCIN HCL 1000 MG VIAL ONE ×2 (12:47→12:48)
[2017-03-23] MEDS ORDERED: GENTAMICIN SULFATE 80 MG/2 ML VIAL ONE (12:47)
[2017-03-23] MEDS ORDERED: TOBRAMYCIN 1200 MG VIAL (ortho-sterile core) OTHER ONE (13:15)
[2017-03-23] MEDS ORDERED: ceFAZolin INJ 1,000 MG VIAL ONE (13:18)
[2017-03-23] MEDS ORDERED: Vancomycin Consult Pharmacy 1 EA OTHER SCH (15:00)
[2017-03-23] MEDS ORDERED: Post-op Orders (for Pharmacy) MISC XX ONE (15:00)
[2017-03-23] MEDS ORDERED: NALOXONE HCL 0.4 MG/ML AMP IV PUSH PRN ×2 (15:00)
[2017-03-23] MEDS ORDERED: ACETAMINOPHEN/HYDROcodone 325 MG/5 MG TAB PO PRN (15:00)
[2017-03-23] MEDS ORDERED: diphenhydrAMINE HCL 25 MG CAP PO PRN (15:00)
[2017-03-23] MEDS ORDERED: traMADol HCL 50 MG TAB PO PRN (15:00)
[2017-03-23] MEDS: LACTATED RINGER'S 1000 ML INJ 1,000 ML IV SCH ×2 (15:15→23:10)
[2017-03-23] MEDS ORDERED: *morphine SULFATE 8 MG/ML PERIprocedure ONLY ONE (15:26)
[2017-03-23] MEDS ORDERED: MORPHINE SULFATE 8 MG/ML INJ IV PUSH PRN (15:45)
[2017-03-23 16:30] VITALS: BP 116/75; PULSE 80; RESP 17; TEMP 95.5; O2SAT 93
[2017-03-23] MEDS ORDERED: ACETAMINOPHEN 500 MG CPLT PO PRN (16:45)
[2017-03-23] MEDS: KETOROLAC TROMETHAMINE 30 MG/ML (IVP) VIAL IVP SCH ×2 (17:12→23:24)
[2017-03-23] MEDS: cefTRIAXone INJ 2,000 MG in SODIUM CHLORIDE 0.9% INJ 100 ML IV SCH (17:12)
[2017-03-23] MEDS: VANCOMYCIN INJ 2,500 MG in SODIUM CHLORID 0.9% 500 ML INJ 500 ML IV SCH (17:51)
[2017-03-23 20:00] VITALS: BP 98/56; PULSE 80; RESP 18; TEMP 97.2; O2SAT 98
[2017-03-23] MEDS: DOCUSATE SODIUM 50 MG/SENNA 8.6 MG TAB PO SCH (20:15)
[2017-03-23] MEDS: CALCIUM CARBONATE 1.25 GM (CA 500 MG) TAB PO SCH (20:15)
[2017-03-23] MEDS: MULTIVITAMIN HEMATINIC THERAPEUTIC TAB PO SCH (20:15)
--- NOTE | 2017-03-23 20:54 | MP ---
cc: ANDREW JAVIER DATE OF SURGERY: 03/23/2017 PREOPERATIVE DIAGNOSIS: Persistent drainage of wound left hip five weeks post total hip and three weeks postop superficial I&D, with probable joint involvement. POSTOPERATIVE DIAGNOSIS Persistent drainage left hip incision five weeks post total hip through anterior approach and three weeks post superficial debridement with no evidence of deeper infection. DISCUSSION This patient had Klebsiella infection, probably a wound contamination from a urinary tract infection 13 days post index surgery and therefore was transferred from [place] to [facility]. Both the left hip wound and a urinary tract grew Klebsiella sensitive to most antibiotics and he was placed on IV ceftriaxone. The patient was taken to the operating room two weeks after the index surgery for incision and drainage and the fascia was seen to be completely intact and, therefore, he had debridement performed, wound closure and dressing with Maria Elena dressings. The patient has continued to drain and developed a sinus tract with large amount of serous drainage. Deep culture was obtained last Tuesday which is negative for any growth and the Gram stain was negative. Yesterday he had a hip aspiration by radiology and that showed slightly over 3000 white cells, 70% neutrophils, well below the 10,000 white cell threshold for recent postop patients. Gram stain also showed only 2 WBCs, no bacteria. We are prepared to go deep and do an exchange arthroplasty or put a spacer but when we explored the wound today there was a lot of necrotic fat and once it was all cleaned out and debrided, the fascia looked pristine and there was no evidence of any drainage deeper, in spite of putting the hip through range of motion and squeezing all around, there was no drainage from deep. The fascia was intact. One would think that if there was infection deep for five weeks now, or even three weeks, the fascia would be violated in some form or other. The 24 hour culture on the hip aspirate was negative. I certainly hope that the 48 hours does not come up with a positive finding which would force us to do an arthrotomy in spite of not having violation of the fascia. TECHNIQUE After induction of general anesthesia the patient's left hip was elevated on a folded blanket. Left hip and left lower extremity thoroughly prepped with alcohol and ChloraPrep and draped in routine fashion including double Ioban drapes. The previous incision was opened in its entirety. There was large amounts of the necrotic fatty tissue. This is all debrided. Tissue obtained from the subcutaneous tissue, two pieces sent for Gram stain, culture, aerobic, anaerobic. This was only done after thyroid evaluation of the fascia and not finding any indication of penetration or violation of the fascia and therefore very unlikely to have deep infection. The fatty tissue was all debrided with sharp and blunt dissection, 3000 cc of saline with antibiotic was used to lavage and debride. Closure was carried out with 2-0 Rapide Vicryl sutures and #2 nylon sutures for the skin. Wound Vac dressing was applied with the standard wound Vac and Maria Elena dressing so it can handle even a large amount of drainage. The patient was transferred to the Recovery Room in satisfactory condition. The patient tolerated the procedure well. TRANSFUSIONS None. COMPLICATIONS None. POSTOPERATIVE CONDITION Satisfactory PROGNOSIS Would like to keep our fingers crossed and see what happens. Will certainly look forward to the 48 hour culture report tomorrow and decide further disposition on that as well as more importantly the behavior of this wound over the next couple of weeks. Infectious Disease is being reconsulted. MD DONNA Cee/MANDIE /3:20 PM /8:27 PM
[2017-03-24] VITALS: BP 107/65; PULSE 83; RESP 20; TEMP 97.3; O2SAT 94
[2017-03-24 04:00] VITALS: BP 108/71; PULSE 78; RESP 20; TEMP 97.9; O2SAT 96
[2017-03-24] MEDS: KETOROLAC TROMETHAMINE 30 MG/ML (IVP) VIAL IVP SCH ×4 (04:39→22:30)
[2017-03-24] MEDS: LACTATED RINGER'S 1000 ML INJ 1,000 ML IV SCH ×3 (05:50→19:10)
[2017-03-24 08:00] VITALS: BP 112/66; PULSE 69; RESP 18; TEMP 97; O2SAT 99
[2017-03-24] MEDS: MULTIVITAMIN HEMATINIC THERAPEUTIC TAB PO SCH ×2 (08:08→20:07)
[2017-03-24] MEDS: CALCIUM CARBONATE 1.25 GM (CA 500 MG) TAB PO SCH ×2 (08:08→20:07)
[2017-03-24] MEDS: DOCUSATE SODIUM 50 MG/SENNA 8.6 MG TAB PO SCH ×2 (08:09→20:07)
[2017-03-24] MEDS: CHOLECALCIFEROL (VIT D3) 1000 UNIT TAB PO SCH (08:09)
[2017-03-24] MEDS: oxyCODONE HCL 10 MG CONTROLLED RELEASE TAB PO SCH ×2 (08:09→20:07)
[2017-03-24 12:00] VITALS: BP 102/56; PULSE 86; RESP 20; TEMP 97.6; O2SAT 95
[2017-03-24] MEDS: ENOXAPARIN SODIUM 40 MG/0.4 ML SYRINGE SQ SCH (12:41)
[2017-03-24] MEDS ORDERED: CELE200C PO (14:54)
[2017-03-24] MEDS ORDERED: TRAM50 PO (14:54)
[2017-03-24] MEDS ORDERED: CALC500 PO (14:54)
[2017-03-24] MEDS ORDERED: HYDR-3516 PO (14:54)
[2017-03-24] MEDS ORDERED: THERH PO (14:54)
[2017-03-24] MEDS ORDERED: CHOL1000 PO (14:54)
--- NOTE | 2017-03-24 14:58 | HHI.FF ---
Face to Face Verification Diagnosis: (1) S/P total hip arthroplasty (2) BMI 38.0-38.9,adult (3) Osteoarthritis involving multiple joints on both sides of body (4) Incisional abscess (5) Impaired mobility and activities of daily living (6) Effusion of right knee joint (7) Osteoarthritis of both knees (8) Postoperative anemia due to acute blood loss Physical Therapy Gait training Hip: Total hip, Protocol: Left Left LE Weight Bearing: WB as tolerated Nursing Nursing: Andrea teaching, Other Additional Instructions Wound vac protocol, change tuesday and tuesday, Use strict sterile technique I have seen patient Sydney Tran on 03/24/17. My clinical findings support the need for the requested home health care services because: Deconditioned w/ increased weakness Limited ability to care for self Infection w/ risk of complications Injectable med education/admin I certify that my clinical findings support that this patient is homebound because: Unsteady gait/balance Unable to use public transportation Dr. Briceño will add antibiotic orders Carter Lara MD Mar 24, 2017 14:58
[2017-03-24 15:04] LABS: MEAN CELL VOLUME 85.9 FL (80.0-100.0); MEAN CORPUSCULAR HEMOGLOBIN 28.4 PG (27.0-34.0); MEAN CORPUSCULAR HGB CONC 33.1 % (32.0-36.0); PLATELET COUNT 273 TH/MM3 (150-450); RED BLOOD COUNT 3.15 MIL/MM3 (4.50-5.90); RED CELL DISTRIBUTION WIDTH 14.7 % (11.6-17.2); REVIEW FLAG FINAL; WHITE BLOOD COUNT 6.3 TH/MM3 (4.0-11.0)
--- NOTE | 2017-03-24 15:07 | PD.ORT.PN ---
Subjective Post Op Day #: 1 Objective Vitals Microbiology Date/Time Source Procedure Growth Status 03/23/17 14:01 Wound Hip Fungal Smear - Final NO FUNGAL ELEMENTS SEEN. Resulted 03/23/17 14:01 Wound Hip Fungal Culture Pending Resulted Vital Signs Date Time Temp Pulse Resp B/P (MAP) Pulse Ox O2 Delivery O2 Flow Rate FiO2 03/24/17 12:00 97.6 86 20 102/56 (71) 95 03/24/17 08:00 97.0 69 18 112/66 (81) 99 03/24/17 04:00 97.9 78 20 108/71 (83) 96 03/24/17 00:00 97.3 83 20 107/65 (79) 94 03/23/17 20:00 97.2 80 18 98/56 (70) 98 03/23/17 16:30 95.5 80 17 116/75 (89) 93 03/23/17 16:00 97.6 74 16 116/61 (79) 97 Room Air 03/23/17 15:30 73 16 125/74 (91) 97 Room Air 03/23/17 15:15 75 16 120/65 (83) 97 Room Air I/O 03/23/17 03/23/17 03/23/17 03/24/17 03/24/17 03/24/17 07:00 15:00 23:00 07:00 15:00 23:00 Intake Total 1000 ml 824 ml 1501 ml Output Total 50 ml 0 ml 0 ml Balance 950 ml 824 ml 1501 ml Intake Oral 425 ml 720 ml IV Total 399 ml 781 ml Other 1000 ml Output Drainage Total 0 ml 0 ml Estimated Blood Loss 50 ml Bladder Scan Volume Amount 284 ml # Voids 0 # Bowel Movements 0 Objective Remarks In bed, comfortable Main source of pain right knee There is mild effusion right knee., no redness or warmth Wound vac present left hip, mild drainage serous; nothing in reservoir Assessment & Plan Ortho Post Op Day #: 1 Problem List: Assessment and Plan Superficial wound infection left hip post left TERRI, post second I & D yesterday Wound vac funtioning. DC home with [facility], with wound vac and iv antibiotics, probably tuesday Synovial fluid from left hip C./S negative 48 hours. Carter Lara MD Mar 24, 2017 15:07
[2017-03-24 15:13] LABS: BICARBONATE 29.4 MEQ/L (21.0-32.0); POTASSIUM 4.1 MEQ/L (3.5-5.1)
[2017-03-24 16:00] VITALS: BP 115/67; PULSE 80; RESP 18; TEMP 98.2; O2SAT 96
[2017-03-24] MEDS: cefTRIAXone INJ 2,000 MG in SODIUM CHLORIDE 0.9% INJ 100 ML IV SCH (16:49)
[2017-03-24] MEDS: VANCOMYCIN INJ 2,500 MG in SODIUM CHLORID 0.9% 500 ML INJ 500 ML IV SCH (17:25)
[2017-03-24 20:00] VITALS: BP 116/64; PULSE 92; RESP 19; TEMP 98.6; O2SAT 97
[2017-03-25] VITALS: BP 127/72; PULSE 85; RESP 20; TEMP 98.3; O2SAT 96
[2017-03-25] MEDS: LACTATED RINGER'S 1000 ML INJ 1,000 ML IV SCH ×2 (03:32→08:30)
[2017-03-25] MEDS: KETOROLAC TROMETHAMINE 30 MG/ML (IVP) VIAL IVP SCH ×2 (04:30→12:51)
[2017-03-25 08:00] VITALS: BP 125/77; PULSE 85; RESP 19; TEMP 98.6; O2SAT 95
[2017-03-25] MEDS: CALCIUM CARBONATE 1.25 GM (CA 500 MG) TAB PO SCH (08:15)
[2017-03-25] MEDS: MULTIVITAMIN HEMATINIC THERAPEUTIC TAB PO SCH (08:15)
[2017-03-25] MEDS: CHOLECALCIFEROL (VIT D3) 1000 UNIT TAB PO SCH (08:15)
[2017-03-25] MEDS: DOCUSATE SODIUM 50 MG/SENNA 8.6 MG TAB PO SCH (08:15)
[2017-03-25] MEDS: oxyCODONE HCL 10 MG CONTROLLED RELEASE TAB PO SCH (08:15)
[2017-03-25 12:00] VITALS: BP 115/85; PULSE 91; RESP 19; TEMP 99; O2SAT 96
--- NOTE | 2017-03-25 12:07 | HHI.IDPN ---
Note Infectious Disease Note ID follow up. Patient is well known to me. Transferred from rehab for further I&D of the left hip. Necrotic fatty tissue found. No deep involvement noted. Culture negative at 48 hours. Patient has had persistent drainage from the left hip. He is afebrile. Has larger wound vac over the wound. Connection was dislodged this am and the vac is to be changed. Patient say that he has absolutely no pain. PAST MEDICAL HISTORY 1. Osteoarthritis. 2. Lumbar spondylosis. 3. History of appendectomy. 4. Left hip arthroplasty on 02/16/2017. 5. Right knee steroid injection on 02/16/2017. ALLERGIES NO KNOWN DRUG ALLERGIES. ANTIBIOTICS: Ceftriaxone. SOCIAL HISTORY Positive tobacco. Positive alcohol. No illicit drugs. The patient is originally from the [facility]. FAMILY HISTORY Noncontributory. OBJECTIVE: Vital Signs Date Time Temp Pulse Resp B/P (MAP) Pulse Ox O2 Delivery O2 Flow Rate FiO2 03/25/17 10:12 16 03/25/17 08:00 98.6 85 19 125/77 (93) 95 03/25/17 00:00 98.3 85 20 127/72 (90) 96 03/24/17 20:00 98.6 92 19 116/64 (81) 97 03/24/17 16:00 98.2 80 18 115/67 (83) 96 03/24/17 12:00 97.6 86 20 102/56 (71) 95 Laboratory Tests Test 03/24/17 14:44 White Blood Count 6.3 TH/MM3 Red Blood Count 3.15 MIL/MM3 Hemoglobin 9.0 GM/DL Hematocrit 27.0 % Mean Corpuscular Volume 85.9 FL Mean Corpuscular Hemoglobin 28.4 PG Mean Corpuscular Hemoglobin Concent 33.1 % Red Cell Distribution Width 14.7 % Platelet Count 273 TH/MM3 Mean Platelet Volume 6.6 FL Laboratory Tests Test 03/24/17 14:44 03/25/17 07:24 Blood Urea Nitrogen 17 MG/DL Creatinine 1.33 MG/DL 1.28 MG/DL Random Glucose 81 MG/DL Calcium Level 8.7 MG/DL Sodium Level 136 MEQ/L Potassium Level 4.1 MEQ/L Chloride Level 100 MEQ/L Carbon Dioxide Level 29.4 MEQ/L Anion Gap 7 MEQ/L Estimat Glomerular Filtration Rate 53 ML/MIN 56 ML/MIN Microbiology Date/Time Source Procedure Growth Status 03/23/17 14:01 Wound Hip Fungal Smear - Final NO FUNGAL ELEMENTS SEEN. Resulted 03/23/17 14:01 Wound Hip Fungal Culture Pending Resulted 03/23/17 14:01 Wound Hip Acid Fast Stain Pending Received 03/23/17 14:01 Wound Hip Mycobacterial Culture Pending Received 03/23/17 14:01 Wound Hip Gram Stain - Final Resulted 03/23/17 14:01 Wound Hip Wound Culture - Preliminary NO GROWTH IN 48 HOURS. Resulted 03/23/17 14:00 Wound Hip Fungal Smear - Final NO FUNGAL ELEMENTS SEEN. Resulted 03/23/17 14:00 Wound Hip Fungal Culture Pending Resulted 03/23/17 14:00 Wound Hip Acid Fast Stain Pending Received 03/23/17 14:00 Wound Hip Mycobacterial Culture Pending Received 03/23/17 14:00 Wound Hip Gram Stain - Final Resulted 03/23/17 14:00 Wound Hip Wound Culture - Preliminary NO GROWTH IN 48 HOURS. Resulted PHYSICAL EXAMINATION GENERAL: No acute distress. HEENT: No icterus. Oropharynx moist mucosa without visible lesions. NECK: Supple without adenopathy. LUNGS: Clear. HEART: Regular S1-S2. No murmurs. No rubs. No gallops. ABDOMEN: Bowel sounds present, soft. Non tender. EXTREMITIES: Left hip has 3+ edema. SKIN: No diffuse rash. NEUROLOGIC: Nonfocal. PSYCHIATRIC: Calm and cooperative. IMPRESSION 1. Infected left hip total arthroplasty. Klebsiella pneumoniae. Continues to have drainage. Has wound vac. 3. Urinary tract infection due to Klebsiella. recent treatment. 4. Leukocytosis secondary to left hip infection. WBC normal. RECOMMENDATIONS Continue Ceftriaxone 2 grams IV until Mar. Orders on IV infusion form for home health. Okay to discharge. Vladimir Briceño MD Mar 25, 2017 12:07
--- NOTE | 2017-03-25 12:13 | HHI.FF ---
Infusion Therapy Location of Infusion Therapy: Home Health Care IV Infusion Order Patient Information Patient Weight 148 kg Diagnosis: (1) Incisional abscess (2) S/P total hip arthroplasty Coded Allergies: No Known Allergies (Verified Allergy, Unknown, 03/23/17) Administer Medication Ceftriaxone 2 grams IV q 24 hours Stop Treatment: Apr 06, 2017 Additional Information Venous access: Other Additional Instructions [x] Peripheral flush and dressing changes per protocol [x] Implanted port and central line walker: * Implanted port: 10 ml Normal Saline followed by 5 ml Heparin 100 units/ml Heparin flush after each use and monthly to maintain. [] May leave port accessed during therapy. [] May leave peripheral site accessed for duration of therapy. [x] If patient has SOB or respiratory distress, check oxygen saturation. If less than 90% or clinical signs of respiratory distress, administer oxygen at 2 L/min. via nasal cannula and notify physician. [x] Anaphylaxis/Reaction orders: * Stop infusion. * Keep IV line open with saline flush. * Notify physician. * Monitor vital signs every 15 minutes until symptoms resolve. * Check Oxygen saturation; Oxygen at 2 L/min. via nasal cannula if less than 90% or clinical signs of respiratory distress. * Administer diphenhydramine (Benadryl) 25 mg IV STAT, (unless patient has received as pre-med). May repeat once, if necessary. * Solu-Cortef 250 mg IVP over 30-60 seconds, use 100 mg vials for each dissolution. * Epinephrine (1mg/1 ml) 0.3 mg subcutaneously or IVP now with any signs of respiratory distress. * Check with physician for new additional pre-med orders if patient is re- challenged or re-treated. [x] May remove PICC line when treatment complete, after confirming with Physician. [x] If the patient is admitted to the hospital, the ED, or transferred via [facility] , complete transfer form including medication reconciliation order sheet. Laboratory Tests Weekly Labs: BMP, SED Rate Additional Information Fax lab results to Dr Briceño [phone]. Vladimir Briceño MD Mar 25, 2017 12:13
[2017-03-25] MEDS: ENOXAPARIN SODIUM 40 MG/0.4 ML SYRINGE SQ SCH (12:51)
[2017-03-25] MEDS: cefTRIAXone INJ 2,000 MG in SODIUM CHLORIDE 0.9% INJ 100 ML IV SCH (12:56)
[2017-03-25 14:00] VITALS: RESP 20
[2017-03-25] MEDS ORDERED: PHARMACY ORDERED LAB ONE (17:45)
== END 2017-03-25 16:17 | disposition home health service (06) | DRG 857 ==
LOC: HSDI 11:38 → N07A 16:18
PROVIDERS: ADMIT Orthopaedic Surgery; ATTEND Orthopaedic Surgery
PROC: 0JBM0ZZ Excision of Left Upper Leg Subcutaneous Tissue and Fascia, Open Approach (ICD-10-PCS; principal; 2017-03-23 13:17)
DX: T81.4XXA Infection following a procedure, initial encounter (principal); I96 Gangrene, not elsewhere classified; N39.0 Urinary tract infection, site not specified; M25.461 Effusion, right knee; M47.816 Spondylosis without myelopathy or radiculopathy, lumbar region; B96.1 Klebsiella pneumoniae [K. pneumoniae] as the cause of diseases classified elsewhere; Y83.8 Other surgical procedures as the cause of abnormal reaction of the patient, or of later complication, without mention of misadventure at the time of the procedure; Z96.642 Presence of left artificial hip joint; Z72.0 Tobacco use
CPT/HCPCS: 80048; 82565; 85027; 87015; 87070; 87102; 87116; 87176; 87205; 87206; 94150; J0131; J0690; J0696; J1580; J1650; J1885; J2270; J3370; J7040; J7050; J7120